=== PATIENT | male | born 1940 | race Caucasian/White ===

== ENCOUNTER 2023-08-02 14:45 | Outpatient (REF) | payer MEDICARE, OTHER, SELFPAY ==
[2023-08-02 15:39] LABS: INR 1.48; Prothrombin Time 15.1 sec (9.0-11.6)
== END 2023-08-02 14:46 | disposition home or self-care (01) ==
LOC: LAB 14:45
PROVIDERS: PCP Family Medicine; Visit Provider Family Medicine
DX: Z79.01 Long term (current) use of anticoagulants (principal)
CPT/HCPCS: 36415; 85610

== ENCOUNTER 2023-08-10 21:12 | Outpatient (REF) | payer MEDICARE, OTHER, SELFPAY ==
--- OUTSIDE RECORDS SUMMARY | 2023-08-10 21:20 | XMS_ITS | CCD ---
Author Organization [facility] Care Team Providers Care Rn Transport Name Role Phone DANNIELLE GAN Attending Unavailable RANDY SANTANA Primary Care Unavailable Randy Santana Unavailable Unavailable Unavailable Tatianna Yee Unavailable [phone] Franny Currie Unavailable Unavailable Unavailable Tatianna Yee Unavailable Ori Young Unavailable Unavailable Unavailable DO Karin Yeelin E Primary Care Provider DO Tatianna Yee Other Provider MD Ori Young Attending Provider [phone] MD Dannielle Gan Attending Provider DO Tatianna Yee Primary Care Provider DO Tatianna Yee Other Provider MD Ori Young Attending Provider [phone] MD Dannielle Gan Attending Provider DO Tatianna Yee Primary Care Provider MD Dannielle Gan Attending Provider Saran Slaughter Unavailable Elvia ECHEVARRIA, Dr. Dannielle Bland Referring Unavailable Elvia ECHEVARRIA, Dr. Dannielle Bland Attending Unavailable Estrellita AGN Admitting Unavailable Schwerer, Tatianna E Primary Care Unavailable MCGUINN, W CARIE Attending Unavailable Provider, None Primary Care Unavailable MCGUINN, W CARIE Admitting Unavailable MCGUINN, W CARIE Attending Unavailable MCGUINN, W CARIE Admitting Unavailable Provider, None Primary Care Unavailable MCGUINN, W CARIE Attending Unavailable Schwerer, Tatianna E Primary Care Unavailable MCGUINN, W CARIE Attending Unavailable MCGUINN, W CARIE Admitting Unavailable Schwerer, Tatianna E Admitting Unavailable Schwerer, Tatianna E Attending Unavailable Schwerer, Tatianna E Primary Care Unavailable Schwerer, Tatianna E Primary Care Unavailable MCGUINN, W CARIE Attending Unavailable MCGUINN, W CARIE Admitting Unavailable Schwerer, Tatianna E Primary Care Unavailable MCGUINN, W CARIE Attending Unavailable MCGUINN, W CARIE Admitting Unavailable Schwerer, Tatianna E Admitting Unavailable Schwerer, Tatianna E Attending Unavailable Schwerer, Tatianna E Primary Care Unavailable MCGUINN, W CARIE Attending Unavailable Schwerer, Tatianna E Primary Care Unavailable MCGUINN, W CARIE Admitting Unavailable MCGUINN, W CARIE Attending Unavailable Schwerer, Tatianna E Primary Care Unavailable MCGUINN, W CARIE Admitting Unavailable Schwerer, Tatianna E Attending Unavailable Schwerer, Tatianna E Primary Care Unavailable Schwerer, Tatianna E Admitting Unavailable MCGUINN, W CARIE Admitting Unavailable Schwerer, Tatianna E Primary Care Unavailable ELVIA W CARIE Attending Unavailable Schwerer DO Tatianna E Primary Care Provider DO Santy Mayfield Emergency Provider [phone] Santy Mayfield Attending Unavailable Santy Mayfield Admitting Unavailable Schwerer, Tatianna E Primary Care Unavailable Allergies Allergy Classification Reported Allergen(s) Allergy Type Date of Onset Reaction(s) Facility (19 sources) Sulfonamides (Antibiotic); Translations: [Sulfa Drugs] Allergy to drug (finding) [place] [address] DO Work Phone: (19 sources) Bee Sting Drug allergy swelling [facility] [place] Other (1 source) Bee pollen Allergy to substance 4 Unknown Reaction [facility] (2 sources) bee venom protein (honey bee); Translations: [bee venom protein (honey bee)] Allergy to substance 4 Swelling [facility] Medications Current Medications Medication Drug Class(es) Dates Sig (Normalized) Sig (Original) Albuterol Sulfate 108 (90 Base) MCG/ACT (19 sources) take 1 puff(s) by inhalation every four hours as needed Albuterol Sulfate 108 (90 Base) MCG/ACT 1 puff as needed Inhalation every 4 hrs prn Active take 1 puff(s) by in halation every four hours as needed Albuterol Sulfate 108 (90 Base) MCG/ACT 1 puff as needed Inhalation every 4 hrs Active atorvastatin 20 mg oral tablet (20 sources) HMG-CoA Reductase Inhibitor Start: 01-05-2019 take 20 mg by mouth once daily Atorvastatin Active 20 MG PO Daily January 05, 2019 12:00am clonazePAM 0.5 mg oral tablet (20 sources) Benzodiazepine Start: 01-23-2022 take 1-2 tablets by mouth once daily at bedtime clonazePAM 0.5 MG 1-2 tablet at bedtime Orally Once a day for 30 days Jan, Active Start: 10-17-2021 take 1-2 tablets by mouth once daily at bedtime clonazePAM 0.5 MG 1-2 tablet at bedtime Orally Once a day for 30 days Sep, Active Start: 01-05-2019 End: 07-29-2023 take 0.5 mg by mouth twice daily Clonazepam Discontinued 0.5 MG PO Twice daily 0 January 10, 2019 9:56am July 29, 2023 1:28pm CPAP Machine (19 sources) CPAP Machine Active digoxin 0.25 mg oral tablet (20 sources) Cardiac Glycoside Start: 11-13-2021 take 250 ug by mouth once daily Digoxin Active 250 MCG PO Daily November 13, 2021 12:00am Start: 11-13-2021 take 250 ug by mouth once payal y Digoxin Active 250 MCG PO Daily November 13, 2021 12:00am Start: 06-26-2021 take 1 tablet by mouth once da juana Digoxin 250 MCG Oral Tablet take 1 tablet by mouth once daily Quantity: 90 Refills: 3 Ordered: 17-May-2022 Marialuisa Deshpande MD Start : 26-Jun-2021 Active take 1 tablet by jim th every twenty-four hours Digoxin 250 MCG 1 tablet Orally Once a day Active furosemide 40 mg oral tablet (20 sources) Loop Diuretic Start: 06-26-2021 take 2 tablets by mouth in the morning Furosemide 40 MG Oral Tablet take 2 tablets in the am and take 2 tablets in the pm as needed Quantity: 360 Refills: 0 Ordered: 06-Aug-2022 Dannielle Gan MD Start : 26-Jun-2021 Active Start: 01-05-2019 End: 07-29-2023 take 40 mg by mouth twice daily Furosemide Active 40 M G PO Twice daily July 29, 2023 10:32am melatonin 10 mg oral tablet (9 sources) Start: 11-13-2021 take 10 mg by mouth at bedtime Melatonin Active 10 MG PO Bedtime November 13, 2021 12:00am Start: 11-13-2021 take 10 mg by mouth at bedtime Melatonin Active 10 MG PO Bedtime November 13, 2021 12:00am take 1 tablet by jim th once daily as needed Melatonin 10 MG Oral Tablet TAKE 1 TABLET Daily prn Quantity: 0 Refills: 0 Ordered: 06-Aug-2022 DO Active 24 hr metoprolol succinate 50 mg extended release oral tablet (20 sources) beta-Adrenergic Patti Start: 01-05-2019 take 50 mg by mouth once daily Metoprolol Succinate Active 50 MG PO Daily January 05, 2019 12:00am omeprazole 40 mg delayed release oral capsule (14 sources) Proton Pump Inhibitor Start: 05-29-2023 take 40 mg by mouth once daily Omeprazole Active 40 MG PO Daily May 29, 2023 1:00am Start: 01-29-2022 take 1 capsule by mo [facility] once daily Omeprazole 40 MG 1 capsule 30 minutes before morning meal Orally Once a day for 30 day(s) Jan, Active take 1 capsule by mo [facility] at breakfast Omeprazole 40 MG take 1 capsule by mouth 30 MINUTES PRIOR TO MORNING MEAL DAILY for 30 Active Oxygen 3 liters (19 sources) Oxygen 3 liters continuous Active warfarin sodium 5 mg oral tablet (20 sources) Vitamin K Antagonist Start: 01-05-2019 End: 06-07-2023 take 1 tablet by mouth once daily, then take 0.5 tablet by mouth once daily Warfarin Active 0 PO Daily June 07, 2023 8:06am 1 tab T, TH, Sat, Sun and 0.5 tab M, F, W orally daily; Coumadin 2.5 MG TABS TAKE 1 - 2 TABLETS DAILY OR DIRECTED BY [facility] Quantity: 0 Refills: 0 Ordered: 17-Jan-2021 DO Active Completed/Discontinued Medications Medication Drug Class(es) Dates Sig (Normalized) Sig (Original) albuterol 0.83 mg/ml inhalation solution (12 sources) beta2-Adrenergic Agonist Start: 01-10-2019 End: 11-13-2021 take 2.5 mg by inhalation four times daily Albuterol Sulfate Discontinued 2.5 MG INHALATION Four times daily - Respiratory 180 January 10, 2019 12:00am November 13, 2021 9:31am Use with ipratropium. Albuterol Sulfat e (2.5 MG/3ML) 0.083% 3 mL as needed Inhalation every 6 hrs Active Albuterol Sulfat e (2.5 MG/3ML) 0.083% 3 mL as needed Inhalation every 6 hrs Active allopurinol 300 mg oral tablet (20 sources) Xanthine Oxidase Inhibitor take 1 tablet by mouth once daily Allopurinol 300 MG Oral Tablet TAKE 1 TABLET DAILY DIRECTED. Quantity: 0 Refills: 0 Ordered: 11-Jul-2021 DO Active ipratropium bromide 0.2 mg/ml inhalation solution (5 sources) Anticholinergic Start: End: take 0.5 mg by inhalation four times daily Ipratropium [place] Discontinued 0.5 MG INHALATION Four times daily - Respiratory 150 January 10, 2019 12:00am November 13, 2021 9:31am Use with albuterol. Multivitamin preparation (5 sources) Start: End: take 1 tablet by mouth once daily Multivitamin Discontinued 1 TAB PO Daily January 04, 2019 11:00pm November 13, 2021 8:32am Start: 01-05-2019 End: 11-13-2021 take 1 tablet by mouth once daily Multivitamin Discontinued 1 TAB PO Daily January 05, 2019 12:00am November 13, 2021 9:32am Oxygen (4 sources) Oxygen Quantity: 0 Refills: 0 Ordered: 06-Aug-2022 DO Active predniSONE 10 mg oral tablet (5 sources) Start: 01-10-2019 End: 11-13-2021 Prednisone Discontinued 10 M G PO As Directed 41 January 10, 2019 12:00am November 13, 2021 9:32am Take 4 tonight then 4 twice daily for 2 days, then 4 daily for 2 days, then 3 daily for 2 days, then 2 daily for 2 days, then 1 daily for 2 days,then one half daily for 2 days then stop. Vit C-S.Dwjmiq-Eqnwgc-Ffxeo Sd (Tart Wang) 56-408-15-75-20 mg Capsule (5 sources) Start: 01-06-2019 End: 11-13-2021 Vit C-S.Qverdr-Iggrwt-Jnesc Sd (Tart Wang) 03-023-18-75-20 mg Capsule Discontinued 3 TAB PO Daily January 05, 2019 11:00pm November 13, 2021 8:32am Start: 01-06-2019 End: 11-13-2021 Vit C-S.Spajuv-Zwgxat-Nfjtc Sd (Tart Wang) 37-046-69-75-20 mg Capsule Discontinued 3 TAB PO Daily January 06, 2019 12:00am November 13, 2021 9:32am Problems Active Problems Problem Classification Problem Date Documented Da te Episodic/Chronic Cardiac dysrhythmias (20 sources) Permanent atrial fibrillation; Translations: [Atrial fibrillation] Onset: 10-17-2021 Resolved: 10-17-2021 Chronic Chronic kidney disease (12 sources) Chronic kidney disease stage 3; Translations: [Chronic kidney disease, stage 3 (moderate)] Chronic Chronic obstructive pulmonary disease and bronchiectasis (20 sources) Chronic obstructive lung disease; Translations: [Chronic airway obstruction, not elsewhere classified] Onset: 01-24-2021 Resolved: 07-25-2021 Chronic Diabetes mellitus without complication (14 sources) Type 2 diabetes mellitus without complication; Translations: [Type 2 diabetes mellitus without complications] Onset: 10-17-2021 Resolved: 10-17-2021 Chronic Diabetes mellitus without complication (12 sources) Impaired fasting glycemia; Translations: [Impaired fasting glucose] Episodic Disorders of lipid metabolism (20 sources) Hyperlipidemia; Translations: [Other and unspecified hyperlipidemia] Onset: 10-17-2021 Resolved: 10-17-2021 Chronic Essential hypertension (13 sources) Essential hypertension; Translations: [Essential (primary) hypertension] Onset: 10-17-2021 Resolved: 10-17-2021 Chronic Fluid and electrolyte disorders (12 sources) Hyperkalemia; Translations: [Hyperkalemia] 01-08-2019 Episodic Hypertension with complications and secondary hypertension (12 sources) Chronic kidney disease due to hypertension; Translations: [Hypertensive chronic kidney disease with stage 1 through stage 4 chronic kidney disease, or unspecified chronic kidney disease] Chronic Other aftercare (19 sources) Drug therapy finding; Translations: [Long-term (current) use of other medications] Episodic Other connective tissue disease (12 sources) Pain in left foot; Translations: [Pain in left foot] Episodic Other gastrointestinal disorders (10 sources) Dysphagia; Translations: [Dysphagia, unspecified] Episodic Other gastrointestinal disorders (5 sources) Dysphagia, unspecified Onset: 10-17-2021 Resolved: 10-23-2021 Episodic Other hereditary and degenerative nervous system conditions (10 sources) Essential tremor; Translations: [Essential tremor] Chronic Other hereditary and degenerative nervous system conditions (2 sources) Essential tremor Onset: 10-17-2021 Resolved: 10-17-2021 Chronic Other lower respiratory disease (19 sources) Dyspnea; Translations: [Other respiratory abnormalities] Episodic Other nervous system disorders (1 source) Unable to walk; Translations: [Difficulty in walking, not elsewhere classified] 07-29-2023 Chronic Other non-traumatic joint disorders (1 source) Hip pain; Translations: [Pain in unspecified hip] 07-29-2023 Episodic Other non-traumatic joint disorders (1 source) Pain in left hip; Translations: [Pain in left hip] Onset: 07-29-2023 Episodic Other nutritional; endocrine; and metabolic disorders (2 sources) Body mass index 30+ - obesity; Translations: [Body Mass Index 35.0-35.9, adult] Chronic Other nutritional; endocrine; and metabolic disorders (18 sources) Obesity; Translations: [Obesity, unspecified] Chronic Other screening for suspected conditions (not mental disorders or infectious disease) (8 sources) Encounter for screening for malignant neoplasm of colon; Translations: [INR raised] Onset: 10-17-2021 Resolved: 10-23-2021 Episodic Residual codes; unclassified (19 sources) Obstructive sleep apnea syndrome; Translations: [Obstructive sleep apnea (adult) (pediatric)] Chronic Residual codes; unclassified (4 sources) Obstructive sleep apnea (adult) (pediatric) Onset: 01-24-2021 Resolved: 07-25-2021 Chronic Residual codes; unclassified (5 sources) Tobacco user; Translations: [Tobacco use] 01-06-2019 Episodic Respiratory failure; insufficiency; arrest (adult) (20 sources) Chronic hypercapnic respiratory failure; Translations: [Chronic respiratory failure with hypercapnia] Onset: 01-24-2021 Resolved: 07-25-2021 Chronic Respiratory failure; insufficiency; arrest (adult) (3 sources) Acute respiratory acidosis; Translations: [Acute respiratory failure with hypercapnia] 01-05-2019 Episodic Screening and history of mental health and substance abuse codes (18 sources) Ex-smoker; Translations: [Personal history of tobacco use] Episodic Comment on above: Quit: 02/2019; Past or Other Problems Problem Classification Problem Date Documented Da te Episodic/Chronic Other connective tissue disease (1 source) Pain in left foot Onset: 11-27-2021 Resolved: 11-27-2021 Episodic Results Test Name Value Interpretation Reference Range Facility Basic Metabolic Panelon 05 Anion gap [Moles/Vol] Not performed Normal 6.0-15.0 [facility] Comment on above: Performed By: #### C BC, BMP #### [address] Calcium [Mass/Vol] 9.0 mg/dL Normal 8.6-10.3 [facility] Comment on above: Performed By: #### C BC, BMP #### [facility] [address] [place] [id number] [place] Chloride [Moles/Vol] 92 mmol/L Low 98-107 [facility] Comment on above: Performed By: #### C BC, BMP #### [facility] [address] [place] [id number] [place] CO2 [Moles/Vol] 44.6 mmol/L High 21.0-31.0 [facility] Comment on above: Performed By: #### C BC, BMP #### [facility] [address] [place] [id number] [place] Creatinine [Mass/Vol] 1.29 mg/dL Normal 0.70-1.30 [facility] Comment on above: Performed By: #### C BC, BMP #### [facility] [address] [place] [address] [place] Creatinine Clr Calc Pharmacy 57.81 Normal [facility] Comment on above: Result Comment: PERF ORMED BY: [place] [address] PATHOLOGIST AUDIOPROSTHOLOGIST CATE DOBBS M.D. Performed By: #### C BC, BMP #### [facility] [address] [place] [address] [place] GFR/1.73 sq M.predicted MDRD (S/P/Bld) [Vol rate/Area] 55.704 mL/min/{1.73_m2} Normal [facility] Comment on above: Performed By: #### C BC, BMP #### [address] Glucose [Mass/Vol] 121 mg/dL High 70-100 [facility] Comment on above: Result Comment: [facility] Glucose Reference Range is dependent on time and content of last meal. Glucose of more than 200 mg/dL in a nonstressed, ambulatory subject supports the diagnosis of Diabetes Mellitus. ADA recommended reference range Performed By: #### C BC, BMP #### [address] Potassium Normal 3.5-5.1 [facility] Comment on above: Result Comment: Spec imen hemolyzed, redraw requested Performed By: #### C BC, BMP #### [place] [address] [place] Sodium [Moles/Vol] 138 mmol/L Normal 136-145 [facility] Comment on above: Performed By: #### C BC, BMP #### [facility] [address] Urea nitrogen [Mass/Vol] 25 mg/dL Normal 7-25 [facility] Comment on above: Performed By: #### C BC, BMP #### [facility] [address] [place] [id number] [facility] Basophils Auto (Bld) [#/Vol] Ordered By: Santy Mayfield on 07-29-2023 Basophils (Bld) [#/Vol] 0.1 10*3/uL 0.0-0.2 [facility] Basophils/100 WBC Auto (Bld) Ordered By: Santy Mayfield on 07-29-2023 Basophils/100 WBC (Bld) 0.8 % . [facility] CT hip LT wo conon CT hip LT wo con [facility] [place] [address] [place] [id number] Scan Report Signed Patient: Elinor Flanagan MR#: [id number] 149 : 1940 Acct:[id number] Age/Sex: 83 / M ADM Date: 07/29/23 Loc: ER Room: Type: [facility] ER Attending Dr: Copies to: Santy Mayfield DO Ordering Provider: Santy Mayfield DO Date of Service: 07/29/23 CT/CT hip LT wo con: hip pain CT left hip without contrast TECHNIQUE: The CT exam was performed using one or more the following dose reduction techniques: Automated exposure control, adjustment of the MA and/or Kv according to patient size, or use of the iterative reconstruction technique. COMPARISON: 07/29/2023 plain film imaging HISTORY: Left hip pain for one week. No injury Adequate alignment. No acute bony findings. Minor left hip degeneration. No AVN. Unremarkable soft tissues. Visualized intrapelvic structures unremarkable. Mild SI joint degeneration. Lumbosacral degeneration. Benign sclerotic foci. CT/CT hip LT wo con IMPRESSION: Mild left hip degeneration. No acute findings. Impression dictated by: Brandon Quezada M.D.07/29/2023 11:46 AM Dictation Location: [place] [address] Transcribed By: [facility] 07/29/23 1146 Dictated By: Brandon Quezada DO 07/29/23 1142 Signed By: 07/29/23 1146 Normal [facility] Calcium [Mass/volume] in Ser um or PlasmaOrdered By: Santy Mayfield on 07-29-2023 Calcium [Mass/Vol] 9.0 mg/dL 8.6-10.3 [facility] Carbon dioxide, total [Moles /volume] in Serum or PlasmaOrdered By: Santy Mayfield on 07-29-2023 CO2 [Moles/Vol] 44.6 mmol/L 21.0-31.0 [facility] Chloride [Moles/volume] in S anju or PlasmaOrdered By: Santy Mayfield on 07-29-2023 Chloride [Moles/Vol] 92 mmol/L 98-107 [facility] Complete Blood Count Auto Di ffon 07-29-2023 Basophils (Bld) [#/Vol] 0.1 10*3/uL Normal 0.0-0.2 [facility] Comment on above: Result Comment: PERF ORMED BY: [place] [address] PATHOLOGIST AUDIOPROSTHOLOGIST CATE DOBBS M.D. Performed By: #### C BC, BMP #### [address] Basophils/100 WBC (Bld) 0.8 % Normal . [facility] Comment on above: Performed By: #### C BC, BMP #### [address] Eosinophils (Bld) [#/Vol] 0.5 10*3/uL High 0.0-0.45 [facility] Comment on above: Performed By: #### C BC, BMP #### [address] Eosinophils/100 WBC (Bld) 6.7 % Normal . [facility] Comment on above: Performed By: #### C BC, BMP #### [address] Erythrocyte distribution width (RBC) [Ratio] 14.8 % Normal 12.0-14.8 [facility] Comment on above: Performed By: #### C BC, BMP #### [address] Hematocrit (Bld) [Volume fraction] 44.4 % Normal 38.8-50.0 [facility] Comment on above: Performed By: #### C BC, BMP #### [address] Hemoglobin (Bld) [Mass/Vol] 14.2 g/dL Normal 13.0-17.0 [facility] Comment on above: Performed By: #### C BC, BMP #### [address] Lymphocytes (Bld) [#/Vol] 1.2 10*3/uL Normal 1.00-4.8 [facility] Comment on above: Performed By: #### C BC, BMP #### [address] Lymphocytes/100 WBC (Bld) 15.2 % Normal . [facility] Comment on above: Performed By: #### C BC, BMP #### [address] MCH (RBC) [Entitic mass] 28.1 pg Normal 27.5-35.2 [facility] Comment on above: Performed By: #### C BC, BMP #### [address] MCV (RBC) [Entitic vol] 87.6 fL Normal 83.5-101 [facility] Comment on above: Performed By: #### C BC, BMP #### [address] Mean Corpuscular HGB Conc 32.1 g/dL Low 32.5-35.6 [facility] Comment on above: Performed By: #### C BC, BMP #### [address] Monocytes (Bld) [#/Vol] 0.8 10*3/uL Normal 0.0-0.8 [facility] Comment on above: Performed By: #### C BC, BMP #### [address] Monocytes/100 WBC (Bld) 19.66 % Normal 0.00-20.00 [facility] Comment on above: Performed By: #### C BC, BMP #### [facility] [address] [place] [address] [place] Monocytes/100 WBC (Bld) 10.8 % Normal . [facility] Comment on above: Performed By: #### C BC, BMP #### [facility] [address] [place] [address] [place] Neutrophils (Bld) [#/Vol] 5.1 10*3/uL Normal 1.8-7.7 [facility] Comment on above: Performed By: #### C BC, BMP #### [facility] [address] [place] [address] [place] Neutrophils/100 WBC (Bld) 66.5 % Normal . [facility] Comment on above: Performed By: #### C BC, BMP #### [facility] [address] [place] [address] [place] NRBC% 0.1 /100{WBC} Normal 0-0.5 [facility] Comment on above: Performed By: #### C BC, BMP #### [facility] [address] [place] [address] [place] Platelet mean volume (Bld) [Entitic vol] 8.7 fL Normal 6.6-10.1 [facility] Comment on above: Performed By: #### C BC, BMP #### [facility] [address] [place] [address] [place] Platelets (Bld) [#/Vol] 182 10*3/uL Normal 150-450 [facility] Comment on above: Performed By: #### C BC, BMP #### [facility] [address] [place] [id number] [place] RBC (Bld) [#/Vol] 5.07 10*6/uL Normal 3.90-5.60 [facility] Comment on above: Performed By: #### C BC, BMP #### [facility] [address] [place] [address] [place] WBC (Bld) [#/Vol] 7.6 10*3/uL Normal 4.1-10.5 [facility] Comment on above: Performed By: #### C BC, BMP #### [facility] [address] Creatinine [Mass/volume] in Serum or PlasmaOrdered By: Santy Mayfield on 07-29-2023 Creatinine [Mass/Vol] 1.29 mg/dL 0.70-1.30 [facility] Eosinophils Auto (Bld) [#/Vo l]Ordered By: Santy Mayfield on 07-29-2023 Eosinophils (Bld) [#/Vol] 0.5 10*3/uL 0.0-0.45 [facility] Eosinophils/100 WBC Auto (Bl d)Ordered By: Santy Mayfield on 07-29-2023 Eosinophils/100 WBC (Bld) 6.7 % . [facility] Erythrocyte distribution wid th Auto (RBC) [Ratio]Ordered By: Santy Mayfield on 07-29-2023 Erythrocyte distribution width (RBC) [Ratio] 14.8 % 12.0-14.8 [facility] Glucose [Mass/volume] in Ser um or PlasmaOrdered By: Santy Mayfield on 07-29-2023 Glucose [Mass/Vol] 121 mg/dL 70-100 [facility] Comment on above: ADA recommended refe rence rangeRandom Glucose Reference Range is dependent on time and content of last meal. Glucose of more than 200 mg/dL in a nonstressed, ambulatory subject supports the diagnosis of Diabetes Mellitus. Hematocrit Auto (Bld) [Volum e fraction]Ordered By: Santy Mayfield on 07-29-2023 Hematocrit (Bld) [Volume fraction] 44.4 % 38.8-50.0 [facility] Hemoglobin [Mass/volume] in BloodOrdered By: Santy Mayfield on 07-29-2023 Hemoglobin (Bld) [Mass/Vol] 14.2 g/dL 13.0-17.0 [facility] Leukocytes [#/volume] correc tab for nucleated erythrocytes in Blood by Automated counOrdered By: Santy Mayfield on 07-29-2023 WBC corrected for nucl RBC Auto (Bld) [#/Vol] 7.6 10*3/uL 4.1-10.5 [facility] Lymphocytes Auto (Bld) [#/Vo l]Ordered By: Santy Myafield on 07-29-2023 Lymphocytes (Bld) [#/Vol] 1.2 10*3/uL 1.00-4.8 [facility] Lymphocytes/100 WBC Auto (Bl d)Ordered By: Santy Mayfield on 07-29-2023 Lymphocytes/100 WBC (Bld) 15.2 % . [facility] MCH Auto (RBC) [Entitic mass ]Ordered By: Santy Mayfield on 07-29-2023 MCH (RBC) [Entitic mass] 28.1 pg 27.5-35.2 [facility] MCHC Auto (RBC) [Mass/Vol]Or dered By: Santy Mayfield on 07-29-2023 MCHC (RBC) [Mass/Vol] 32.1 g/dL 32.5-35.6 [facility] MCV Auto (RBC) [Entitic vol] Ordered By: Santy Mayfield on 07-29-2023 MCV (RBC) [Entitic vol] 87.6 fL 83.5-101 [facility] Monocyte distribution width [Entitic volume] in Blood by AutomatedOrdered By: Santy Mayfield on 07-29-2023 Monocyte distribution width Auto (Bld) [Entitic vol] 19.66 % 0.00-20.00 [facility] Monocytes Auto (Bld) [#/Vol] Ordered By: Santy Mayfield on 07-29-2023 Monocytes (Bld) [#/Vol] 0.8 10*3/uL 0.0-0.8 [facility] Monocytes/100 WBC Auto (Bld) Ordered By: Santy Mayfield on 07-29-2023 Monocytes/100 WBC (Bld) 10.8 % . [facility] Neutrophils Auto (Bld) [#/Vo l]Ordered By: Santy Mayfield on 07-29-2023 Neutrophils (Bld) [#/Vol] 5.1 10*3/uL 1.8-7.7 [facility] Neutrophils/100 WBC Auto (Bl d)Ordered By: Santy Mayfield on 07-29-2023 Neutrophils/100 WBC (Bld) 66.5 % . [facility] No Panel InformationOrdered By: Santy Mayfield on 07-29-2023 Estimated GFR (CKD-EPI) 55.704 mL/Min [facility] Creatinine Clearance (Chem 57.81 [facility] Nucleated erythrocytes [Pres ence] in Blood by Automated countOrdered By: Santy Mayfield on 07-29-2023 Nucleated RBC Auto Ql (Bld) 0.1 /100{WBC} 0-0.5 [facility] Platelet mean volume Auto (B ld) [Entitic vol]Ordered By: Santy Mayfield on 07-29-2023 Platelet mean volume (Bld) [Entitic vol] 8.7 fL 6.6-10.1 [facility] Platelets Auto (Bld) [#/Vol] Ordered By: Santy Mayfield on 07-29-2023 Platelets (Bld) [#/Vol] 182 10*3/uL 150-450 [facility] Potassium [Moles/volume] in Serum or PlasmaOrdered By: Santy Mayfield on 07-29-2023 Potassium [Moles/Vol] 4.3 mmol/L 3.5-5.1 [facility] RBC Auto (Bld) [#/Vol]Ordere d By: Santy Mayfield on 07-29-2023 RBC (Bld) [#/Vol] 5.07 10*6/uL 3.90-5.60 [facility] Potassiumon Potassium [Moles/Vol] 4.3 mmol/L Normal 3.5-5.1 [facility] Comment on above: Order Comment: BOTH TUBES HEMOLYZED. NOTIFIED RUSLAN. REQUESTED PHLEB Result Comment: PERF ORMED BY: [place] [address] PATHOLOGIST AUDIOPROSTHOLOGIST CATE DOBBS M.D. Performed By: #### R ROLLY Sherman #### [address] Serum or plasma anion gap de terminationOrdered By: Santy Mayfield on 07-29-2023 Anion gap [Moles/Vol] TNP [facility] Comment on above: Test not performed Sodium [Moles/volume] in Ser um or PlasmaOrdered By: Santy Mayfield on 07-29-2023 Sodium [Moles/Vol] 138 mmol/L 136-145 [facility] US venous duplex LE LTon US venous duplex LE LT [facility] [place] [address] Ultrasound Report Signed Patient: Elinor Flanagan MR#: [id number] 149 : 1940 Acct:[id number] Age/Sex: 83 / M ADM Date: 07/29/23 Loc: ER Room: Type: [facility] ER Attending Dr: Ordering Provider: Santy Mayfield DO Date of Service: 07/29/23 US/US venous duplex LE LT: leg swelling Copies to: Santy Mayfield DO LEFT LOWER EXTREMITY VENOUS DUPLEX INDICATION: Left leg edema and swelling. Unilateral left lower extremity venous duplex Doppler study was obtained utilizing B-mode, color- flow and spectral Doppler. FINDINGS: The left common femoral, femoral, and popliteal veins showed adequate compressibility, color-flow and augmentation. The left posterior tibial and peroneal veins were compressible, as well as proximal greater saphenous vein. The contralateral right common femoral vein was compressible with color-flow and augmentation. US/US venous duplex LE LT IMPRESSION: NO EVIDENCE OF DEEP VENOUS THROMBOSIS IN THE LEFT LOWER EXTREMITY. NO SUPERFICIAL THROMBOPHLEBITIS WAS NOTED. Impression dictated by: Miguel Angel Bee MD07/29/2023 3:38 PM [facility] Tech: Stephanie Noel Transcribed By: KARAN 07/29/23 1538 Dictated By: Miguel Angel Bee MD 07/29/23 1538 Signed By: 07/29/23 1538 Normal [facility] Urea nitrogen [Mass/volume] in Serum or PlasmaOrdered By: Santy Mayfield on 07-29-2023 Urea nitrogen [Mass/Vol] 25 mg/dL 7-25 [facility] WBC Auto (Bld) [#/Vol]Ordere d By: aSnty Mayfield on 07-29-2023 WBC (Bld) [#/Vol] 7.6 10*3/uL 4.1-10.5 [facility] XR hip LT min 2V(w/wo pelvis )*on 07-29-2023 XR hip LT min 2V(w/wo pelvis)* [facility] [place] [address] [place] [address] XRay Report Signed Patient: Elinor Flanagan MR#: [id number] 149 : 1940 Acct:[id number] Age/Sex: 83 / M ADM Date: 07/29/23 Loc: ER Room: Type: [facility] ER Attending Dr: Copies to: Santy Mayfield DO Ordering Provider: Santy Mayfield DO Date of Service: 07/29/23 XR/XR hip LT min 2V(w/wo pelvis)*: Extremity Injury, Lower CLINICAL DATA: Left hip pain with swelling and pain at the back of the left thigh. No known injury. LEFT HIP WITH AP PELVIS - 3 views COMPARISON: 05/07/2009 AP view of the pelvis as well as AP and frog-lateral views of the left hip were obtained. No fracture or dislocation is identified. There is narrowing of the right hip joint space where there is also marginal spurring at the periphery of the femoral head and acetabulum. There is no prominent degenerative change at the left hip. Minor sclerosis is seen at the inferior SI joints. There is also degenerative change at the lower imaged lumbar spine. No soft tissue abnormalities are present. XR/XR hip LT min 2V(w/wo pelvis)* IMPRESSION: NO ACUTE BONY FINDINGS. Impression dictated by: Virgie Turcios M.D.07/29/2023 10:57 AM Dictation Location: [place] [address] Transcribed By: [facility] 07/29/23 1057 Dictated By: Virgie Turcios MD 07/29/23 1054 Signed By: 07/29/23 1057 Normal [facility] Anti-coagulation Progress No delphine 07-18-2023 Anti-coagulation Progress Note Pt is an 83 yom with a history of A Fib presenting today for anticoagulation monitoring and adjustment. This is the patient?s second appointment with our clinic, he lives on [address] [place] Pt?s preferred pharmacy is [email or web address] in [place]. INR of 2.1 is therapeutic for this patient (goal range: 2.0-3.0) and is reflective of taking 2.5 mg once and then continuing 27.5 mg TWD. Pt verifies current dosing regimen and pt able to verbally recall dose. Pt reports 0 missed doses since last INR. Pt denies any current N/V or diarrhea. Pt denies s/sx of clotting and/or stroke. Pt denies hematuria, epistaxis, and rectal bleeding. Pt denies changes in diet, alcohol or tobacco use. Reviewed medication list and drug allergies with pt, updated any medication additions or modifications accordingly. Pt denies any pending medical or dental procedures scheduled at this time. Pt was instructed to continue 27.5 mg TWD (2.5 mg M/W/ and 5 mg AOD). With patient living on [facility], he is agreeable to RTC in 3-4 weeks. [Electronically Signed on: 07/18/2023 16:50 EDT] Saul Rahman PharmD [Verified on: 07/18/2023 16:50 EDT] Saul Rahman PharmD [facility] Coding Summaryon 07-01-2023 Coding Summary HTMLBase 64 ZhnnedcxFVa8iZu+PGhlYWQ+P X3NTRIaG02dtQPbrN0hR7YWFU lOSywgQVBQTElOSyIgbmFtZT1 kaXNjZXJu IC8+VK7dTSCzVgdsvUTgk9J7o TN9B62htf3uSEofoLO8UAAuEs Ylodhin3nagVh2RMiwJzegAqB t UVZaqM44BWG6iN42Pr36vTNmn IAvf1cjzZq6UhKdWWWyVGD5nS rtPXklb6YyQIHyP42ruQJmo4F 6 YRDzzOiihBOnOwVwkEH5lG3wF Bwvyzzel3otkfagNtn2de03xE Aog3L5vGJ9L4DyrnW8HOKnySW g FhfiwBCVuF8tvknya7koozdlM lMcHWDfZRj4ICw8USDjlAgdEf NaMM47RLD0IUIucnVzT3KiLDX s wYnvIxW2f8T2Ph7LI6YQIgmfB 1VNTUFSWTwvdGQ+JV80uq94A9 QnKavbYfh2WSKfLOO4eFR2eW7 n MUCxJFtwt0C5vRA2K7LsesCky x6du4joYJMqSTxkL44eoRQvm0 O3FGHahEV0YOFqxVacVyJhuE7 3 Oyc+KARabSjxl4GjTwxqj7giz 4giwPz4MsccHKZytoXnxXwjLZ Q3b8BbHm6zCSEzvOO1nZB8jH5 i RcDeFhP6OYwbR477LmVdaKWjK dbcB81gH4CohLE+SMToZur6HT VtaSnbZR2eU7OqDNJqtbsumVE m rXgnWP3aUYWzcapiBEYvzE5mP TGuQ2e1ZhZrXfK9GZdsM7BvYR AtaelyWj89cY3eHhEtEhG4LYl u Z6WgpcX0XFCwzJOqVAxkEVU9L 04gv4W3THJfIORjVPX3kXO8kK 1hbGlnbjogbGVmdDsgdmVydGl j SZwgDEihQ357DXAuePmeAdNmF GluZyBEYXRlOiAgMDQvMDgvMj AyNDwvdGQ+HDTwKUZ9bTcmWML n tFXqMZdgZw2ipTaqpVfbKI9eV MBkakcgGTOyxE1sMKFtgMNeuR wsBN4jARMtlbjdf486HtSiBDU 0 RMGhxIQdQ8KkhU3uNyZoSUGqY XIiL7NfjUFjLZelK827UInnNy M2RJCoszMdR2HoPUOuyYjqGcD 0 v7F1Sk5He9IxvanbR6AjvVGjP kOgMuesEEg4T9DxMtplnRA+PC 05VCVkTO00RHf6ZAM1hIjcTAy i OSWcX1RkuO7bFnDvXXQhIQWkG yc+PHRhYmxlIHdpZHRoPScxMD RrWfFyiDdwMV5xPr2iWUXmKIE v hQawpZHpYbDbr5ouEGVjJKhbY P1yoNarP5NnrOC0CULzt5q1Ct 97C33oE4DwePF+KBBxsKQ8iTW 0 uB1cOjTvAwC4UNwcU891KeQxm WYgNyynj8lrc7jeaId0DuD4NF WborTcpThsEIK5s7BfYn57I30 s IHdpZHRoPSIxNSUiIHZhbGlnb h1weI8hHb2+XJMxrLR1wIW8xE 0jGkHuGyM5KDlmC479EjFkdJE v Lhjad0exg1vclNb5HbByODRhq rPgfKirCQQ6y7HnAh66A7DycT rbz8CdGmn9rd40oBBqu1T8lZK 9 V2BuYHYgnthnqLFdfWkmHC5rR DSyzgodYUDhsX8hKIErP8s4Vk JwJdT0SVyzO4TcljO2CZWhcAH g CDZnwJCGwI2mznklv1umcbibO mPgJPBuZNs7ENx0JRFqaVvoPp NfIMM1NiP4YAX5aZUcuX3sgJz n muffsO7lLvu+MVM9xWMhcTWBJ D2wXlqhaQV+FNYyMLD3fOftND lhMHTjeA3mAEHvL0f2KaUcOsT 1 MSnwQ1HpjaN4COXcvVLqOBSod XPIpO9kgcwjw3mpejsjEiZbPD SfJUc7KFm2ZVPybKevVxEsRUU 0 AnG5TCT1iMHpfA6krFgdfqzow G9wOyc+UxakwCksJWB6ZJp2J2 OfTuc1TJWjqWzlBI4abAAoKSm u Is0crTegpNiyCV0eORVjncxkf 397ZkGxw2vdQVWefEWlTNcbVY F7W40yk6J5OGNxYIUuFZJ2sFY 4 mH8xaWulggiriMYftLrzupHrc FbiCUxmYWuiS478HXWxkKhdZd XxJMm2B4ZiNuu8GJKubHmzNG3 n nGFzKRcdAm5yrZdxjWzfVR0wD EBavtnrd802CvLsr7hqANJieR UrHOlgUMM5Q71rv8J2XQFzYAB w PTZ6rQG7bK5zxTpjzlrnhBPuk NxfdiEubFmsWJljERjuJ542QV ZhqVcrBgFwbCj2H1ZgXzq1NZI z pBxuZC8rbLJdNBemLi4poAwpz UrdPR1rYHKloldpg564GcXaq9 gpOJDylZVuCIpyNQD4Q54qg6I 6 CYVyGXDpHZK3wQU2zO3pfEoax jogbGVmdDsgdmVydGljYWwtYW qtA463WKPlsHgwNxNwuEbjsgN g JRdqWKe2U2QrQvftrZD+PC90Y BFeJN34uOStnPPlt2hvjAe4Sv BhMBAaMTV5kUamGXxid3EzATT t Y50zeLAzx8Z3AINfjCeafFAcF bLcnUH8gT8fCQyhzoxuw6woek gcWxrmi0oumq90kX32M82tANq p XXLiSFIwCIVnYVBciTyase5eb G9wIi8+NXUpgPS4xNG2rR4lZL UkUwH4YMhdX198PpNoiASgGyo j w1wzc5jxcTp8OmK4JNGeskWbi PedECZ8i6GrVa60P53bYPcaWA XnTLPlRAFwYONmwEfemt4ueO0 w Ii8+XMFgaNY3cCJ0hR5cEdAtZ eD7PUttQ793UiAlsJMlHondA5 2gU3RzfJK+APGdZuy4EOSraJn s IB8ntWFeAGtsUi1uCSH1RbHpS bAzCJdhB3LzROYjifxyvkwjyL C5NPSmVQWofA00Ie6lcBtmPFW w vVXWnJ0umacem2uzhenoZiQxV OBoIZm6ALx3IYPidFazYiKmGZ R3GkJ0XVJ7mQAiaM4bqVvzqsr g lF8gB8EmSOUqbauiTx14lC9mJ gYeSnX2YAenTkp+J2rCOEDIQU LZL79PQEVeBPMHAC3XFA21TT8 8 cPMuu6T0aCO3C3RxOODsibbzf wbrwGH7GFEiXBRqfC17bKPfNL dhBa3of5F9p234PNGhYLBycM5 7 Qd0heEtuRAXmoTRKkZ7wfvzlf 7mqnanaNqWeVBYiVFb4TVd9HV BlgXqeCuIpKYX5PtJ0OIX3nTM h uZ4ugIdveozvbM0uLis+MTIvM CVeNRy8CzxqaFV+XAPiYXG4uY ztGCztMIHqiB7dFRDbB8b0MyO w GvR4HOeqN8YfSLVhcbuoMw57u G9xPkLjFtE2PEvsY7VqsaW1YF MtzKWzWYafQJQ9R37yb0O1UFB w HVLvBPH2zND6wR1iyIxzehdcr GVmdDsgdmVydGljYWwtYWxpZ2 12RSJndHsnMimhNEbsHFAkOA6 0 KX76oGXig7O5jLX3R9RpYSAkn dlbtqbcjJY9ABXzBZFiiZ21vB SeGLilFv4jv4M1z154IQSlLMW w bR74Ne9tsJwcHWSccANIhS6lu cxtq2ljgnveVoLcGNOeUUi2QN g0KDVxvVhtCfPdFSR4ZuP2DTV 0 hKFxvT9qeGeldyoxxZ0eFqb+T UFMRTwvdGQ+IBEjFGJ5lNdiJE ufGXDbxM5jNRWsX4v2MmVfKwD 1 RIbiC3DjZFSewlqcFs79kB7qZ sAtXzE2VZurB9KzgmQ2GOJywU ReRYzlQTK4X38bd1P8IZPxEKX w MNS7pGB8hP7gyEvcpisnpZWoj DjxbkPovWcnBOapUYjwM714VF CqqSbvYuAaX7XuiprmEuHQmUC w CMPsOL87MG84UL95B1XoLgayu GFibGU+PHRhYmxlIHdpZHRoPS nrYOMqLmAnxHmhFS0zYt3uHDN y SQKubOdlzEKfNjOjk0ggIWFuK JjaZZ5wrRklV9BepCM3SUDcp1 m2Oa55N59zD7OhhEJ+PGNvbCB 3 hIG4lL8xAoYkHiT9SRynI432H tUmfCGeKfnzw9gkv7tfeGn8Oa CaVQAbszOftMigJVL4x9YmLp0 8 S19eEMahXBKgRAYbJILtKQLjx Ichvd4ruW8bVl0+BYMeoZH8rK Y5nB1rGjHoFsB0XAhyG461EvP v mUJcPiflW68gY5SmhDN+PHRyP zl7YNOnzAwcLZ9cbHAyPDskOz 3sDDK8TeLkRyNkQWfrD4HvRZN p tivayjqxsCQ4UNIyDTSfyR23Y t3bpYutTk1kOLMzAFT8SWZsvT NiZ8OlmV8mBtClLFXmETZzJ1V l wMPfPCmhO779SLklJjJ0JRMst aCxQ1HfQMDbgLpxAfB3y1I2Fo 8UjNueeLVjPV8oJmHoDGt9L1Y k Ogj8ZJSgdDezHL2huIYfAUmaY q7nbDhhkTemUC2oOHHbmndov6 12NhHqm8fqVBKpkUOoCLzzEOJ 7 C26oi2H8ADXbORMkDOC7jWH3m F9iuZtesryvyPUoyWrkzsFwrE ukQBwcSEtiW984AMZflWmgRzL J Vnz3B7WfWuf5CVNrhGkvWA7ux ENcGWjqIl8dqJjrwKmwLC8qPC Cfcjkxc459LdWlu1juKEBwoOP g APyyQIR2G16ha9Y8LZEuKTTjM YU8qBV2uZ4hwVanjihmrGYpwF piuiYicYyjUTrxOMayW105YGK v dJbpBx5RMbi0A2WsMle5CLJdg YqyNN1snZIsFSfmLv1psUmsdN nySR3sCMMgactsy727WcRqw4i k LXPmoDPvUNiuDTV9X42qq2M1C FOoIQOrBAC2qGX3qC3ruHpihz ogbGVmdDsgdmVydGljYWwtYWx p K042ZWFepHxkAxMieCRkBvpvi GQ+VQ14bi30M6EgRfddZck3JL JbYDU3zZK7aQ5cOBIkNCqel5U 5 bGU (more content not included)... [facility] Anti-coagulation Progress No delphine 06-26-2023 Anti-coagulation Progress Note Update Note: 06/25/2023(Jose Antonio Law): Per Fco, here are patient's last 3 INR readings: 05/02: 3.37 05/09: 4.35 : 2.97 06/25/2023(Joslyn Bernard): LM on Kayla's phone for her to call back to set up appointment for Reji and her. 06/19/2023(Deedee Connolly): Left vm to get pt scheduled for the beginning of next wk. Shows next INR due 06/20 however needing to schedule both him and Kayla Dress and we do not have a referral for Kayla yet. MD will be back and able to sign hers on Tuesday 06/20 Progress Note: Pt is an 83 yom with a history of A Fib presenting today for anticoagulation monitoring and adjustment. This patient?s first appointment with our clinic, [place]. Patient is on the 5 mg strength of warfarin, he takes 2.5 mg M/W/F and 5 mg AOD (27.5 mg TWD). Pt?s preferred pharmacy is [email or web address] in [place]. INR of 3.1 is slightly supratherapeutic for this patient (goal range: 2.0-3.0) and is reflective of continuing 27.5 mg TWD. Pt verifies current dosing regimen and pt able to verbally recall dose. Pt reports 0 missed doses since last INR. Pt denies any current N/V or diarrhea. Pt denies s/sx of clotting and/or stroke. Pt denies hematuria, epistaxis, and rectal bleeding. Pt denies changes in diet, alcohol or tobacco use. Reviewed medication list and drug allergies with pt, updated any medication additions or modifications accordingly. Pt denies any pending medical or dental procedures scheduled at this time. Pt was instructed to take a one-time dose of 2.5 mg tonight, in place of 5 mg, and then continue 27.5 mg TWD (2.5 mg M/W/F and 5 mg AOD). With patient living on [facility], he is agreeable to RTC in 3-4 weeks. Update: Today is patient's usual 2.5 mg dose (Saturday). He was told to take 2.[address] of 5 mg (). [Electronically Signed on: 06/26/2023 13:22 EDT] Christine Law S PharmD [Verified on: 06/26/2023 13:22 EDT] Virgen Lawp S PharmD [facility] Provider Orderson 06-18-2023 Provider Orders [id number]#1.00OTGTI [facility] PTon 05-23-2023 INR Coag (PPP) [Relative time] 2.97 {INR} High 0.91-1.11 [facility] Comment on above: Performed By: #### [id number] #### [facility] (DEFAULT) [address] [place] [address] PT 28.0 second(s) High 9.7-11.8 [facility] Comment on above: Performed By: #### [id number] #### [facility] (DEFAULT) [address] [place] [address] Provider Ord[place] 05-23-2023 Provider Orders [id number]#1.00OTGTI [facility] Coding Summaryon 05-13-2023 Coding Summary HTMLBase 64 TnzqgbccOGn3jZf+PGhlYWQ+P O7QTWHhY42hxHFdmQ3yC7LFZE lOSywgQVBQTElOSyIgbmFtZT1 kaXNjZXJu IC8+UM1mFYVaPwodxACve7O7c WS0W86nkt0aVJwpkHO7QEKoUn Whlrtys4bylMs9ZUhiAarwPcQ t VBRriP49WUM4fP43Md24cFTbb KFwt6tafNy1TwNoEXQcGGN6sK xcOYida7GlDCPmG64bjJLtl0D 6 AIGfkAdndXOhXhRdkXM4cB7wW Hxvomicl2baakvjUsm5ya71aO Qwp7G7wWX3B2ZvywJ7MPEpdLF g QynfzAFDgH4wrruvu7vubzahD cFpNGSjRTm5OAz7UKNyvXfyDr UpXE22JXD1QYXowvZmH4IcHRB s gKqeDdS8t6V8Gn9VG5QXIdgqO 1VNTUFSWTwvdGQ+DD06lm65C1 VcIcohFkc9YZWdGPF0pDO9nE7 n UWPjXJart0T9gPS1H7MttsXhz p6zk6ikYXTvMMqiV38bwDNzo2 O6OTYoePH6CXVzzGogQoJpbR2 3 Oyc+PSMgaWiza1MhIoekl7qne 1zndMj0DoijDWZlqoRtcWxcZB D9n4JgNb4bQGGdjBR0cUY9jS6 i MfBmOgE0HVtbY780PmImhUQwI vquC50tA5OthTD+UMWsGrj0FV UudGufCK2eL3AnLPVrldhsfSI m uRskAX2oXGJbkergHMPirD5dF JMnE5m6WbBkZyY1XSgzU5KfHP LcuapxAk29yK7xAzYxRdF8MCq u D0TroqQ9YDBxpPEqADrhUWA2T 76cy8N7WLEeTTWsGHA5cZF2wK 1hbGlnbjogbGVmdDsgdmVydGl j TTndIWtxV205RPZehPcgTvRaK GluZyBEYXRlOiAgMDIvMTkvMj AyNDwvdGQ+ADBrCII9eXlaVAA n xPUtAYbhSx9dtOqelArjFW4kU NSlrsgmKMRzsJ3yHAPdqUNqcU mcMD5bMSDsfhrbh981FvGfQPC 0 LWHpvFQzE2BghZ6kUaFtUNGkI KAzP1VzrCGkIZimE515CXhcJi N9GCEnliTbO6IyAYWawIkyKwF 0 u7U9Xt2Mk7CpdldvT4AyuSTcE jDkPaglABo3G0JyUoggxUX+PC 85HODlFV89TDd9TZX3yKftIEq i THHrO0XrdP1vIxCkCIGlCPZdJ yc+PHRhYmxlIHdpZHRoPScxMD AvKzJiyKgxAG0fRc2rTZTxBGD v cTmcePFfQjShq0txELVeKSmqP Z7uqLmuU7BxzMP1YRDdx3j6Nd 13K90gM3DvoVX+SRYieSR6uQU 0 dK2jFfNmHiL4NTwxE703EjOhh QXjBliar6fzl0ikxMr2JwF1KC NxdaCvwKcwOCG9x3XyMp44K13 s IHdpZHRoPSIxNSUiIHZhbGlnb i2qyA6lRp1+MFUibIE4pOP3nJ 8fBpKjStC3ULhmX936EcEehIV v Craxg5cjc0jyfIs4WvGlIQUfv sYibXcaOXR3x1LdIs57D6PfnY cfr4UuWtm0ao22nCSgh6E8aIH 9 X0AzTKPtodnbiNLefGagOB5aP ZFtrjinOJZxvG0hYKPsL2t3Vl PySrY0ANlxL6UduxQ9DRAniUZ g VATyuJJCcC5cgylnm6jjstxmD xVaXXZgEHe3CRu9OWXeyQzfDa YsZNZ0NzT9AVI1kOXteI4fhGb n zddrfK1xFsn+BJB3pXDkiRMVE P0xBcbuvVR+DDDmJEB5tSinDK ntSNPmkC9lVAArH9j7BiOxTeP 1 AQdhO8BrtdF4MTEpmLViPVGww TAZiR3yywwac4ijihtrWvHfQW VjCTt1QLo5ZUDejUfiPfDbBKS 0 VlB7SBL4gPTbhF8djNuuvtzbz G9wOyc+UnfxqYjnDHU3SSs8H2 BbNgy5UFIeoWryZT7bbDBfIUe u Rm7lwJrxxFdrLN5sCTQwemxqd 264FcTim2qkIHEwbWOwFOxmPS V5W05ly3N5RKNfWWWjZJZ9kGK 4 yP1gmWefpbwyiRLreUaaunXvu ExuNLcuCKmsF124ZJZkwDrsFr YwFOh2T4QaMjx0KWIscBioTI8 n qWBgVEkeIz8bsJjinIpsJW9nL TNeqxmny195WuQmh6iyHOYydU FrWXihSZZ5C74cv5E7SELwXCC w MNJ2wYF8rL1jyHhnerbflXJbf KveteTurOlgVRbjORttN731YS XmhEiwQaOfzSp8B1EgZih9AFT z fOuqDG8bjWEuQFqkDf4vsYcae TvtBS0bRDKfgnbxy329EoDoa3 gcWUNkpASrLYwzDIM3I58ez8B 6 PFFsZLWsBGU6hIA3oW7pkBlfo jogbGVmdDsgdmVydGljYWwtYW opW510TWZsxJhfNqQbbNzweyO g NZkbKWe4I6DtPkrphKZ+PC90Y PKzTU53tEOegROum7izzWy6Uh QeJPOnFWU6jTflEMjnq9PdYUJ t W94fwBNsa1J3BOXxlQainZUoB aEgwBR9iT1jDUupbsehf0ywhf loPpugy6ngbd21tB56B01oFOw p RZJsJDJcMWTnCCLvfHksrl6ea G9wIi8+FZGovRM1uKE9bZ6fSV KnPxH4HJzfJ619QuZfoIEeZwl j f0goz3qbyYr1VbS7WIAmyqKif YcjROP4g3JlMs30H54oPUwjVR YtJIMyZMGvGXHroFhlpj9rpP2 w Ii8+WXLnsEA5oEC0fU2tZkJpY iM5TVmhS623SfEroSCsOzsaJ0 1sS2DehJY+ISBdQhm1FGObkZj s BS8ryILvXYbcPs4tJKL2DrBjM eDyAMnuS0JhGUExbdvqvwrtfV M5WCEbWWNfuP69Be0bwUqnXWA w vEKChQ5icqvgl7simunfEaQnG HNpSFe5CEe2GOBhxKbaUeStVW M0JbS9UNV7uHRfdC4utZipbjd g xT4wO4MtLKZpnpxjWd66zY4hX tJwOsR3YDxfYtl+D5hEOCARGX CJB32QZIKjMVSWPO1DGJ20BL3 8 hCIwq3J0fVM5L5FsHDFzxfdcv oxloSN9MGRnQMMncR33vQMlMH whEb5bj6Y8y686TNRmMSEgmN4 7 Hx1aoTqcHPZhrEJSiL3howuid 9kljznzNyJkHOLsZAf4KUx2PE LbmZwoSiWdWRB9XyX6EME7mJR h mH3zoLqevjorqB8jWxf+MTIvM GCnICz3AsvzbPV+MGCxZPA4lD fdHBbwFSYcsU6nFFDmT7d8XzP w AaN0ZNqsH9FfPXRpbtshAe15d Z1fDxXcCyJ1QOeiF1LacuR3BT VeaHXbDZycMOX2K11ff6Z9WVN w AQVwYHK4wCX2sC0cnTavhddaz GVmdDsgdmVydGljYWwtYWxpZ2 21LAWjrTtgTvfyJSvsKAQjUC7 0 KG30nJOel4R7vMN7L0TkPSUfg ualuhxjxRQ5BNJjAECegC75eK IdJIazZs6iw8D1t777HZDhHDV w hQ97Gb6ghZbsQWQopOLVkR8is rynk0hjolfxVrKcJQXoNWl8AL h9MCKcqFikClBwTDF7MmQ6UQU 0 gZTahO8jfSyzvhsbdB0cMcn+T UFMRTwvdGQ+DIXaQTU2gIpoQB nfWHFqqI9mSKIzT5f7PuBvEyJ 1 HFruL9SgQINiysozTx17oH7bJ cQzPlX1IDlvN0ReocV8ZAQqvE InHXxmHDR1L66il2K5WKQuWCU w FBG5vLV8hN1dwBwvesojhWPwh MxmaqLwuMifUJvsJUjmQ009KT XzcJlwCx2DDI69OW58L8XlUyd v dGFibGU+PHRhYmxlIHdpZHRoP ZouLBAkNeFjiXgvXH6qTs6sOZ FtOTKjtXfebNRiHaDce5zdZHZ z PRarAU0rzBceW3MjxLI4MYCtv 2n0At40H37mY7SdlEH+PGNvbC Z2rZA4tM7sBcRkYiD2QLvpB04 9 BuSkxXKtVtfxs7tfr7aykPf9L jVzWASnqlVflQbkXHA5r0DdIg 07W43hKWazVZBhSZLnAFNkCSE h uEbfsn0hiB8wBo1+AYQrpZN2n PV8sT6hRnXzEdP3ONwoC161Ok JciHFfTkqcK45cX1TooTN+PHR y Oum3DXTuaMsuFZ5qwNDhXFdnP q8rNOI4EhRvWlGgKAmdX6WjQO KmuwzwuarrwFV9EFWfRIOxbZ7 7 Ir1cmDkmEo7kBNEwAPH1ZSUvq CCcS8YxyL7dIjBkTYFnCPPkD1 TjoOXiFEgxJ967PLlqNhF2BEM l xbQiW6TgHIZboQxkTbJ7u7U7A w4QlLitrBTuTL6eTcIyCPn8U3 UxXrg1HEPgkNsrJW0xcIJcJCe u Qg7jgNuhqEiyNP1pRZEnpvvqi 256GsVyp5auIBYubVHpTFkaHU V3Z07ok7W4TTAuHHUhGXB1jCE 4 qY1jnIfmjevzeZAgeRpdyrHot MwuTXowRQbzY563ZCWmhAzsOu YCZpj1H6YkEcn3YNGdkQgdRO8 n pUAtNRwaHx5kvLrqsSnmBM6wK FNkxmhvd544GbIkw9ivXPCdlV FiSGaeKFI6L38hj7T5IQGfCJG w REM1eLS5oX0mpIfilxrbsAPsd MqxutAswRrzZUujOShpM850BY FojUocAc2MQav3G9PiBtp7DGZ z dKrpHT9wpALlZIwuVg6qxXocm VyiVS3uPWSymifoh310MiQbj4 lzJPFkgJHfLOijGSW7X65tz6Y 6 DHHaXBEoNPK9uJP8oZ2bxUuvn jogbGVmdDsgdmVydGljYWwtYW ggI192UTXnqRuqLdBqjZIlGwa v dGQ+OT27ua58S1ZdZrjeVou6X GKnEEJ9jKZ5xQ2gYCYcRByfd4 R0yLR2T7SinkZtne4ha5otSCN z ZTo (more content not included)... Normal [facility] PTon 05-09-2023 INR Coag (PPP) [Relative time] 4.35 {INR} High 0.91-1.11 [facility] Comment on above: Performed By: #### [id number] #### [facility] (DEFAULT) [address] [place] [address] PT 39.6 second(s) High 9.7-11.8 [facility] Comment on above: Performed By: #### [id number] #### [facility] (DEFAULT) [address] [place] [address] Provider Orderson 05-09-2023 Provider Orders [id number] F Normal [facility] Coding Summaryon 05-06-2023 Coding Summary HTMLBase 64 CpduuhddFSa4oKt+PGhlYWQ+P T3KYRIfX82uvNZloZ5iO7WCJE lOSywgQVBQTElOSyIgbmFtZT1 kaXNjZXJu IC8+DU9xUYKbBmeuhIOiy8K6l KR2A33efy7zNAbbxJT5IPDgBz Imfukoq1ydlMh1MOgmUkshDyD t KRTniJ02VBH5cX10Nd22eXTth OOkh3fdqSe5GfIbMMWzLKY2uN vuPCuek0FkHXWrI69riMUmq9G 6 SJUxhQxtgXAeKwJvhPM2iI8uP Iomzlmhi3pnpvccLml8pp05rL Lhz5Q1zNI1P3JstrR6QUCoeUJ g WhlvaMZRcN5imzhxz7huvtbdU hNrDFYeIFc8MOh0YXEblFdpZr NzRW76TWS8UJNbhtOxH5HjZNI s mEgyEnJ2c8H9Rb9YU1JMOgsdT 1VNTUFSWTwvdGQ+QB60sz26D4 AaOmslDuz2IEJoVRZ7oBM7tZ6 n RCEyRAujy1G8uJP6R0GrebRgw o7yj6wkLFTuHLkiG71zoRLiq2 H9MVFybDT9GZMivHiuJxNtbE8 3 Oyc+BONdsBxqh5RoOchmb6ptx 5qyiYq5QounMABzhyZqyMcmRH N1h5MdSw8hRONzqGJ7cAV5rO0 i VsXgUzG6LAdeF335NmZgpDRuG rpaW93kJ9LhzEA+DTYuXsp8FO LycHwtVT0uM7MbCHVwoiaqbYO m gVeoNP2nRKDgamfiXORfwZ8pM ZXuK7j7KeSwGqC6AGviI7QbDH HvphixNw27lM5qRsHlLkI0TYf u W2SyeqW4OAYkgUWpJPzoTXH9L 85vw3S9CTIdMLZhAPN4pOW3yA 1hbGlnbjogbGVmdDsgdmVydGl j LMfcRLzsG239HEYikOqrApUnV GluZyBEYXRlOiAgMDIvMTIvMj AyNDwvdGQ+GTLqIBA5bQarTNW n kWCsEJdzFc3wgCbabUqaUK8lH WWerwjfLMZkyK2rPINygDCihV chFA4mISBxruadp568MuFbCNI 0 GCEkvFMfX8GkzS6zEpYwSEUsI SXsN6FqmTAmNEweA831ASjcQc S5USMhfaCnL4CoQEXzfYrgBjE 0 p4M5Mz4Ny5GwmatpG1CgfNIsD fCuFdlmGCe3J9QaRfbliLR+PC 99WDEjAO72GHk1RGX9mAqmMHp i LJHjN5UdoQ9nEqPvQSRtWOCdU yc+PHRhYmxlIHdpZHRoPScxMD SyBvTehPbuBU2wOh9qDWJrMML v mFuqdIAgUjZok6lqKDXiOTbjW Q1eeLyqC6MobDV1WFZcp1d3Tv 98K58tE1VysZQ+ZZWmnXX7gTW 0 sC7lJlWmEeP7QIkzJ186KbEnq WViIqkvl2prr2gyrAd0MrC4XC CkkyPhcIxpXIQ2b6OoAy44O60 s IHdpZHRoPSIxNSUiIHZhbGlnb b4gbC9yWd0+JLHrpBR5wCH9kF 1kJjJjMlR5EYopS466BhGazIH v Xmnsf4tla1iebCs9BcGjAICnw bBrlMjdHDC9a2DgWn18M7UdvE wqs7RcSkg4qt27kGFpj4F5lDG 9 Q9PgECXtxlvviWOtrAugJH4oP TSvkmudEWAquQ7eOONqF6z4Qv TcHlM6WPpgQ5SogrW1NTFiuHF g NNFusDYGbB4nngjar1ciakxqM qUkNQLeLSx7KJu9UJNksSvxLl IpQOI7WrC4SBK8tDVrxP1auNa n jdxolB1rPdq+HYC8yHXeoSVOQ D4zNdwsgUB+BWYdSGE2xLwvCT bjQQYsdL6hNBRmY7j3JrYiOkN 1 OCifQ2YiigJ0OPJtdAFxRWTcu HUHgT9grdisj4atwiitZwHaTR RyRSw9FSa7ZPFihYvqPeHgSTY 0 ZwM8WOJ0iSPyhP4byXzwjnsoh G9wOyc+XwxxeXtcHYU4VUf8R1 ZlNfi0BKKndZedGU7koKGvROn u Jr4crGmrqDpyYY5pVFQiulahr 855NnEnn6cwHQUytPUcSEcuOW O3O31cj0P7HWHdPALoSEJ9uDF 4 hU1jkWvatyqbhUPimDytbyLqj OjjVOvvKNgoI782RFWniKpjOi RtHDp0V8NzIdz3EWKfvYejLP6 n sBSpIAqfGo6nrDxqgYswEQ2iR WNfspazf912EeSaf7qaEQLckP RxOVbaYTG4B87yi8Q1ELBePZL w HHT4tTE3iL9spFdpvuysiYNmv WhgokXmvQolRMlbZDvmU426LS DiyKkjSfOnsLq9O5OvKxr1ZVZ z jHvnSJ6ucLOfTIiyJn1zyTrky NbwSH5jUCAmdlret717GxRpi9 swQYJuoHWaQGkgRNF5O74wg1W 6 PQBkYLWaQKY8pWL5xO2sgNjkg jogbGVmdDsgdmVydGljYWwtYW duG041ZIPtoDjcDwFleMkfqlO g WItmPXo9M8AeMsuldQJ+PC90Y CGwSH95xUPgnNPrg7fvdOm6Kn HhQSStZEG7kOiiGEufd7FeUIK t O92ioRHfm5A2AWFhhTukxGAyY qJcpDS3xM4sGNjnrgzes5tutb ntOsczv7bgly88nQ68Q69zSNz p UKXsXZBgLQDiSIAdjQevkf3gz G9wIi8+MDDkpSP6dLR4iC0yDZ MzTxG7EAciX381OeKioPSmTmz j w6ioa8maiQv7SpB5EDUkguBnt WogCGU8u3BxOq52K64oUZkePQ OgJKVnOCObPGFjpXnpua1sfT5 w Ii8+XMRxtQZ5oMX7gJ9eCcFoT qX4XQzsJ670IxJmgYBhOvklH0 6eO9GpxWY+FOWeOdx5WQVsdQb s RH2khCRjTVijIu3bLPU2RoTiR qCxSHuyC5AbKVDeqlwxceicoL Q3VAZuGFNkzD98Da4uzEfpLMA w eCPDvR6xdpnra1qhlablAuAsK UYtSHg1SZe1FIWrxPvvHdPfFL S3FxN5KOI1aUUsvS0ywSxfpnc g iO0iB8KyYDVdjfsmNt36sO9lI qZpPtB9ICfjGdj+A8kZKPVBIJ JAH30BDMWqALLWNZ7ZDE75KD1 8 fYBna6L2xHM6X7CwBSZwjehek fvifLA9FWIgGHZpxY13gPWpCP lbWt8bt9A5h537PAFrQEMorA9 7 Ii1bzSxwPDNbyHZNwW5foxwxf 7vntzqqNeMqTIClKTs8IHe7JU TawIgnWsQlPZW1IzY2GDJ4cQU h jG8kpImbgkfpcO8sRwf+MTIvM PQfBAp5VkuwfOV+DIOsBYY2aH gcGPsqHDGtbC7fZJPlT1a7PtJ w KnR8EIyzN7LeEALzlczxVm24a I3oFfAiNgL9EGkuK7IikxX9SL GraZGdNPwwEGK1E33bc2O7QDT w PJMnEIQ9cVV6oH1vlDiyjpdfe GVmdDsgdmVydGljYWwtYWxpZ2 61AAJwfKggOboiALxqMJFkTC1 0 FJ55uABvg9M5dES1P1FhVSBaz ffggjdogDK4LKJgNATytZ17yI WjUYnzZu5zy1Z1c635JDPxOCS w aY95So1tdXafECLiaYAHrK3dw ootc0nxffueWdCnIMZhDNo8LO y6ZXEzyEjxMyOaBMH6OcN7JYJ 0 gEMqdZ7zhSikidmrsI1bLdt+T UFMRTwvdGQ+PNLgAGB8nWotOA xvELRqmP7dSMZxV4o6SnFwRuU 1 WVidS9VvHRJzcevoCj12yQ2sB qXqUmR3KLfnM3StmwF0ARSyqX KyIWsjUJL5Y26tc7A5FBIcHNE w BLA6fSX1jU3ngOqtjrysoTUny FsemcWztHdkMSyuCAfpO249VQ ZoyZouMx7QVD63LG98D3OyQvo v dGFibGU+PHRhYmxlIHdpZHRoP ElfSOYsJoIqkWuoXC0rIj0mSV YyNILmfBabkPJpFfGin3xkOMI z PVjkPS7tnQaoS2JfiMT7GLIja 7h9Jc62N74gK7NwuJZ+PGNvbC D8nOR7jN9wEgAgZjW1SGikN14 9 DmOhjMZxWdaeo9gof2ahuGl1Z kTgXERhwwLstPkbAVJ4l9HcLi 90D37eMRjxLARfBVGqYOFqJDW h pRrrnq4ccP0xWw6+CHStdSL4u QC2tC9dVbEtFmZ1SQfvW149Rt BerSZjQufoR10tZ8YvgWP+PHR y Qis0TAHurCoaXQ8aoLXnSBjeF k6wPAQ2RtXwXyHoUXitO3MtHM UpkreekbotzJD5NTDaTCSqxP9 7 Dg2viYdxBe6jNKQrJKX5EADyz ZWjO2KozU7jIzPrMNTqFAQyY8 IcpHUpECabD177ABlsKzP6LSI l beAaW2LkXPUvdDkmQyI9d9Q5O h9VxXvjdXJoVA2nUyWbFTa3M5 PyCae3IBKpkEykHP4hgGShUGa u Ez2mpOcnmNqvRD1dPFSefbvmm 610OqWls9yrGTBnaWQpSOgaTM L7J82jf6J2HAYwAWJnRSR7vYC 4 jU6deKqfwnfaiLLroCoanmMra KchCMnqABxhY149HPGldAwxEa UFBbd3Z4PfXzr5NWYfzBuaZQ7 n lWUvFMnwOa4mrKrauVcjXB0oT RTgxnznz357YlDaz2frBEYxjC PdYChcZFF1M32yn7B6IATiDEN w YXB3uAS7wB5ljOrpxccdnSYqg RizgcSpvBbrBYexQHxnM536XF OyrHtcAc6XThp7S9BiBhe4GAS z zCzlFB1lqRUjQOeyYt3avTqdp DccGO1zFMPkcdonk975ZaKqb5 hwFZYelXDbIJbuXNZ0B99my0U 6 YHXwRZGrUYJ8hVQ5fZ5qgQkeb jogbGVmdDsgdmVydGljYWwtYW zzJ998YVVzyVpjMzRuvAIjIog v dGQ+KD01wc86G3MqHarvZcw3K MNfVOG6jJT0mD3hINWvBPdov5 C2zLU1I3BbamGdiy4tu8nyINJ z ZTo (more content not included)... [facility] PTon 05-02-2023 INR Coag (PPP) [Relative time] 3.37 {INR} High 0.91-1.11 [facility] Comment on above: Order Comment: fax t o Dr. Gan [phone] also Performed By: #### 2 [id number] #### [facility] (DEFAULT) [address] [place] [address] PT 31.4 second(s) High 9.7-11.8 [facility] Comment on above: Order Comment: fax t o Dr. Gan [phone] also Performed By: #### 2 [id number] #### [facility] (DEFAULT) [address] [place] [address] Provider Orderson 05-02-2023 Provider Orders [id number] FF [facility] Coding Summaryon 04-03-2023 Coding Summary HTMLBase 64 UvpnzvpjYEg4hYl+PGhlYWQ+P B7NEILkH01ixIQqeD6xO3URXN lOSywgQVBQTElOSyIgbmFtZT1 kaXNjZXJu IC8+DG7oWTZiDlbeiMKwy5P7v SZ6N71mwo2sCYkinNQ0MSAqZr Rbfowap3ormFj7MMjbXodvKuU t THUjnU02AOL1bR49Sb66kIXju PSqc8pjsQn0CmPiOLIgQVO7zE fiAVorz6CtDNBuC16dnVRbs3Z 6 YGXdxZsdhPMsXtYuuTY0zV2wQ Jkislvpf5agrpexIrs0ju87tV Agh6X4kJD0C3WooyE4ULZgsRC g EpuisBSGkE9kxspoo6qjroqkR nEhHXOjTEz0LLc1JBUprIjzIu ZeSU34AFE4RWBwyhZhS7GnMPR s iDoxOsL3e6N4Wz5WF7MLGuzmF 1VNTUFSWTwvdGQ+SG87qd51P1 JfOeprEdz4DWWpTIO7vIT7rH7 n OXZtTRfyl3A7hRY8B6HclkQht d3lq6pjJLDpELpeT58fqCDja7 I3SCUrgWD4DJZcnOfdJfUtdU0 3 Oyc+GOBfpYvad3EjTycjr5wsy 0urlGd8BjxfVADmojCmmOpsUP H3q9WlGw8nIIHqnFU3eJO9lO2 i ZlWxDuI6DFunE283UqTsdHFjL rudY36vM1WtbKI+EKQqZnd7EH QylCblOM6rV7PyILDgdwcfrYL m dNlgVR0jHOEfiklcWXKkxP3pL IQsK5b1ZkCqYaE7AAbdS9OxCL ZbjpyuOz65aG1yWmWeBqS2TSb u D2VnxaA1ERQdkHKyBOetAAM7W 35ie0C0WKQkQVTgWPC6hLB7nD 1hbGlnbjogbGVmdDsgdmVydGl j XUusMSsiU982UTPcjBzbQnZcW GluZyBEYXRlOiAgMDEvMTAvMj AyNDwvdGQ+UPUuELP8iMtcXDX n lNJbSWhiPg1wbBviiSldOB3jJ EThioqxXKFplG1aDCAwkYFxtH qmPS2aGOUtvsnry524FoIrBTI 0 GDFpgQHtR9JgoC2eHjIiWFKaB JTeH1OlbKSyLNmyS834ZWcnZm X6YSDryoXvA4PhAXPnhFbeWpP 0 v3J0Em3Rr2MaomthX6BqiIFhH iDkQnfmOCn6Y2YvOhyonKA+PC 08BMPyZX00BPm4JYL9yVuoBXh i QFKsC4SpjV3eLkEgCETaHJSxI yc+PHRhYmxlIHdpZHRoPScxMD FiLpTumJbgPM2xBw0bOPQsKIP v cSmfjUJfDfFbj3wtPHXeJVygB Y3lfGabW1XmbRE7CLObu9o1Ti 33I00vN3IxkGD+WPKyoCW7hBK 0 pT0rWjYnJwC0YXgnU375UaNoj KZvMhyee7lmx9bddUg5GhQ2VI IxwvQieCjbAJT9n5FyZu96V53 s IHdpZHRoPSIxNSUiIHZhbGlnb s8whU7iJh5+LCZcpIA7cPZ1yV 6kLgNsEdO9ZUxqA060DsTtiIF v Xqwaq0kps6ntoNf7KjCvBOAgq uLqjXuaRTE6w8RvEi44W0FcaY kld7EcFke0ku83vMAqt4I0yYC 9 Q4XyFRMmmyqheNYewBlaCW1iZ QHlavslTFRwxO0hUUPrT0s4Xj WdKcD8GUsgM8SoiuO8ZMVqcSX g QXHmqEMKfB0xjhlcf4ezewmxG jGhKPIeMCj5IRw3PKBosZhuFw KkSMU7CaQ0MIM0jOLzyR7btYd n tzzrkZ4eZoc+QET7rYIqpTKTL T1yHjxipYA+QXUbUIG7qEzkOD jqIRWnkV5xKIBoL2a0EqNgVdM 1 GBiaM1NgozH4VWQpsIZaFBGes RTPuO8kwghvh9qoehgrMtFcES ToJWn5QLq3POLayNgsRoWmLOQ 0 CjV5PUS9mMOdyY9vrBbxmyvot G9wOyc+OaqlkIiyVAO1QRx3E2 XiGmm2QLFvwGitUY1pqTXrVMw u Ro3geOqazAqfNO4hTJObhenfh 061KbEsk5adCCRrzIXcZBgjNW D2X89ju4Z8HWZiVIKnJEB8cER 4 oU8rjEtystfbtQMtuNwlacYxu RfbDVydGJauD244ULEmfWqhAq LsJJu4A9GlWfr6KUSrwLyqMI3 n hOWlQYceLy3pfCwtpKjgVE0jF LHqxtpaf310RiQdw1peEEIztZ GgIKomPTR1C00eu9O4XHPjCBH w JGN0uFN1eW3uvBgdrfmqdRPki GrrdvBmwNtcOCcxSMggB382CO ZadQfgLtVcrHn2J0CnCdd2PRL z mPqbQR0vbYXsCCrzWu6xnOkaz CmbBK4lNUHfpwkzg067TnUye2 pmDMXwmDBrKRxqLII3D46un3S 6 EQJvTTFsUKE0lPU8eM3lbXpww jogbGVmdDsgdmVydGljYWwtYW vlD150DNSrqZxaOjPlvWgogbK g DEyqUVv3P0LqHwonqMZ+PC90Y WRmGD63lOEjiUFvv7meeRi8Mi FmMEQhUDK0cZslIOtet6AsPOQ t Q54suBYbn2W9TGHmmDqkoFVlD tCohHQ8iV9kAOyjgstbg1dsou ykVyymx5yqlh56lG66B83wROd p XFNwWLCsCGCkHQCovXdwgj4ow G9wIi8+ZBLxxGU4aIR8rX4gVA PgQgS2STtrE361ViSsvUGtKwo j f9sfh2ygqVt8RtP2JQGqccHww TbnOVL9i1AtUg44G65kOSibXW IzRNPfLFDaVZFyfCmioe7ngF9 w Ii8+TIRjvVN2wPY3fX6gHtKlF iV6VJjoW766CkJhfDPaZcvlV4 5cT7UrbNK+QXQsJzi9ADUmqWt s FA2hxZVyAXuxWu7vJWT4YfWvK fPeXNheP2ZjWVEfmwqxvoxqdP M5PSHvBKFpmI21Pv7ahVepGZE w sTSSaO3qxtvic3yekkjvGvWhZ EWmOPi0ZZk1CMZdoKhfLeRuVT H2AnO4EQU9zJJhrD0jkYxefzr g fU3tH8DhZJXllitvVl55wL5hZ qDdSuT2ZOycQkc+C3pABSJJNB LFP21MPEFbMTNLRT1DMQ18EX0 8 pNSev3B9hWD4F4ZnTPXzxpiif erhvEW5QAQpOHOhdZ29sEHiYI fmWd7fw4L4w778YHVtHBBsaZ9 7 Uy3qzVmkWHKilOMWfP9mwnswc 1uexdtnEhVzOBVsLCd6UAn7MY JbkGokGhHyKTN6OrA4GOJ2fGT h xE0coXfayznbyB1cFwr+MTIvM XUyBFs0VcbmoCP+ZMDoEJC2zY nrJZztKBNvjS7tRMOiO8h1XhP w PnM2SAfvS6QzCMApzmrzVw56d V9fPiGuXxU2YHdnB2FwarU1QT QlcYXaUGajSFP6D88hg1P2FYY w SJBlAIV6ePW2yS4gnSnezynzh GVmdDsgdmVydGljYWwtYWxpZ2 63EZSxoZatCxsbAUcfQFKeNU0 0 ZG64rSVff1I3aPK5U1BzJWOtt wlvmbwwbEA3VWHfTKWzcP81dR BqAWycHt0pg8O0e460BKQlPQY w bM50Ee8maYqwJMAeoLAGgM7dr jzoz3gxzoidOoMpPNDkBHf8ZV v4ZDWmnDxwScXiFLX2GyQ9KCV 0 vAWjgT5eyNiydxpjxK2uHpu+T UFMRTwvdGQ+MJWhKJD6cIecKA ksYGWrcV6mQAAtB3y3GtZhLbX 1 PJwmL8LlEQWytepwSw61rO6rQ zTqKjL9NVlqM3TwufQ3OYLulX BuZKwtWIN1O79js1C2YNOjCXE w JHW4bLA6wJ3oyNsspukjwKBpy LlqjdQbxCwiUVmeANyvO967NL DdkDxaZf1RYO30QX39U4FgHor v dGFibGU+PHRhYmxlIHdpZHRoP XfiZJQdXwHotEhdGN6aRt1eHN TfGRTxvRdzzEQzSyVif8cbBQF z CTduLY2grRemN5BhuDI0HSKce 7v9Dd93N69tM3CchIO+PGNvbC E2zON9dB7oNaCrBwE5FLobE15 9 KvRnmBAxTcwbq2jak6rbtSp2E lVwTTAxruHmmGceEQU5y6RaKo 49G33gPGajYYLlRPMjORRtCCX h mFmxwq0sdK4yYi7+TGWaaFV7j RJ5yR3vWbQkVqJ6ZPwnT714Xt EvvXOkTmijQ39qM2RzvUK+PHR y Uix5OEFyeUlvEC2glZQkRRjqM z4xOST5BxEbXhGqPAdeA3RrCP YyufeakfynzGX6PMRaIGQnlF5 7 Jh6gsYkpOh0hPFPcSLF5ZRYpa HZrD2BuqU4sFgRgMXLyNOXkP2 QbpPFyMVnlJ347KDeyErB3BKT l yiNfU3RsRPHswKbaZuV9k2J2I j4PbNnusBOpMW1zKeIhDCt6C0 DwDiu5UISjzCovOP0vfAXeBRh u Tz4ryFvzuEpfBG4uBWXxaqutr 499WoJvw9zpVWAbnRQxMXhzOZ N3C55zx6Q7JHZoWYKuWTV5mOG 4 wB5sqNjrckjoeTBpbUmgtqTqr ElfBFhaGRfsQ379LFBdiOvaLl RVZnk3Z7TdLko7HQKrhYsiEP2 n mMBhIKfuQo3rnBraoGkvHR5xL JFwymlci042TnGxx2raHXMfpV MrIFkaTZT0O82vd9H1YVRzZPI w ZVP3kZB8zO1fjCpdcjcwwIGmz KfsphYxvKpmYKvhFJxrF377MU GpmXklTz6GKom6E2GmBem4MLZ z yBhxNO7mxOOgVWkgWx2qqCsyg UkaKD3qKRLplxelm488OtEgv5 wcWLKkfXAcHPcnVSA2C31fu2Z 6 MOVzRJMmSCV7rYJ1sF9lrKfpx jogbGVmdDsgdmVydGljYWwtYW zoH501WKLuzOscEkPiyXWdOqg v dGQ+SX82xj25K1MlQihcBlr0D AYvIUU1kWH1oA6nKJJrDAfdo3 Y1eTX8Y3MenaEsto7cp9ddVUZ z ZTo (more content not included)... [facility] PTon 03-28-2023 INR Coag (PPP) [Relative time] 1.93 {INR} High 0.91-1.11 [facility] Comment on above: Performed By: #### 2 [id number] #### [facility] (DEFAULT) [address] [place] [address] PT 18.9 second(s) High 9.7-11.8 [facility] Comment on above: Performed By: #### 2 [id number] #### [facility] (DEFAULT) [address] [place] [address] Provider Orderson 03-28-2023 Provider Orders [id number] F [facility] Coding Summaryon 03-21-2023 Coding Summary HTMLBase 64 IpoocwtdECd6qIy+PGhlYWQ+P I2POFJeG09qyONptQ6pK2BHDT lOSywgQVBQTElOSyIgbmFtZT1 kaXNjZXJu IC8+PY7gTVXlTbmbcORwx1H0j BZ2C72typ5rXUkivAO3HMBaMl Fgbgkyi4uzoNm3RInzAbcrExA t QIMfzU69OSV9yH24Xf70cIDlm PVgs3wctTd2JcWwBPSeUMT0rH nrBNudv8PmEBKtC32ilGIvc0R 6 KLPwjEmukXAlIsIamFC7rC6sA Ecebdkfm1ezpzbdFgn0ga40hU Det1L5hIP5D7EhnnV2NVFogLK g GowvrWJSyN3yomzka1aatrlzD oCpECUqDDh5ZMl9QKOlhTjzAm BoUD48WFK6AZXhirIpG3TnVYU s yBblUnV5z1T8Su3KC1QJTchwN 1VNTUFSWTwvdGQ+YU96tc21T5 QrJtiwIpi1FKEnDGM3sIK1bH4 n NHAgRZebu8A9tNQ1N0UeieVbk w3zj3swAXLnFMxtM44kmKZot3 W0HZHkkJY7MGLypIfzQcYgwI0 3 Oyc+WCLdkLjtj8XxQwscp0mxe 5svjEh6CpkaURMaerNbdEohWS R1m3PkQt7mJGGbsQC0nFJ1iE1 i ZqMdRtV3ILtwA187HcXvpDRpT zdrV25qT2UjiDT+JJQvAjp0ZW QvaHsaWT4oA3OpFFGzexotlHS m iTvoFW1iTYXpgromNVHucX2uS CPuC3i6IcOkHsM4TWoyW3LgLE JqpuffYd08eW6uRgTrDcW0JKa u Y9DdbiL6XZNwrBBfCTrgHTN5G 88jt3K2YEVeSLBlAKA9zUK4nI 1hbGlnbjogbGVmdDsgdmVydGl j DWwyBMxdN990EUFhuEwvNbJdR GluZyBEYXRlOiAgMTIvMjgvMj AyMzwvdGQ+TAFnTVL3gSenHPV n wZVyLGqqEj0reEtznApgCE9qB GGyetzwXDVneX2jFANbkJItzS mcGN4aCVAetirsj631FuXrGIZ 0 BWMyvKHoQ0PmsU9gHyFwYLEgX GEoS2MhyGMsGLzuL209FVakKw N2ODXjodKtF0ObFPMvlYmeSjP 0 s0V8Xi3Qx9IvedhzG4JpsYUbK xYqHqkaGVr6K4CeIlzstPY+PC 99NZSjHG80CQv6LFA6oBmhSUc i LYCrK7WgjM9xIgXzKPFfMCDaW yc+PHRhYmxlIHdpZHRoPScxMD XiIlKisAumAX4jRu0vFFPfRHK v bWhdsWGcIrNzo1uxXHJuLZomV I0xnYzwM6YjhRW4UUYyd7t2Ph 10H06rR5OmeKR+SZXtsOX5zOG 0 kL4dXbXrOaG4OEgfW860KaAww DNzNxxql6lja6pflPi7OmL4PC EfscRlaCrmBWK1h2ReXw39R47 s IHdpZHRoPSIxNSUiIHZhbGlnb x4iwN8qFi1+UMDqwCW7tDW6mR 0fFyTzYsL1BCgjU129WlItmZO v Kvaes1kvn6oanMs1IwRiDHQol uBrvXowKMM7k9UaHj63V7KjtI esn8VyYub2ua87lXQsf5M7bLU 9 V6OfCNWcnnorpQMtwArxLN2qF GYmpeebWTJrqH9wHCVeR5u4Vq GfBwI9HHywN4VtoxA9ALHezDF g EGAteYQFkK0tpvhwq8razclyN sZwXEOhWJq7VDk6LBSuxPqqJy BuDSH8FiB1HUP0tLFwwO7sjWx n zxxcfL5zMxw+HFO2tWJdxETDZ W1iKybphEZ+TVLiNMJ6vUmgWA ssGCVjlI3uOSNzB5n3QjHnWfG 1 PEswU2DyviO1KFFtjTNnOVOhz ZUGmY0vdvtaq8vnqgpjVjMlMA ZeAZu8TXr8MPDzxOqcZxAiCXL 0 FyO1YKM4wOHzdR7naAqpxjmqu G9wOyc+BixifEilUJE5EOm6K1 SjSyh3ZPFwbGnuYK8aoPExPHa u Hn0kvFqkuFuyVS1nMHVpcccgs 512SoCke6oiSJCucGTsCKeuWD A5R50oc7H5RURaLJXeDIM7gEH 4 zO7wwFndyyfjwGOfoOjtsfUmc AmfTVmqTSomH186QCSabXwuOl PvYOj1B5PfKgz4YNLkpBrySC5 n aWLyPLdhGb7hxMxzxFvdCO3vC BMjnncxw161SxBpa4siVPPjoS NjBMqyQGT8V50qe4A3VVRwONI w BZV5pZT2kB9kaXshvxdxyMXsd AyinfWirYjgZNzvFMvrY321PU RxeEpuLiDpgUh6L9VyLeu7QBV z aApkPL1zwTIlBSifXp2vzPhxl DqjTD9dFHOfjmslm588WfKqr6 hgAAGvdDOqPMhvKKC3J85bz5A 6 EIHbDNAyIZW4yTF0yA4lzOqab jogbGVmdDsgdmVydGljYWwtYW jnL528OLCswRoiEyFhgMxpveY g ETzbSJi5H2JlKawttWM+PC90Y HXfCQ73hVQhgHEzk4ytnOf6Ew MzOFGlYBK2oOczAVbzw0MmXTD t P23hjLImf8Q3SLWraFrzmBTkF dVrbLQ3tG7gHFyrbntmx9ywuk ryFswrp7jvuu19cS15Y45sAGo p XCPjNJOeFSGtCFYwsVbbmz4mu G9wIi8+IOSsvCF0sSG9kV0yUB PmCqY4GCwpY963NvAfvGLmVlc j q8kau1jwyRy9GsM2MTVecnZji EdzKGH2a2AyZy53Z27cPJhvRJ ZzOROxBJAnIYOnhQnrxu6slI3 w Ii8+HFLqnOD7sLF3bN7nUoAvF hW8MEqrM248BrWtuLPdBuybL4 5iJ9HuqBJ+ODZiYmg6DERdvWf s JU6nmVRcPAijDh5oWAK7AcRiR tIyUTjrB2DjNIZmbdndqmtpnJ O3BSSsACOvnS16Uk7asJyxSUF w fTOBcQ8eegzuu7zvfnmoPvUfG HGqMBl2WQw9FUSnpSasBfAjQI M8QuH0DPN7iVLujD6zyMmgsdy g xV4yP9QyCGXxqaeeOw02jU3qF pJoFtT4UXrtFji+H0rUKZNASJ TIJ39JRTFtLNOCSJ9OYD32MA5 8 fMPpp2J3kIQ0G6DtYLZbgillb mepnBK8BXGmECUyjE21uEOuES dwXm5qy6C1v374UDSmTDEpnX0 7 Xg5pyCynHPCxtYGKmA6ryvtis 6ioslkvQyWmUROmUIf9POu7RS NqzLdmOmBlDGB4UjG7IQJ7iZN h aK3djUiyaarswW4tYdn+MTIvM SVcUPj5JmkdnLY+FUUhXSQ8iF ohMQnzMJMheE9rDTOaM5b2BpZ w XlX4MKbvI9LcEWCnbvobCi81j R1rYbSaByO4GPcrR3KzivQ8OP TgsMGrJMkiTFS7T48pi0N5MJE w FJKsRPN1qKX0jE2eqRjlqdoqz GVmdDsgdmVydGljYWwtYWxpZ2 83VOKfdFdbEhekVMtzXIOlRA1 0 VD17gXAuo5C9pXG8G2XmLGXqu ybicemlmGS1KMXmBTUqqC62tP GvUXnwVs0no5R6y625DANmYMP w nJ85Mr3ycWwwKQEbmBIZcD8tu zdxe0ccabeeIvPvNNSdRLr9CI x5YUIlpPbeVbRcRWX3YgF1PYA 0 fPZvjW6uaFhwdrdoeI8lXbj+T UFMRTwvdGQ+UOMpMSO8hQeaQI xcARKvkC2nZEAtR2z5XoIwJbE 1 LEgcU4ZcYGPrphysRr15yZ6aQ yLfDnN7EPqiH8SghwG8HGDmqB WvEDfpWVU3N26ze4R8KBJbRIW w OCD9fHH4nZ4ufPpxlxxajWLal QuydkGktRkvTRjzHScmN162XE FnzIwoCo2PHW29LE10P9SeJnk v dGFibGU+PHRhYmxlIHdpZHRoP KywFYRfLjEpyMlaYC4uNx1nYG MeITGtaRswuNUyIvJha5nuBBM z WGoeVQ8lrPukI0RwyNE6DCYde 6b7Hs20F31lF0XytCT+PGNvbC F3vGA2aN0kAsSjPiX7NFrhX00 9 MvXpbKVjOfbtw5vbk7yucKi5J fOrBATralSaeVdpCJB2o2UqIn 47K61dGEqbOORnZYOsOFGpRJX h hYulxx6hkI8lUb6+YTQxwOU0g ZM3uA0nNhQlRcN8MUnkY291Ad SqfDOaPwquB33gC9RlfAO+PHR y Bjp1IMKhjChyMC0niJRrGDoqV g6yNDU9NoNvZsUrIBxoO3ZxTD XnfbckrlufaMK1TUJpXFSywR9 7 Qz3bbHsrHr7bGGBvSWH3DHXza UNqE6YubT6wDdQeXLZmUNZoW6 VmsDDwGXmrY723XXgyAwA3IYE l unOpZ7DuLPUpeAkkRxD1w2B8B v7CfIdiaXKbMH1qDsMcWHa5I2 WiXvw1XKVkvWkmRN3wkXWdXZl u Vh8bdHnqlUgdZL5sOJRozfzwu 564NfVbc9ufIPPhuRCiIGtpLY K0C82to4C9BKApFQUaJZJ9nIM 4 oS7ayNizbmqmjBZlxIkbjuPxp AtsODoxHFihT717IDVkrBheYz FIDte1Q4GzNyj7MCYqkQcdYO1 n pIWuHWzaIw9rfYgyrLcsPZ0vJ FSoslikk460HfYfj4bpMLIzjI SmRUydLLZ1R46mc5N7MBWzUGW w VKC4xER3eE4rdFjijvvluICkl OpqosEfrKifSUvtJLghL968KB EtkLuuBm4VKkq0G0WdCey7ECW z dEylOG1ycAHyIRlrSg5ctBtia OtfKJ1vARTahzvjn565KxKrt4 bwUKKhkOXaSHwaCRU0O60rk4T 6 QGBuHIZlDZW2rTO9sH4dvPcwp jogbGVmdDsgdmVydGljYWwtYW odK284WMUekNbdYwVatPIzFgf v dGQ+YG80qx75H5OqDwdqAsy7P CEqWKU9bMJ3fV8mPKJrWAwrl3 U5mIW7X9YxqdUnbx2nj5hxTXZ z ZTo (more content not included)... Normal [facility] PTon 03-07-2023 INR Coag (PPP) [Relative time] 1.96 {INR} High 0.91-1.11 [facility] Comment on above: Performed By: #### 2 [id number] #### [facility] (DEFAULT) [address] [place] [id number] PT 19.2 second(s) High 9.7-11.8 [facility] Comment on above: Performed By: #### 2 [id number] #### [facility] (DEFAULT) [address] [place] [id number] Provider Orderson 03-07-2023 Provider Orders [id number] IFF [facility] Coding Summaryon 02-25-2023 Coding Summary HTMLBase 64 CdlhpnvbRLr6lQe+PGhlYWQ+P M6UKQEwK17cgISstX9hU7NIZL lOSywgQVBQTElOSyIgbmFtZT1 kaXNjZXJu IC8+GD3eOXOjTgnceQTfo5I2m QZ8C44omj0zQGytoUO0JJUlLa Kcxnwde4ljbRr1FMwlIyccJzP t FEBhtF09BCO2fN16Wp14eRGbm OFbr6uwxLk6WmXaXTKvOAM1gT qmNZtsy6ZaPQQtX15zuBRla0Y 6 DLGgjXjjwAScCwTtcXX7wE8nJ Upwiuaoi1tjmbhcUou1lw22iF Zbh5P2iNZ7W0DyinB0JVFwiWO g FraxuQABrC8eacbue8tphnbnY pAmWYXxAYl8DJv6QWSvtJfiTf RxCA07CBL5VIRrksIiY8MlORJ s bLpdJtT9f8G2Pt9OI2UHYtteT 1VNTUFSWTwvdGQ+UA92uy41V1 YnKpcgFvs4JIDyNQJ3aDL1zQ7 n SUWnIVshr2L5sXT0S4ZpicYqw j5yy3vcEHGuRYgaE49mdWDdo5 K2TQKnoAY0DCYycZqbJjJglR4 3 Oyc+ZMOllIgvz8NfQhayo3mdt 3jpbOc1VcetSSQttnBlqYnzUI R5y2CmLd3ySBTjfGY0bRX1iN8 i TzTbVnQ3QGkhM796HqZifJVyD hqgE13nH5XmqCF+UBQoFzh3DZ LwqQnlOE0hI6DpKHKnwxjnlBJ m kAujPK3zVBDqvhztDSRmyF9zJ RXmZ7a6AxCvLuT7XPhjK3SeCX LayuspOs14tY4rUfIbPuD9EPr u H6JaabJ4AIFqhAUwRWccPES6T 75zu0H7KBVoUMQdAVS7yLI9aT 1hbGlnbjogbGVmdDsgdmVydGl j DExhEVrdC566EKXbjSbrXcGnX GluZyBEYXRlOiAgMTIvMDQvMj AyMzwvdGQ+YYSwRGZ2nMwuYTE n uHBrJIaiVv4neIlicZtdRF6pS CWecdbzMUEpaD5hJAYzhCKtpF drXZ6zICYzwrbcw069CsHjMZK 0 LOVtdTBzU5BkeV5rJvPlRHGsM OQgL2ZpvIWdLRsgI783HIvrCd I8AWXjidMbH9SpRYItkJyxHrR 0 q5U6Ev2Hg1OfsrjnB9WbcGKvQ kRdBafiKWx6M9NnRvivuTZ+PC 98XGJcGO69FKk1JVQ3lTwmUTp i TUCmL3ExeQ7zGsAcQUJpHYFrV yc+PHRhYmxlIHdpZHRoPScxMD BfBqImcHdyYE8gUt5mLOHgXNA v qKytjESkGrMnr2uhJSTrSQmwO X9yyCabZ6RxqWY9XSXsf2v9Vz 93R88bW8GydYL+TOVkhML2qBF 0 vB0mWbRlApN2VQwmF783HcLss QAjFwrdi4pyy1lpmYk9UlT2EJ PzfxOboJozMMR6l0GyJp55A34 s IHdpZHRoPSIxNSUiIHZhbGlnb s3wlH8fSr1+GHXuuAD7sPA1uV 4pLxOwDzX2RFwxB931FkRxmLD v Yrhtr1xfo8uyfOb3FvDtSEGoy sFjdGvsKCW1l7ObOz96F6IduA vyb1DfVhs4kr16dAAsf2K7hUS 9 R6XrEZAqkirlxGUkwIkrBA8kA TBkgbzqBDWjpO7gTMMoT9q9Mq DdEnF7ADvfW7CssyE1KGFtbBK g IVAvcXQNtT5yiabus6eobtxuZ qTrQZJhXEe5KZl4QJZgiXmuGj XdQFW3WyG6OYH6eFOtaE9sqTb n xdkfhY8bFmv+ZXT6pDLsjLPBF F0eFnhhnOP+NFQaIMZ6qIlbAB szFMWulQ9nJZZuQ1d9OaLvCfQ 1 YXplA2KxorY4MOEauBCtZZHly OVBhA1emfzzd9dqzdaiCaJsCQ OwBZa2RFx4WFBihMgkRnIfZRA 0 ItJ1FDV3rKFzuE0hcJmrayyyd G9wOyc+OvsnzJufWYN7IOy0C3 EoZxs2KYYkvEmfIO7tnONmVEb u Xe4yeSuqtZbdUZ5bSWMxzzoir 864FgYcj2qcAPJccFVtLAjwVM R9A88at0U9VFGkJNIeNLE6fWO 4 qN6haNhqdhszpUQdsAwaqfXpn LhyDIlqVBsqN488UWAxpIokOs GdVZi5A3HtTzo8REHkvLciGC4 n kTSeEYjfQr7ecZnuaBnzWP5hT CRyhzmdn489WbBtw6ouIYYcyX BwAVawIQZ6R45az5H1VUJgTRC w DNE1oAD3yH0mpMufiesfpBIol UxxgxWziNkjXAahSCulT633VC KwkZpxChKemTm1Q1GwEqf4FIO z cFrvGT1bpOYcYNwpLo6fuKaek LqzKM8zBMCqmjgbs277UxPml8 jpLAYhpQCgZMssFKO1O86nm6I 6 VXBiXAXjXRC1jML8oI8lhWtzo jogbGVmdDsgdmVydGljYWwtYW tbC060CBMutJiqPlPuyKpehsK g MFudWVy9C2AnGxbujGL+PC90Y OJhLD39pUKruWHac8twoDx7Pr MbHNDyLEM7tSqpVZdfm6BwMFN t I52vvUInn4X1WJUwaVopuBCyH eSzoTH0mV8nEGtcmwgzr0lkpa vfJibcy6zvfz94yX29T95tFQl p UFXoXYQuDOOsWTUqfMqbox9vx G9wIi8+BSQgkJD2bDX4pY4xBT DjEnP3IJnwA104YlSnoIHwZxf j c2rdt6fxyVe4IzM8MIKoqaQag JapNXG9i7SmAp70O08yOQhfQS GvKDXjXCPuOBOdiYmhva2zxR6 w Ii8+TLHeoCH1hZR2tK6bVxQyN rO6ROebU238WzRbhDFnVkhqI5 3mZ9WaaVR+RCYaCvu2OZJmiMe s HD8dsLKcZIhpOz5mHVY7JePvQ gKdKKtdI3JnFLEshxomvhopwD C4JGUnGWUkyS64Vg3mqVahGHT w uJSTeP2fpgbus5buzymdUjVuZ QVyFIv7KZz7NVOtnDhkVsXrJY F2FhL4IAB1fWRwbW0daImnqbg g kM2hX0MhGYQtnnmvYh55bQ0vT eRcQaY9QBjsDjt+J0eVHQXRZK JFX13TRHUfIYKDLY5YCW95MV3 8 yCNtq3G8eKF8L1ArQQMttcklo oqhsVK6TEGsIPSvgQ61vMQnPW mkZn9tb6Q1k241QDMkHDVqjD8 7 Fb2naGztJQXmjHMWdL3pturay 8wsovcxVsElYCLzHTh8YQf4AK YnbEeeZpOiDSO2VoA8AZP2tYI h bB5jzMgqflxklO3jBgr+MTIvM VJbEIt2GmifnBM+OUUuPIW2jS sxZPivMWCvoM9wRKVaM5x1QzM w OsD2SRymO2EqTGByavosHh61f J7bKjOcKoL8TDknJ1UilmG4LV FdxZZoURkhGDR3R23pz6D5MRO w SLGwWLY0yVV0fT5ltFipadlzg GVmdDsgdmVydGljYWwtYWxpZ2 50YMObkHkjTtfcPOwrDFDpXC1 0 VE52fGSkm8U0qXA6V1WaAOPbq vlqyduizOV3JWAdKYGwpA02zD CeSYicQj3fy5X8i296HSKkJGF w oB17Tg3ogZxxYAWzzCYTzG8sk edic3pcdyhgOgAoOPMxNAu5OA u1RBWduPxiTxZqQVY2LiR4IPY 0 rLVhvJ7mkHoskqzspP0lJvy+T UFMRTwvdGQ+ZVPuDUV1eMlnFB gpJUXgdL2sZYUoV3k1TkFoAiY 1 OPkwF9AkUMBiecygDi47uA8kO qEaOqP8HQhbF2RuulF3CRFkwX UbINtbPHJ8U92jx7A0GFVuJKY w HDF5bEX7cG3kpZuuanlqbPStn VrncrQfeDujLWqlAExvC886QM IzkNcsCq6DZP63SV86A2YkTyu v dGFibGU+PHRhYmxlIHdpZHRoP ThqXSZmAsXvgTcwPQ7yHk5aDD GvTEMdfEjawPVeYxQmh5sgTBZ z QDmlVM3zkRkbA6RnoBQ6AUXsj 2a2Qd81R86tW7OnfFO+PGNvbC C6rNT6gM2tCtDhLxV9WQxmU28 9 RkJanDOrBccsc1xta9wcwPg7Z zWwYYTpllKxuGiiIFQ3a7HjTy 58O13pSDukKIJcWQOxORGnGIY h nJcwvw9waD5uAp8+AFLklDY9n XX7iI2oGiCwSyU6JWuzB390Rx MsuVJpQdtaO89zX5UubFG+PHR y Mpl9KPGlaLhgSQ2tmVQtYJlyV g9kNZJ0GlGeIrQmHKdpD5OoOA TjjxgrsmhkcGU5UQTqLPWyxQ8 7 Qr6qcBvkJj4hMOPsCVC0QYVgp YOcV6PxyG1eCwDvUBBbLLQsK3 MgkXKeSOrhJ940VQnuKlG2MIA l gsLkI7ZfDOJhmCrsQcF0b0T0F x6XlLxhfQUwJE5vJkZhRXv5K7 VyQld5ZVCeaKzfZJ1crDRlUGi u Dc0vsAyxfFlsTD4pSOFpbszfm 026XlOez5qlQLNsjZYzQPcrDI O4M21kb1U3OMPaMOGlIAB8eME 4 wM8veChmkrkoePRwzIecfaGcb UtjYDpfKJksP498IFXaiTizRi RLWno2V8AiZjx4VGFyyGepFN0 n oZRqBDqaNs0diLhrkNjxBW7yZ MNioumxu891XwQul8kvFCUpjW LrEBscDHO8R74mw8Y5WQPxEGI w JSO0gMY4dK5hjBdkqdxcrUJbu AfxgjPbqHovOKogIVnvZ286NJ JxsZzdVr5MWxl1B3SvUrv1HRO z tCegRS8xtUAmPXceTq5adUxlz VcvFJ7eUVWejllpe342AsBqi4 aqDZHreLSxXGtxWUE0E53ma2T 6 YKBkLSGgJGG9eFS8iM1jiSedy jogbGVmdDsgdmVydGljYWwtYW taX689KGEgzJbbUlEvpLBrPsl v dGQ+NF45xc23J2RjEmifHfs7W INpUMX1iPF6kU9uEGLpKAggv9 W7yXY6Q3AeufYoui9wl5vfRWE z ZTo (more content not included)... [facility] PTon 02-21-2023 INR Coag (PPP) [Relative time] 3.31 {INR} High 0.91-1.11 [facility] Comment on above: Performed By: #### 2 [id number] #### [facility] (DEFAULT) [address] [place] [address] PT 30.9 second(s) High 9.7-11.8 [facility] Comment on above: Performed By: #### 2 [id number] #### [facility] (DEFAULT) [address] [place] [address] Provider Orderson 02-21-2023 Provider Orders [id number] FF [facility] PTon 12-20-2022 INR Coag (PPP) [Relative time] 3.99 {INR} High 0.91-1.11 [facility] Comment on above: Performed By: #### 2 [id number] #### [facility] (DEFAULT) [address] [place] [address] PT 40.5 second(s) High 9.7-11.8 [facility] Comment on above: Performed By: #### 2 [id number] #### [facility] (DEFAULT) [address] [place] [address] Coding Summaryon 12-10-2022 Coding Summary HTMLBase 64 FwiclultILt9eKp+PGhlYWQ+P J6FMLEoF62roHWxeG3yW8JAQF lOSywgQVBQTElOSyIgbmFtZT1 kaXNjZXJu IC8+BA5iZUEkRtofzQAwi9X4l LV7G46azc9eZBqnkTB4VVBaLp Iigkyuc8msxXk6KZknRwbsXnH t QYCbiQ56MXP3sT94So49uHVxf LKpx0lraEe1IzGdXMAkJTI0uL spPMpbw7RiMLStL47wuWExm1L 6 IGYrxIjgbDDxUjXshMH3hJ9xQ Hypxgzjb8ouzdalPga6bh07vG Rkd5M5kYX5Q8OmhoG4JSCszOG g GebdgYHVmO0wgxija1fnstfgV vKzMKLnUIh7AXf6EXMgfFtzTd GkWD94UYX9BVCanqXbB9KuVQE s jHmnCmT2l1E5Bu6KA2JAGjeyT 1VNTUFSWTwvdGQ+ZM73tf56N2 NaOyadHaw2NJQcVNI4aTU8qY2 n LZNrNDwyf3O4bXW3F3RrugWpk y7ft6wgSJQrPYvlT36uhXMvl3 D5WBIohKI6EAFltMfjObJaxU6 3 Oyc+DXGnnJqdp7IjUbmjj7uuv 0zuvUb0PwpaEAEszoXukOqzML U8a1ZgNm3fHBJfrEG8vIL4uP3 i JxNfQmB6YZtmT866AmZjnZJaP chiS43gC0WdyXC+KVOkEfz5QP CqpJnfMG8zG4QbDZJqhvbmjHZ m nLpvHI3gAPZpwwkjDOIbgZ1dJ RSpQ5h3JmKhDxG6YGmmU8XbAQ RggrxtZn19eJ2cGnNeIdK4LAt u O9NdizC0LGZsyYEzLQfgHAP3H 86dg5N7JPGzFUCwQGT5yGV0tZ 1hbGlnbjogbGVmdDsgdmVydGl j FCbsGOqmB868PYOdcEjnHfCcK GluZyBEYXRlOiAgMDkvMTgvMj AyMzwvdGQ+NITqGDJ4kQunWUS n sKHbJGgkIw7iyEktzIybZT3rD KTrveuuNMPzyF4jSONugUAzcZ glOC3gVCOwyszda142UaTyGSR 0 KFOexAZyS2HymG5xKuWvFWYcT YWfS1OrcFMcISjuS056XJbnLj H9JHQzknZbY3PaDGMqnQfgHfO 0 v2Q0Vf1Py1RazdswF7SvpRJjQ qMnGqlqNTf5F4ApWcnqnLG+PC 05AKIwAI42LAl4NDM3hJokRTg i XJQkJ6AfdD3pFaSgOGCjZGDlV yc+PHRhYmxlIHdpZHRoPScxMD CtLoCzyGdmHF1wZr8uJJLfHOD v iZavmSGiFkYvj2hnQQIoRZxwI F0qsDtiX7TabWD2HLSwp6v3Xh 36P17jE8GljJA+PWDgfCJ3eIK 0 sP0gCpYnHfV1BBbgQ573PeSig YDbFlijy5kcq1goeUn9DkD6QL IkvgSadVkaQJM5m8ThRn80A54 s IHdpZHRoPSIxNSUiIHZhbGlnb s5bhG3gSh2+XOLhjSY4xCR8wL 9gZfPfYuB8GZqjG346FuDhwVY v Isniz7xtj0cegFg8RwWhDITcc uWnoRgxOWF7y5KcKd73R6IxtI fva7LwRpu0vu92fHHkg5K1lWH 9 N7QfZHGgkipbeLFmyPycHU5hB ALoadgjGLLjiR2zSRTuP0g7Kq BfAgD7BPdoG0YzbeF9GEXrtEO g BUWayITYyB3pkthlp4vvkkygI iLiRLVzAAg5VEv2UJKzbMgcBa PdOWI1PsL1HWC7wAXzmL0akLe n bxiegX6sQlt+JKI3yPVxrJJUP H1cHrnrwRJ+OZIoEJC3jMrlCD owNNLziN1vDMAlX7n9TgHzPzP 1 SLyiZ0CqwfM7WFCrpKPzLYJzx TFPlR2ersfpt4rjuobxEqFiNN UnQKy6EKx5MEOfmQxrIbFdUEN 0 XzE1GJT3qWTzfF1zfJeiwbcvg G9wOyc+NurzmPumKVK4VOx7U2 FfKbk2AMYyoWnaAV4fwBAnNCt u Tu3yoYvkjWsmPW6jYXSuulbvu 464KnZos2adWOJzcNIyJAnhHG K3W95ef8D3WZAmREFgMWD5eJA 4 pK2gqItxcmvqcXQbwKsyptKos HatJNoxGVuwG129PRZaqPogCs TpZZs4Z7TxQwn6CCOnlIhaDJ9 n dNQsFZuhGg9chFppePqnQJ6eU VBgcyrqq139LhYzr9ocTITpxN PaASsmTBM5Y68cf3F4WGUvMYX w FLN3sOM5qN8kjLzkbcqzzDTgl MfbguDygLlsUZqgRRnqV276FE TphQxjToLpfXn8D1GzJrd8SWZ z bJfvWI8htXXcINesIm6tzRrvp TfzHL9kRYJwpyacg451JdKaz2 whPQZwoMNoJXbiVIV7R88wy7P 6 ZOLxBJZqGEW1tVN3kI3zgKcwf jogbGVmdDsgdmVydGljYWwtYW ffH059SAAhuEqeWdGmcJfuasC g AFoqLSa9D9MlWbbqwSO+PC90Y PMoQP30aNBamDXpm7iopFc8Be MbDMNlGGW4wEwiEGqnx8KiIIS t S80ehNFmg0Z6QZVufOrlcFLsM cDwpSH8oA8pMIseropcq4azce goOksyp0hods66lJ20U85oMXe p EGPgBVIfMDSyNDAweOuoxr4gh G9wIi8+PCSoiVP8uGT6cE2jBJ TeFaV8FYnlJ787HxSbeFMeSnz j d7heq3tynWi0EvG4DLAexzQtp PrwPRS9h8OcOf54B11oQNfcQX FkZBQhWDRbJMLkoKpydy0xwP6 w Ii8+GDMbkSF0eOR4kT5gQqNiX eT2NTzeA162ZzIaxPQeZsfrS0 4wM4UxxBO+QZJyFvb1JZMwdCd s RP0ddJDoTLebIf1vQZP1QqMzA eXwVUtxJ3WqTHVyublbeohqmO X3QIEoXJTtqK92Vk8paYyqDHB w yAWTrY2clswcd5blvpfnFgTbO RLpLUw7GRr0GJJvrLplUiFqBE T1SpA3HRZ7vBDphV7fmXeagwm g pO8wS2TyQAUsmdaiXe08nW0tP oWzFtC2UPkwIvg+D9eWOONBTC XBQ62QDAXcHWQQUJ7XLU45OA8 8 qWSgo5C6sLF8L3BhQKNvgzujv azudVD0KEKcGURbdG67zOIuHB lvXn5sd3Y5d747EROvSIVaiB7 7 Cx8vgXabWGSmjQHHlM0htphrp 5cjtkdfLhSwHWPsTPs1SCc3DV AmhJzeWsNkBOT6CrN7SUR1gDY h zY0dvDletxlxcU0cFrb+MTIvM HCbOEv3PoogqLE+VWKqGFI3uA gkMLccDQYhlC2eVPBfG5g5RiY w RgE1SXlpZ8QnTFAcwjywUz46g Z8vEiShFmE5KKarU6InmwG5YH XfkUTqKWcyYTX7E33wq3F9NGD w DXCrJPP9sIB3rQ9ceSvlamvvk GVmdDsgdmVydGljYWwtYWxpZ2 48RFRqkQxtRdxyXVqiMDGiNL0 0 NH24wMJkz1I2bGQ0P7HtXFQhm iammibatVS5JQOdTUHtfT85vG JoNLmiLu5xt1B1v637PLYaSZP w lQ18Kl0hwRxoCTGhdEBJlL8ge adcb5escinzWkUxNQZhVOg3KP o8VDNknUkkRiQnGDD7DaG9IVH 0 lPYffP8ziJcwmdkobP8pZsg+T UFMRTwvdGQ+SLTtAYK5rWziSE hqTDVlfG6qYLHlF8y4NdAzPrP 1 YAdqC7DvTYCqmdrqWy49uY6yQ mEgZhD5HOibO1EyozG2GFIdrP HyQYsvLYZ3G47ol7N9IOZbYHA w ENZ2dUY0eD7xfTdtcunaxDXon XgelrHwvZcdTLxeZTykU795IG JoxBwlQa0MFI57YY39K6GyChr v dGFibGU+PHRhYmxlIHdpZHRoP RxrGPEoVzOmxCqxRL8fVt2nIG AvCBFrsPnheQSeAcHdm2vcLYT z MDzsGY2fwFzbT4UdnSX3FDDns 8x9Mm63P71fQ0IrtVU+PGNvbC Y0pED7pP7wStRnTaO3XEsoG89 9 GtGshTOhGijnx4dkd6vyjNp5H dUpBVXeruVpwCpuBYX9n1DjSw 35W81sCEyfXJAoPUIjAVQnRRB h aXdogh6ohL6pSh6+MQNtwRH7h RC0nR8iYmPwKuH1UBubC335Fj WvhLReHmhzG58rD8BcePQ+PHR y Nig7BBNdyIbmZP1sgHAxAIyjD t5aCNN0HjAbGnQyPPcjC1YvJV MmkxfxbqpgoEL3TKQlZUEtkC5 7 Uq3ulZvkYi4wPFXhQQJ1RGXuq EUuC7TdjY1nWpMtPYIrMKSfE3 XuuUHlKAlzI013BDsnDzM6SIC l itViZ0RpATNweIcbLeZ5m7H7H r1YjFylsKPsPT8yViQvYYg1K1 JvAzg5HEFvdQhaJL5jmMFxCSv u Kc8ggDcbsXovVO5kBWPywmtqm 976GvKkr2lvMMSesITgNMryEI O3Z11kx1M5HXGeMOAkUHJ2fKF 4 jI6pjYnzocukxYOioRopuxSpk UhwAJokRXbkJ184OFJyaKzcTm HDMfv7V7AyAou6TXVhlKopPF3 n tQMjXTwtIj8gkGemmJbsPF5uS LDwkcrki312ThTvi4tlOQDsnU IoYOibGSW1Q40eo5Q9KNOxCKM w PSZ0pKZ1oB2wsWrwlpflaKMft EviqzQbaRoyLTgqTQpcR531EK DujYarZz1ORkk6A7TrWky8XDF z sPdkTO7uuLJpSPfzPq7nuSumt HtiEQ2aNSIwmuhnj695OuVnz5 hbBJJpkJZtNVwiDEM1B74jj2A 6 DFEhOGGzOXQ5sFF4hU7bpIjri jogbGVmdDsgdmVydGljYWwtYW fwN555RIKbuExgNeCrdYByMre v dGQ+NZ79jn54P6QpAjfuHma5I HPjPCK6lLM3cN5nWOTvVWrxq5 U0yTQ6H7QunvMwli4zc3xySSI z ZTo (more content not included)... Normal [facility] PTon 12-06-2022 INR Coag (PPP) [Relative time] 3.64 {INR} High 0.91-1.11 [facility] Comment on above: Performed By: #### 2 [id number] #### [facility] (DEFAULT) [address] [place] [address] PT 37.1 second(s) High 9.7-11.8 [facility] Comment on above: Performed By: #### 2 [id number] #### [facility] (DEFAULT) [address] [place], [place] [id number] Provider Orderson 12-06-2022 Provider Orders [id number] [facility] Provider Orders [id number]#[email or web address] IFF [facility] Coding Summaryon 11-06-2022 Coding Summary HTMLBase 64 YetsxkegLMz0gDo+PGhlYWQ+P B2VWNOhF23xlXMefJ9xA0YESN lOSywgQVBQTElOSyIgbmFtZT1 kaXNjZXJu IC8+KA9hDAExLjrqtSGgq8D9h XV0P84xtf9hWWrxmJL5RXXkRo Hmreali1jyiZz7DTkkRkbhGlB t NQPluP11IKG0yS84Gs62pDVju GXzs4qkoLm4YsDkWHQzGKR2kI ikMDdow9EaCLSkZ54flAXri3H 6 YFGipNeuuLZeJhAcuMH3kA2nL Gofwgtuk9msryrnVru0ov38eS Abm1N4sYG7O7DuaxN5NOAgyDH g UsfeoGKHwX5uqlcok0zrzncfS bGgQTNdLPm3SKj1NQChnPmdTk LdIL86BKX2SLWwnnTnV2LaUOS s rZbvIeP6b2E6Sf6EH2HGUeclH 1VNTUFSWTwvdGQ+XP11nf57L7 AqDebvRyt1RZFsUFM4lCI7aX4 n LPVqUDswu9J2pAK3O5VqfsRlm v4hr5vcWGLvHVkhP57spEPbz7 B5ODVnkYX9PNUwvBipIvZslV1 3 Oyc+CSApaLwfo1NsIvklm1jgc 7beaAo7MgehRMRnklWqdZcvTK Y0k8UsOj5yBWDdoSP9uZS5tD4 i UfAiFjC4IGsaY580UsRgnRXyY cgyE16iU9UlfLC+KNWvXal3RD KgfUyuKE0bT1OuDAFgrxomoVM m nPpfAX7bFAGolxvmNGRiyX7uD KWdZ3g3NuUvLmT4MQphJ1MmTS HmfmieKi11hD3hVjEePwN6PUb u K6SctiC5OPUcvDEvTUdqWHH7I 19km3C4XUZtHFMvYNM2fMZ0eI 1hbGlnbjogbGVmdDsgdmVydGl j IFxyMVwzC095XHAhvJpsEnAsR GluZyBEYXRlOiAgMDgvMTUvMj AyMzwvdGQ+BOYwETR6eEpoKQF n aZUeOXafIj3zdLhexVsoNO7gS SLqewrqJIJchV5mVJYelRTynK iqWF3rWQBpwnben555UfJjWPI 0 ZZMuwMQvN9AhdE4dXjHeLYKtS URpI8EfjLAjGKbfR711CYtwZb D9LUObvvSzP9LwSOPnnMcyBwL 0 b2H4Gj6Em1PnehohW1IioZSaQ tHuLfkxGLj7X3LaDsliiSD+PC 75ZJIkKT39NOg5TIB8wLyhQBh i ZDZgU7OibR5gYoZgCGGaXEDeR yc+PHRhYmxlIHdpZHRoPScxMD KbCjWuvTefHY4pBr8oHYJfWKJ v sAzjqQHyWnSar2fyNICiBYdxQ I3rzCsbG6YphDZ3PBLnp7k7Zx 93G40jI3EuoSP+GUHsfMI2eJG 0 dD6dRwJfOoW7YDqvQ589HxMqa OIdSapcp8clp5ulaGw8CoQ8RE MzvqIozFzpENC4j2HcLe42G92 s IHdpZHRoPSIxNSUiIHZhbGlnb l0uuT5mZe1+FYTyeQE9yPR4mC 2yUhWxPmN9IIwvM672JfNnzPJ v Pwbpb2jjg3uapRq4DsHdOOSga jIfgQncOMJ5l2BaKm14E6NeyV zft3KwPbt5uo46bKMcj4B6bMI 9 H6PkETOpzrvcsOHtjDqvQB2oI OShzlirQVJbkD2lBUBgS5l2Hz VmKaT2GMpiX2UazuV3DALsvHK g RUBepVQPiD9jaheys8pwjlkoF nViYSRoEXr3DNz2DWGluAdtXt KfSLN8NoW9GOL3mEFwmM5nlPp n okuanL8bJhw+RNE6uGKxbASYC Q0rXekynPE+IARrWAF3kVixXJ gbZRVpeX5tCSXgU8u2JgCfZrH 1 HUdaH9IrbmQ0QFPqkTXsXCXcg EAHkJ5nrlfby0avxlpdMeDlWJ TaFVm6MFs4BHRecDbvKdQyTKT 0 BnH9HKC8uLUscI3atGldiztbp G9wOyc+NmevbBbfILH7OSw2M6 KbAmw8YGFilXdxVW5boWDhYZs u Ap0fyJuqqUlrXN5pHIKycvwpm 500AtUyt8odLDSbpWKgDRpePE V7H61tw9Q2IHMsZDJyUPE8rFD 4 rL3ydOgaavnaeSZkjWwxdcPdr UrgANjxMMfmM824IYDpgKntQw PoRLz3J5ZrGfy8GSRlcGaxZU0 n yLUfGUewTg5pcMzitPotMK5tX URayqkkx983HwKdn9ofQGMqfQ GiDOraEXM1S82uv8Z6GLVhKJB w ZBS5uLA9tI9xwKydwyfaxMMfy YszbqFnjCreKOuuKYmdS532DF YhtKcpIfIwzFr4H3JeGgy3JIN z vBisYZ7djZMwOPhhLh8axWryc OeeRK5lLSHlqndec650GwKou8 adBZMmoGPtWZlsHAZ5P08ft8Z 6 PJHfWHAiQSH9tUE4kR0tvJcvf jogbGVmdDsgdmVydGljYWwtYW voS565BXZgoYypFgQksMguixM g UHvrWGa0S5SiEltadYZ+PC90Y NTeGC57sQTcvGSdk4rtwXh6Ae ByVAUhBVX9dDabOQjyw6SvXGD t R34vrLPqy1B5HVHrvTjxzEUhJ rGxqUG4aS8vMNkngwohe4nmch peZtidw9kccs81wH32Q98eFBc p MTLzBNSbBUBhSMWiqAuywo8vj G9wIi8+YTRpzHT9oUJ6pJ8hYM KkAyQ3YIdpG209LwHkcLLkXva j k8kco6oydVn5KgW4CGGupgPct MzkLLU9v2JvKl92B91fQLpxKY KqYYDsMSRhRZZuxDbcci7kwA1 w Ii8+CGMdnQX6iWX4rU4iJwYsU lY1WSclS703PeVhpMFkIkxmI1 5tH1WfmZR+FWEkAcg9NIUjlMq s FJ5apESjFFkaEx6xNPY3NiQiQ uZmSIjrB3AhWVQjitjfdibboA S4FCUyJJVsvY81Kx4gkVylCPN w vPZWbA3btgyxn3xbktcqNdSdT DQwSVx4MKg7WLFnfVcjPuCfFY A5WeM8FFB9rTXenK4dqDmhtyu g oZ8uR9EqTENfvbdhRr69mQ6xB gQjMnI3IOkjBun+A0iRTAWFFF PCL19DLAEiVBZMOU0YUI12VQ7 8 kRNob6G3wLE9B4LhGEQqtpkau qpnpAK4TXCqCYIodI88oNHpHZ sqTw3si2Q2p335EKMiICMprH4 7 Ye7ytMmtFLZxwHMZyH8pllncn 3mejgopYlQqEIIuVQh1WSa6XX YlxWcsZtUrRBT9WsC9YJE5aDB h nO0ylIhvlcsmyN4rHjg+MTIvM WKzFGg3BwledLX+YXUvYLS0xV gtBRigSPDglY8yEMDnV3s9MjO w XwN8LDcvL6YjKQInqxoqPq91r Q5cBnPiVqM6RWkzZ5BhjxW7XX FlyYAoREtsTBQ3M30fq9Q7VEX w SXOkVSU0hYR3sF7yvCmlsmdad GVmdDsgdmVydGljYWwtYWxpZ2 19MUKklPkbEvuoPPwnBBIpQB4 0 PW29cNLkf0T3pXM1L6ZsHAYii jwktesdwVH7IDYfPNAysB06wF GnXRelBo1ee1M1p417HTXnWKT w vU20Ym9cfSwlHLCjqCHZnF1bn dfuj6mvxifzPbUfSTRoOTf2PD m0KULseIeuJjXzGOM0EuE4XKM 0 sFIuqN8gpVqvzekzcT5wYhn+T UFMRTwvdGQ+SXYyVNL6sDyuJD iuDIDahY4sWSIlH6p7EoZkGqS 1 EUtvI1MvMVLuzapzWw26zW9tB vZtIoB8QCuoX2IcvpN1YZNvmU MaRUbnVZD8P35qy9F6EDWlLUC w SYG7gAX4hS0taMpfzrdtaSJme SlwdvTjbWhjRLjbYFbvO897GX SzvBeeCbXoO7ZcfeevGpQJkMQ w IQIwPS87SS02ND57A6OuEjhnu GFibGU+PHRhYmxlIHdpZHRoPS htQJSqDyFssIgaVI2jLp1zTWQ y WIHaoLgvmTTkOuVfu8zwGHDvL NpzQC8lqYnaX5ZcxGK2CHMxp5 z9Oh02J94xQ2QkmUP+PGNvbCB 3 wYS2xB9uWdOnXpQ9GXksR497D tPheCXfKkeyo5lnr3ybyYp8Hq ZiYTXrplFezLljMSG5g3DeRi7 8 D68oZSjhJQImOSIuWEFbWXLqt Wjeng1zaO7jKp6+GUZmjWO0hR M9xD6uPtEiJmJ4BNusV990JvV v zSLvMlymE08eC6PpxOG+PHRyP mx9EEJjfEqoJC5ytYWvQWkhNs 9dPJR9OoJqIjTxHXjkM0JyQBK p agoyvkafaDT5WVOkKYHduY10B s4vlIklEv4gWQDaTRW3YZDncF HkT6NvvI2iUkRpIIAvSZZyR1B l uXGrGZsfZ742KZdyDqF6BARxb bJfG7EhXJQsnPqeMdQ7x8I5Gp 1InYgzmZJiFM1uSkVnKFy2E9R k Krm9WLYifQdvDR4mrZVbNWfyE w8oyWhklPgwZF6iBBVtspbuv2 54HiSad4skBIKuaHFvPRgrIIZ 7 G70rc0K4HOXkDXFwTRB2iTH8b O8srDmutcpacAHmqJerodNoqS ugDUudMVhaL013UHSasGhyHxM J Tak9B9CaYsn1KNFyzSylZM7kg YHwKOlbIc7ayAjukUfaPR1zIN Bghzyfy346PpEey3rmNEZnmVT g XXiwIVL0R71ik9Z1FGFjXTSqL CJ9fXV4oP6mbOufkodvfHXtyX lwizDroLleIBatDYpoW155CSA v gSmzAn8SXmy1E7KbXae2QWLvt HcjTD0mvTRfZTfpDq6tyYxhqD izSA7qJRGktwuoh509KgIxh8n k INVocYSyBDiuONV6T26ft0Y2L NTmCHYcJHE2wFS5vC5rnElqjy ogbGVmdDsgdmVydGljYWwtYWx p T115IOMfaJifOjYdlCZtQmztw GQ+AE71sh57W2ZmAqrdNxl1MF HyJHK1aYV1bX4fKCWwDBphu8Q 5 bGU (more content not included)... Normal [facility] PTon 11-01-2022 INR Coag (PPP) [Relative time] 2.74 {INR} High 0.91-1.11 [facility] Comment on above: Performed By: #### 2 [id number] #### [facility] (DEFAULT) [address] [place] [id number] PT 28.2 second(s) High 9.7-11.8 [facility] Comment on above: Performed By: #### 2 [id number] #### [facility] (DEFAULT) [address] [place] [id number] Provider Orderson 11-01-2022 Provider Orders [id number] IFF [facility] Coding Summaryon 10-29-2022 Coding Summary HTMLBase 64 KvrnigtmFTo3nDt+PGhlYWQ+P S5AQYWeF30plYDmuN3xE3PCOM lOSywgQVBQTElOSyIgbmFtZT1 kaXNjZXJu IC8+AJ4vYGEwOseyfOCok0J4g RM8C71icg5iBImbtGB9RDTeWq Jowjvpf0sduWs3EYiuQofzGbX t CMHicM68IJC6wR66Qe21gJBcr KZtp7rkwMh1WfYsBNZrYOG7lC jmVMbir3InGZAjD43onKRbi6G 6 VYQlfAdrwFKlQkXafHT9jX6zQ Otgivmnk6sdahhjOky2ph63tS Ujo7I8mCT9X9EgfaR8UQOmaPE g VuuhdWODqX0qybvus9atigpaP xLpXYVlDXi8IFa7HWXzsPdtWd OlRZ21JMY4TYFhxwQyK1PfPCH s fZqdKlU3k0X5Sa1PD9PYYmyfR 1VNTUFSWTwvdGQ+TM24st05S7 YpDpbpKyy8DOUuCJR0yBJ0kE0 n MGMvGTfky8D4aPL4X8MqvzYmh l2xv6bcVHDrRDejD14uxEGmx6 O5QZBapRJ0MYZoyUpzHpEtdM1 3 Oyc+QDSexVeim0IqWsgqx5jcc 9tmfXs7UlwiXRAbxjTrxDlhLO G6g3QuSy6vNWOqqSW9cSF0iG9 i HlBpCfO3VMfnJ052OcGlfMYjK nrfS17qU6UnwSD+WGZxEhi0DG XxlTfxGG2mU1NuPWCzhdrbyHV m xEbyYG5bXCRdyohlATYnlH3tZ MDwS0f2ZyRpJvS6KBguC9JtYC TqjuvzYc55tW1hFyHwZuV8PWr u X9DvejZ9PVTnkQQhQVfeJIU9S 98nx1A5PKVwWZCtKEV7vUI4eM 1hbGlnbjogbGVmdDsgdmVydGl j CCqhMTidT085NPMzoYsbWzZaQ GluZyBEYXRlOiAgMDgvMDcvMj AyMzwvdGQ+ZYCuWAD1sVsyANN n mZOgVQxlSy0bfZntdIjtRB9rW CIywdpqAYJozT3xGNAjzAGfdL elJL3rMHBvamjqf594EdFsCBZ 0 UJAktBPkN0PbpN0hPvFzQZOrR BTdD1UzfIYcWPsoF733VYxoZh W5QCLldbGkH9TaZNWlbLroZtS 0 f5M3Ty3Rh9WtgejaR1CseZNnF iDnWhrmSJq0E9EwQohvoED+PC 60CTSdXV95UIi7MIP2jOycREe i JHMbR3AczE7nNmUeIVVtZLAtG yc+PHRhYmxlIHdpZHRoPScxMD JnViSrgDrvCT4sIp9dBNIgVQL v xMaegNGvEdUfj1seOYKvCSwrG S5mlGygA9OfxWW4BCGur9k2Rn 19E82gH4HypVR+HMOxvUG4oKK 0 cW5cZcAbRcY3ADwrH408WbIhn FJkJojqo9pqq8gvxKp1KgH3TK TvstXofEcjWVM5o7VcCe18M39 s IHdpZHRoPSIxNSUiIHZhbGlnb k2egI9bBm0+ZCTshWY2qJZ0uN 5uLpBjGkJ2GClvL642PoRpdWX v Qptad1luk5puhPz7OeBsDLOnq aXkgYurZPV6p8ZsTb99W0VyaB jce7InHol6td06xZCfz1Y4gYE 9 X9GdBOLfhzarlJEwoMpfQP1jV UFexltvJVQwnX0wSBLgM0m7Is NbFiP6CXgqJ9QoqvK0SCSizIV g DROwkCXKdO5msmoft7ygriafU jTiUASxWAp4GLa2KYMfuKkfTh XsAKX0XtF5UWL2zDGiwQ2ncHk n nuxqxI2oBcu+AAQ3eOSguUSVN Y7iMafpkMF+CCZcWJB6aEykNP zaCEXbeM5mTMCjM6s3DoPwGzZ 1 UBhrV5AlfgC2SDRvjWAzZBAhb CIJiG8vizsrd5xqjokaAsHeSG XlVJh9DVo9MMVgzYszSpNoROT 0 UdG7MGJ5sPXslB2twUqjtzizc G9wOyc+VgiolJzyVKQ5HYn3U1 SoFpt6UXShvDxgOK6ozCBsAGi u Ii7eaEtgcViqLK5jWQIyjyzhi 862VjTzt8kxQQCfqXLaAOzrJW M9E42ym2T8PDKfXRQzMTR4xFQ 4 mI4roKsegadgvLFiqVztqtIsb GtxOXprFMcjX840STNdlMxlWy UiBMq5Q4EmKwe3OHPxyEbrZF6 n pQAfPUahWp9zcVtlxRgzFN7wI UGswtght052JpEwu2lzEILccU YoBFbfHGF6O90ww7O9BFXfLWE w ATS2iIK6yO2tbLnjtoxaoLRit ZqvpdVrcJxzJGimJNctV815ZK FkrGlcKhRezGd5N2IzBau5XDZ z pUcjKZ7nxVGsQCraNv5hpAxag XkoQQ7kGPXfthpqx339CjPmt4 vfSDObgWQdOCozDOH5E55yd6I 6 ORCiMTGhMWK6wPW6rR8vhOswu jogbGVmdDsgdmVydGljYWwtYW qwI321OJShlFhwAkYnnRlylmR g BKsxPLb2X4SzHtjiwCZ+PC90Y RDkAH16wOYrsHKog4ooaWe6Rd UjLIRgAFS2oMbaSJcjc2BkSES t Y99frQTup1H0GPJbsYqnqKLyC eJesEX5wJ1mBLezgsgyf6owes gqIzxkt0dxnb71eN80F86oNCa p MKXaBGQoANRgTTIycXvkkh8su G9wIi8+YPZmtYC8yDJ6bY9lII BpPaD7FAwtD910KqJcbXCaUoz j a4rwl7ttfCz1QjQ8FKYwdjXqk ColWCT6r8QpKs10S05tKNxyZC GtURDqMZEjUQWtwCxesj7iqH5 w Ii8+GDDldXB4dOJ4uV8pAiDtG pV7GDkoQ230VqJndEQjGxiwD8 1zQ6EmmPK+TBCjLtx2UJGuxXi s AK7txTEfVCfgXe3pPGU8VwVuA tElTFfsA1VlEKRqcwfnngpsbH A6ZUElWEImkK52Ks7cpPjwRMF w sZIZnC6ckmwdc1zepznlGfVnC EQqHAg7KOx5BODqbVbrNaRbCG O5ClI8ZPT1fHSfrT2icTixwxy g dK6cL1NiFCShyrfeKh39oQ6oT bMpVrI3NAunHtj+V3lTBCEYNQ FIW39ZATGgMYFKVV0QNQ65VQ8 8 mLGse7T1nMH4I0BgWSEesvdmf txwuCW6XDHhYKAknH41tUHrYK jeHl7tw7P6x322LFOkDUKnaP5 7 Ck8urAklPIVcwYFOhP8hrryry 5blrsziNhHbMVSiQDq0ADw1YW SbpFgiCuUoHAD9EcL1NXL1sVB h kN9ycEyyoghgbO1mOqk+MTIvM RRqXCj0VvwnkTY+ZIYyZTT6xH akVJpsGOKqjZ1zFSInU4x5WuL w ZlA4BLnqC9XjKUUsxadkWb56d F2jClNdEcS8PQkjT6BwsiZ9AI IpdPWbRChfZKG8Q89ve1Y3ZHO w YPEyEEW2oXM1lF9qqRkkrnmmw GVmdDsgdmVydGljYWwtYWxpZ2 22WJEbuOrvGxeeCYtyTAMsKZ4 0 GT79kECzt1V9sGT7P8FsFVZtc znixahciPP9XAUdKVZwnM48vR VuTNquIq0ts1F3w604RBClDXF w qZ93Za5buJzvMTIorEZAoO6or akvl1afmuckJaYeYHNdJPl8OM x7WDGakHcbBfItPXI1ZhN5EKB 0 pHKnfM9mcUmccxnmoA5yJyy+T UFMRTwvdGQ+SAOqARI8cZkcQY luXACmzZ5jKTLkA4n0MwCbQlJ 1 UYycD8UjDGDjocvbOf52lG2fN lSjUeY1PXowQ3EqcfW2DCQlbD LaWIymQQJ2F34ku6T4IAJyEJN w NSV1jYU8pX6xuHyzusiogHQhz IckbfQvwQocNPskLMexJ854TN XkkCcuDw2BNA57HE58K9ZiHlk v dGFibGU+PHRhYmxlIHdpZHRoP KsfKSQeGiCexEojSA2rXz5lCY ItLAUecCholIYwLdEsh8gvDZW z FOmvOT8lbSotB1FswTB3ONPri 6v2Ud52M37jY6VegQH+PGNvbC N1mUH2sZ3eTrMeCvP0PAvaH96 9 LmYiqVXbOnukf8dey1yngUl8F pDyPJRqcfOqtNaeLQV3l7HmIr 74Q71fJGfhDTAdXPTdMBEqKQQ h dDmaxd4beK5yLb0+WXCxrEG2u RO8oB5zOkDfDvU2ZOogD502Qw FlbVAnIhjwM58vR8BzjOK+PHR y Egk2ODHhbJcyTW4ciAYlXVubE y1qPSO7OiIzHwMfNTgbS7DdGM BqhasalcmwnRL2UVCvPYQaoJ5 7 Tx1ydUibHq3dJJAeNAD2DJIyf VVdM3LmuR4oIwUaLEEaQJRgZ0 EzsYGrMCioC805ANatFsZ2ANY l wiGnF5ZlQKPjjYroXkU0s7E2N n3VdVsbnUQgHG7zJaHzPWf5O5 UtXpo4YMNfyLaqHK1srBRlMTp u Av1pdOpguBxjLA4xJYXcikamh 274InJfu5frHSZerNScJVhoJA V0C23fx7J4JKJvIXZlIHS4lMD 4 nH3syZvlzfpnqPVvuHwqvnAty PgvEHheRZauI506WXFdoWtiUg SGAem2K1SjRbd7NMBgqDdnJF9 n sIHtKGxuYi6kkPfxnSvoCB5xO GGswinkj860HoQhj1coXPNahO BrPZtdKCC5P04vn7C0XHCcLAM w OWZ9xVN1zM7hrUyzcjcrtZEyj SscxnYmaBlvHTdrMQwrF398LA RazJmwRj0DGwk7E9GbPpb5GYQ z bOzgJV5yzRGgKJdxFf6ifIdsj DciSZ9kPPKyfduuu473XwEit7 ilHLUmlOUiGQifGNP3Q65rk6A 6 CKEgDKAjLXO1nDE0oQ7mcOanc jogbGVmdDsgdmVydGljYWwtYW vvF848JVSjqKhuWqSmeFOrFbh v dGQ+NI20kv37L3BtProxCib0I KMuHKK0oCM9eT0bCEFmMYqrm2 N4cMI1P1XlmlYder2xg6ksFFC z ZTo (more content not included)... [facility] PTon 10-23-2022 INR Coag (PPP) [Relative time] 1.85 {INR} High 0.91-1.11 [facility] Comment on above: Performed By: #### 2 [id number] #### [facility] (DEFAULT) [address] [place] [address] PT 19.3 second(s) High 9.7-11.8 [facility] Comment on above: Performed By: #### 2 [id number] #### [facility] (DEFAULT) [address] [place] [address] Provider Orderson 10-23-2022 Provider Orders [id number] IFF [facility] Coding Summaryon 10-04-2022 [facility] RtzazshvTIi3dGt+PGhlYWQ+P N6WFFZhY79waHEvoO5qE7ELCN lOSywgQVBQTElOSyIgbmFtZT1 kaXNjZXJu IC8+GG8zGYRkVdgsuTDme5K0d DA5G16ndt9mUEtcjUX6PCPaNi Glxqimh9wurJr9NDutPaclAlP t ORMynX84GDK5aW26Xo54jGOnc MVzp8pmkNa2RgNtPCAlVWL6dY ioSDsxv8TeSZGzR28qfKMyg2P 6 BDHumRdzjZVeJgGzqGZ1fV4iT Hoausjuu7klyafnSmz2ss86oA Vwa3K3nSY6A0VankT7GTYxuGB g KpdvrUXIxY7swpozf7lziflcX jYdOHIzTDn8JGe7JGWspPxkDc FrUM73CEZ9VGGnltOpV7DnULC s dRgsGiA3o7M1Uq5PF1PDXxlxP 1VNTUFSWTwvdGQ+YM16es02B3 JyKritZdq3NRVvHXV4yLT2hG2 n FEBsCOjys8Z1yQJ4R0ZpdbSrc x1pj1rkGCRmLRfdW28ctUHuc3 M0LCEdxEF8SLNfjNckMcZhgR6 3 Oyc+BLVwlEpwq3QrSwiwn1thh 7dbxKi1UhytBMDzkhWuoYcoJT F9r4YiNh9vDRGlaMF8eTJ9nV1 i CiLaRaU5IHndH912ZjVkeEQqB pjuX55wE6GohTM+FPDaQka7BB IscXyoPR2xW1MqIFAfnkfooJM m xZywED7wBDEchruvYDZppR3bJ NJvW4n4AzZxAfV6HSqnT2XzBM LhdwpeCz42jS0gHlKlPuK4MJn u U5AzgoB0CIJvrUGhVRoxAHL9G 14km3P7MGOlAYWgHVO8iDO7oS 1hbGlnbjogbGVmdDsgdmVydGl j VUfrNXmfQ146GHTsfCzqOkZsE GluZyBEYXRlOiAgMDcvMTMvMj AyMzwvdGQ+KERsKJZ7kMwbKYY n jVYvFXowZy8shBiaeKsyZQ4hB BLgxccoWDHspZ3xUAUzqXNnoL yrPK5jZUXhenbxp613SxKcBRG 0 QMYksAGlE0ZhyQ0lUvHiPQPjS FOoS3QdvMHnPAicP618DZveZv J2XPJbtuMlI4FcBXSmfIkmRkP 0 s7U9Bo0Ha9SavxncG2TvuZEbI pSsCuheBLp2N1GwIlmfbBW+PC 33IBQhLB25GVq3KRH0nPavBYb i SFXiI6ArsL3mVpPaLWXrAZDjK yc+PHRhYmxlIHdpZHRoPScxMD SlAiWpnQatFC9dIp8aRADuANC v yWxgnVTlJjEtf6qwDFTgLYwvR R9yhBmaV6BxqUH7JCDxj4y5Fa 29T88fD3HqsTH+TMJpwMF0xYD 0 sF2xWmMwEzY2QJnyZ091MrPct DMyXhcwk2lbc4wcpPx9CmN5II NzykFohElyVLP2d0MzZm07W10 s IHdpZHRoPSIxNSUiIHZhbGlnb z7vvA5wEm2+ERGawPI4jOQ4jS 8jFqWmYaV0RNorL495XbCetTQ v Jntzx9moh6bdkNt6MaTdWIRbq yWeuZunZAW4w7GwKd78A2IxxA hsh4NeMny6uh95gUOoi4K2rTQ 9 M8JyACAktbnwaJBrqPehOF7wK EZmsxbxSIVljU1aNPGcR6r4Jh EgXjG5NEnfQ4MyqqY9FFElcJR g EDSrrMBQoD9xmsfod2khpsodN pZrQHBsXJz3MVl9ONRbvTxhOq SvFKP2OpI2UYG1dOVbmN5pnBa n ehsksM1tDru+NJH4iIUbhATRQ E3cYdtupHF+PNKwSGZ4kFpvIT zdWLDmkA9rBQAtZ7j3AiMcGpC 1 PGpxK9BbxhB0SZEpaKNyNKAnk JBJxG0vhsusc9mxmbscYrIqEJ CzUZy5ZQd0DHTegRifUiYuKYW 0 CqP7RFR4hYIsuD4elXwwyodtp G9wOyc+QracxZchKJX4EBq1V5 YgUtn8YFCkpHapMI4waCQqECa u Tj0axZvmxFzqTD6dMJRnvzxsu 224VnTpz2tsCDGmlYXdXBgcTL B8I08wr6V0LQDmITGjMQX8mBH 4 jP6xqZyjohuznLYclLfelfUzj WdpOIbyQZaxH159KQAkzXidKo QkDBo1T5KkPat0GMCfjRpzCD3 n fPYqKHivIq0dnVpchHkrNC6yI WRngwuui473KvQsn7rxNJEwrM OtTAhwZBL0Q29cc0W3LVGoMMU w DNV8uGP6hL1goJqeutvdsSOok HjtykXycIxpBRefOUltI976XT RymFemMyPkgSl0Q6VxAow0OPC z jLmfIJ5pjDSdIEtuWu4geCowm KrhIY3uKQPqwsvnn365NjZip8 qoUBFscAPtJBezVJY3W98zi8N 6 XDEmVILpNPB0dHM5lM1bcCbea jogbGVmdDsgdmVydGljYWwtYW ryA593SEUjiOfmWdBetAeuvhW g IHhfPLk2M8RlNyaahFF+PC90Y CIoZW91tDCqdWFoi3abjOd0Jd ZvXLCjTZS4aGngQGmci2SxOQG t M14ubDCdi6J7WOYsmKgcvRKhF nZbyCI8uE5jKWhxxpkfi0izsn heUegue2rhmd46rH34J86kFNz p RWLoOJYhEAWzOHFwwHjwdq1rh G9wIi8+SDHgoVZ7iQV1iA1dHV BgYoL4LKrsO097GpEjxVSqYrr j b8xtx1anrBa1WxQ3MTYcjnOjh FzfZUA5k1NeIl63J15gWGsbEH FkULJnSFDuSJNhdNwmzp8zwX6 w Ii8+CYMmtZS7wPW8pQ6eTxSvK wJ8DXrnZ692MfSqnYJrWkylW9 6hB7RaiWN+CUTxCyj0MLRjoLt s PM4gbJLyGZrfSp4uAPM8HzEwH cLmBHpaE7DxSCDhifrrueauwX Y5KZNoRWZkvA35Pg3qjRhcFGR w vNVRmE6svlklp0zcayofOzGlX QZwZFb0WAy4NMEirDrmMaNaSY E6LpK3HSO1yKRqoE1trVznwlt g sD4nE1XeQODvgypkLn63qI6aX gKjRfZ7LYkfMdo+V0vWTMIDOX GHH12XSCBxCMAPAL9NCB75VZ9 8 aCAbg1L0jLA4V8BkKXFcpnnvq qcbuZI7IPSeHQFvuM83tUTaGT dgJe3gj0I3q556VZYjYWQxdJ9 7 Xn9lnSknQTPjxOXYtL5chufsy 6mrdyapVeMtKYCqOAt3KSl3GR ZsjHspEyRjVFB8DcA4VYM3wTZ h uT7jxCwgifhttF7gKcg+MTIvM IJcDRf1TkajiSX+ZPGgPOY7iF suXCglXRSbwU9nIEZiW0u2BuA w EiK6RJqpR4KqKCOrylkgRt96x J2hBtHcPgN4BUdyI1YqlcA0RK PbuFCbXOafUKN7Q77ui1V0VVX w BVEvJDI1zIZ4mP7pnEvjfgxhu GVmdDsgdmVydGljYWwtYWxpZ2 63XLKjbHhaZkxqVKuyNELqMB6 0 UP97nWNvd7S3yLI0C5MhAGGpt slrdvrevHS7QDIvNTXdhX44gG EyBSdmRe7ww0H5l036MIQnQOM w dC56Zd1feAjhPQSqnTAXhK5jv pign8klsqceMhSuNHJpOLl4OL g1WYLobSwlSkJvTMC1WhA4FTE 0 gLRjhH3jfHxkeffklN2mWdn+T UFMRTwvdGQ+NNEjJLU0fAmqOS hrYOJaxO5fKADjG8j2SxVzGtN 1 VOyjZ2DyFRDhxqcsQn39uB1uH zWwMtS4FNmjZ9NtdtC9AZHxsI YyRPigWKB0A76jg9L7OKTyEFK w KJI2rZK9sE7tmMgcttyxtKHqo JfafiNrxUbaIAliBKnqI919IK FskWcqHz0UOO06CE01M3CcThf v dGFibGU+PHRhYmxlIHdpZHRoP NamPNCjZkMdvElkHC8iMr6gWB YsTMMyvYmpiRMrIiPjh4oyFOT z UQgwXB2psFwxJ8BgaBE0POBzz 7f9Lc32A20aU0NtnQS+PGNvbC G2uRJ0tY3uScLuQaH3JYwbR42 9 WhLfvWIhVjmtd0rkt8mggFu1P eYhLZBsuyLbtNmfDVA7r5AySn 97Z13sAXlzOKQpWLJmYVDvSPV h bOleix1cqT8mXn6+BDZaoDS1s ED4xR6gEnKgWtY4DWpwF003Pd ZzfGNnPemuP71uW4LlyBR+PHR y Ugh8EZOqaFxfAJ0tqBHwIEleH s8hNVK8DpShPeEkPJgqQ1PqEH BvkldfmwfjjYY5AVWlPFCjyC3 7 Qz5vrNclVd3jEPWpVKD9EGUgq SJeV7TozK9nJhAlYVOyAEPmD9 LmyKOxZFiiS051YFkkKuY2TJI l vhHnJ4VcPQCsmScrIxD6p5R1X e1FlSovyPNaZW6jAxMdPQr0G7 GmItv1SLHjmWijWB3daYJqRBq u Fr3bpSgjsFhrOL1iFLCqkuxdk 722CyGno8xfUJTtzBKhAKmrPI D3Z77rm3F7JHMcEFRnPZS7eIH 4 xU7jbQsimersbYXqjFevauRvj ZsyPXngDMwoI481LZZobHmeUt CGBvg0J6LdDae6TAKakXjeHT2 n nUEtBRvgCs6ijSgyvSueET1vL EVtmqbfq046BnUua1ihVCXddQ QsOAuoOZQ5N01cx6P1NISnYKQ w KJA4oSX5aH8gqDtqdlargYGfp VyyucAabSedVNyeJIdvM749RO VizCloUd5DVda4L6VtZar0LOO z eFdbOH6gkYQlQPmtBp7vkYkbs StiVP9hLESvuhduw820YbOnf2 vfZYTzgCQiHTryJIZ4U42sx7V 6 HHMuPPQnNHX2aDE9xM3qhGmez jogbGVmdDsgdmVydGljYWwtYW pdQ815IVMueAvzOaLhfRVuNnx v dGQ+FC20ls74J7OlYbatSqk4M HEoEAS7uPQ6zQ6kPSAsJNxfz7 R6pIR7T4VdfoNkcw3pb2jeLSQ z ZTo (more content not included)... Normal [facility] PTon 09-27-2022 INR Coag (PPP) [Relative time] 3.06 {INR} High 0.91-1.11 [facility] Comment on above: Performed By: #### 2 [id number] #### [facility] (DEFAULT) [address] [place] [address] PT 31.4 second(s) High 9.7-11.8 [facility] Comment on above: Performed By: #### 2 [id number] #### [facility] (DEFAULT) [address] [place] [id number] Provider Orderson 09-27-2022 Provider Orders [id number] [facility] Provider Orderson 08-10-2022 Provider Orders [id number] [facility] Laboratory - Coagulationon 0 08-09-2022 INR Coag (Bld) [Relative time] 2.03 {INR} [facility] y [address] DO Work Phone: PTon 08-09-2022 INR Coag (PPP) [Relative time] 2.03 {INR} High 0.91-1.11 [facility] Comment on above: Performed By: #### 2 [id number] #### [facility] (DEFAULT) [address] [place] [id number] PT 21.1 second(s) High 9.7-11.8 [facility] Comment on above: Performed By: #### 2 [id number] #### [facility] (DEFAULT) [address] [place] [address] Office Visit (Cardiology)on 08-06-2022 Follow-up visit Diagnoses/Problems Assessed Hyperlipidemia (272.4) (E78.5) Permanent atrial fibrillation (427.31) (I48.21) Chronic obstructive pulmonary disease, unspecified COPD type (496) (J44.9) Class 1 obesity with body mass index (BMI) of 33.0 to 33.9 in adult (278.00,V85.33) (E66.9,Z68.33) Former smoker (V15.82) (Z87.891) Quit: 02/2019 High risk medication use (V58.69) (Z79.899) Orders Class 1 obesity with body mass index (BMI) of 33.0 to 33.9 in adult Healthy Weight Tips; Status:Complete; Done: [id number] Some eating tips that can help you lose weight.; Status:Complete; Done: [id number] Dyspnea, Permanent atrial fibrillation Renew: Furosemide 40 MG Oral Tablet; take 2 tablets in the am and take 2 tablets in the pm as needed Hyperlipidemia Renew: Atorvastatin Calcium 20 MG Oral Tablet; TAKE 1 TABLET DAILY SocHx: Former smoker Tobacco Use Screening; Status:Complete; Done: [id number] Patient Instructions Please bring all medicines, vitamins, and herbal supplements with you when you come to the office. Prescriptions will not be filled unless you are compliant with your follow up appointments or have a follow up appointment scheduled as per instruction of your physician. Refills should be requested at the time of your visit. Follow up in 1 year Chief Complaint ELINOR FLANAGAN is being seen for an annual follow-up of. History of Present Illness Patient returns in follow-up of problems as noted. In the interim he is done well from a cardiology standpoint. He is tolerating his permanent atrial fibrillation with no dyspnea. He does have some problems with leg edema but I believe it is multifactorial including atrial fibrillation, venous and/or lymphatic impairment, COPD with pulmonary hypertension. In light of this we suspect that improvement in the edema is difficult to achieve by fixing 1 of these problems and instead we recommend intensify diuretic therapy. His offers that he has not been using the diuretics and as a consequence we recommended that he use them at least part of the time. His biggest problem appears to be chronic dyspnea related to advanced COPD. He is oxygen dependent and arrives today on oxygen therapy. We did advocate the merits of weight loss as a means to improve some of his respiratory symptomatology. Surgical History Problems History of Appendectomy History of Colon surgery History of Complete colonoscopy [id number] History of Tonsillectomy Current Meds Medication NameInstruction Allopurinol 300 MG Oral TabletTAKE 1 TABLET DAILY DIRECTED. Atorvastatin Calcium 20 MG Oral TabletTAKE 1 TABLET DAILY. clonazePAM 0.5 MG Oral TabletTAKE 1 TABLET Twice daily PRN Coumadin 2.5 MG TABSTAKE 1 - 2 TABLETS DAILY OR DIRECTED BY [facility] Digoxin 250 MCG Oral Tablettake 1 tablet by mouth once daily Furosemide 40 MG Oral Tablettake 2 tablets in the am and take 2 tablets in the pm as needed Melatonin 10 MG Oral TabletTAKE 1 TABLET Daily prn Metoprolol Succinate ER 50 MG Oral Tablet Extended Release 24 HourTAKE 1 TABLET DAILY. Omeprazole 40 MG Oral Capsule Delayed ReleaseTAKE 1 CAPSULE Daily Oxygen Warfarin Sodium 5 MG Oral TabletTAKE 1 TABLET BY MOUTH EVERY DAY OR DIRECTED BY [facility]. Allergies Medication Sulfa Drugs Recorded By: Shivani Lozano; 05/25/2021 1:09:49 PM Social History Problems Caffeine use (V49.89) (Z78.9) 1-2 cups coffee Consumes alcohol (V49.89) (Z78.9) 1 drink daily Former smoker (V15.82) (Z87.891) Quit: 02/2019 No illicit drug use Review of Systems Constitutional: not feeling tired. Eyes: no eyesight problems. ENT: no hearing loss and no nosebleeds. Cardiovascular: no intermittent leg claudication and as noted in HPI. Respiratory: no chronic cough and no shortness of breath. Gastrointestinal: no change in bowel habits and no blood in stools. Genitourinary: no urinary frequency and no hematuria. Skin: no skin rashes. Neurological: no seizures and no frequent falls. Psychiatric: no depression and not suicidal. All other systems have been reviewed and are negative for complaint. Vitals Vital Signs Recorded: [id number] 09:58AM Heart Rate52, L Radial Rkcwueoz415, LUE, Sitting Jlwvrhvas76, LUE, Sitting Height6 ft Akwkao744 lb BMI Hzbqtcvoqk87.5 kg/m2 BSA Calculated2.33 Tobacco Useb) No PHQ-2 #1. Over the last 2 weeks have you felt down, depressed or hopeless? (If yes, answer PHQ-9 below)No PHQ-2 #2. Over the last 2 weeks have you felt little interest or pleasure in doing things? (If yes, answer PHQ-9 below)No Falls Screening (Age 18+)a) No falls within the last year Physical Exam Constitutional: alert and in no acute distress. Eyes: no erythema, swelling or discharge from the eye . Neck: neck is supple, symmetric, trachea midline, no masses and no thyromegaly . Pulmonary: no increased work of breathing or signs of respiratory distress and lungs clear to auscultation. Cardiovascular: carotid pulses 2+ bilaterally w (more content not included)... Normal [employer] Tobacco Screening.on 023 Adult depression screening assessment No [facility] [employer] [employer] [facility] 250 DO Work Phone: Fall risk assessment a) No falls within the last year [facility] 250 DO Work Phone: Tobacco use status CPH[facility] b) No [facility] 250 DO Work Phone: Laboratory - CoagulationOrde red By: Dannielle Gan on 05-24-2022 PT Coag (PPP) [Time] 33.4 s 9.0-12.9 [facility] Laboratory - Coagulationon 0 05-24-2022 INR Coag (Bld) [Relative time] 2.9 {INR} [facility] 600 DO Work Phone: No Panel Informationon 05-24 2.9\S\2.9 Normal [facility] 600 DO Work Phone: Comment on above: INR Therapeutic Rang e A) Pre- and Peroperative OAT started two weeks before surgery. NOT HIP SURGERY: 1.5 - 2.5 HIP SURGERY: 2 - 3 B) Primary and secondary prevention of venous THROMBOSIS: 2 - 3 C) Active venous thrombosis, pulmonary embolism and prevention of recurrent venous thrombosis: 2 - 3 D) Prevention of arterial thromboembolism including patients with mechanical heart valves: 3 - 4.5PERFORMED BY:[facility] [place], [place] [id number] MEDICAL DIRECTORCATE DOBBS M.D. 33.4\S\33.4 above high threshold 9.0-12.9 [facility] 600 DO Work Phone: Platelet poor plasma interna tional normalized ratio (INR) by coagulation assay (relatOrdered By: Dannielle Gan on 05-24-2022 INR Coag (PPP) [Relative time] 2.9 {INR} [facility] Comment on above: INR Therapeutic Rang e A) Pre- and Peroperative OAT started two weeks before surgery. NOT HIP SURGERY: 1.5 - 2.5 HIP SURGERY: 2 - 3B) Primary and secondary prevention of venous THROMBOSIS: 2 - 3C) Active venous thrombosis, pulmonary embolismand prevention of recurrent venous thrombosis: 2 - 3D) Prevention of arterial thromboembolismincluding patients with mechanical heart valves: 3 - 4.5 Laboratory - Coagulationon 0 2-02-2023 INR Coag (Bld) [Relative time] 2.77 {INR} [facility] Work [facility]: Laboratory - Coagulationon 1 05-02-2021 INR Coag (Bld) [Relative time] 2.43 {INR} [facility] 600 DO Work Phone: Laboratory - CoagulationOrde red By: Dannielle Gan on 01-29-2022 PT Coag (PPP) [Time] 37.0 s 9.0-12.9 [facility] No Panel Informationon 01-29 37.0\S\37.0 above high threshold 9.0-12.9 [facility] y 250 DO Work Phone: 3.2\S\3.2 Normal [facility] y 250 DO Work Phone: Comment on above: INR Therapeutic Rang e A) Pre- and Peroperative OAT started two weeks before surgery. NOT HIP SURGERY: 1.5 - 2.5 HIP SURGERY: 2 - 3 B) Primary and secondary prevention of venous THROMBOSIS: 2 - 3 C) Active venous thrombosis, pulmonary embolism and prevention of recurrent venous thrombosis: 2 - 3 D) Prevention of arterial thromboembolism including patients with mechanical heart valves: 3 - 4.5PERFORMED BY:[facility] [id number] [place], [place] [id number] MEDICAL DIRECTORCATE DOBBS M.D. Platelet poor plasma interna tional normalized ratio (INR) by coagulation assay (relatOrdered By: Dannielle Gan on 01-29-2022 INR Coag (PPP) [Relative time] 3.2 {INR} [facility] Comment on above: INR Therapeutic Rang e A) Pre- and Peroperative OAT started two weeks before surgery. NOT HIP SURGERY: 1.5 - 2.5 HIP SURGERY: 2 - 3B) Primary and secondary prevention of venous THROMBOSIS: 2 - 3C) Active venous thrombosis, pulmonary embolismand prevention of recurrent venous thrombosis: 2 - 3D) Prevention of arterial thromboembolismincluding patients with mechanical heart valves: 3 - 4.5 A1C HEMOGLOBINon 1101-2022 HbA1c (Bld) [Mass fraction] 6.6 % [facility] [employer] Other HbA1c (Bld) [Mass fraction]o n 01-23-2022 A1C HEMOGLOBIN [facility] [employer] Other Laboratory - CoagulationOrde red By: Dannielle Gan on 12-04-2021 PT Coag (PPP) [Time] 27.4 s 9.0-12.9 [facility] Laboratory - Coagulationon 0 12-04-2021 INR Coag (Bld) [Relative time] 2.4 {INR} [facility] 250 DO Work Phone: No Panel Informationon 12-04 2.4\S\2.4 Normal [facility] 250 DO Work Phone: Comment on above: INR Therapeutic Rang e A) Pre- and Peroperative OAT started two weeks before surgery. NOT HIP SURGERY: 1.5 - 2.5 HIP SURGERY: 2 - 3 B) Primary and secondary prevention of venous THROMBOSIS: 2 - 3 C) Active venous thrombosis, pulmonary embolism and prevention of recurrent venous thrombosis: 2 - 3 D) Prevention of arterial thromboembolism including patients with mechanical heart valves: 3 - 4.5PERFORMED BY:[facility] [place], [place] [id number] MEDICAL DIRECTORCATE DOBBS M.D. 27.4\S\27.4 above high threshold 9.0-12.9 [facility] 250 DO Work Phone: Platelet poor plasma interna tional normalized ratio (INR) by coagulation assay (relatOrdered By: Dannielle Gan on 12-04-2021 INR Coag (PPP) [Relative time] 2.4 {INR} [facility] Comment on above: INR Therapeutic Rang e A) Pre- and Peroperative OAT started two weeks before surgery. NOT HIP SURGERY: 1.5 - 2.5 HIP SURGERY: 2 - 3 B) Primary and secondary prevention of venous THROMBOSIS: 2 - 3 C) Active venous thrombosis, pulmonary embolism and prevention of recurrent venous thrombosis: 2 - 3 D) Prevention of arterial thromboembolism including patients with mechanical heart valves: 3 - 4.5 INR Therapeutic Rang e A) Pre- and Peroperative OAT started two weeks before surgery. NOT HIP SURGERY: 1.5 - 2.5 HIP SURGERY: 2 - 3B) Primary and secondary prevention of venous THROMBOSIS: 2 - 3C) Active venous thrombosis, pulmonary embolismand prevention of recurrent venous thrombosis: 2 - 3D) Prevention of arterial thromboembolismincluding patients with mechanical heart valves: 3 - 4.5 Laboratory - Coagulationon 0 11-20-2021 INR Coag (Bld) [Relative time] 1.5 {INR} [facility] 250 DO Work Phone: Activated partial thrombopla stin time (aPTT) in platelet poor plasma by coagulation aOrdered By: Ori Young on 11-13-2021 aPTT Coag (PPP) [Time] 32.6 s 25.1-36.5 [facility] Basophils Auto (Bld) [#/Vol] Ordered By: Ori Young on 11-13-2021 Basophils (Bld) [#/Vol] 0.0 10*3/uL 0.0-0.2 [facility] Basophils/100 WBC Auto (Bld) Ordered By: Ori Young on 11-13-2021 Basophils/100 WBC (Bld) 0.5 % . [facility] Blood hemoglobin measurement (mass/volume)Ordered By: Ori Young on 11-13-2021 Hemoglobin (Bld) [Mass/Vol] 16.0 g/dL 13.0-17.0 [facility] Blood leukocytes automated c ount (number/volume)Ordered By: Ori Young on 11-13-2021 WBC (Bld) [#/Vol] 8.1 10*3/uL 4.5-11.0 [facility] Eosinophils Auto (Bld) [#/Vo l]Ordered By: Ori Young on 11-13-2021 Eosinophils (Bld) [#/Vol] 0.4 10*3/uL 0.0-0.45 [facility] Eosinophils/100 WBC Auto (Bl d)Ordered By: Ori Young on 11-13-2021 Eosinophils/100 WBC (Bld) 4.7 % . [facility] Erythrocyte distribution wid th Auto (RBC) [Ratio]Ordered By: Ori Young on 11-13-2021 Erythrocyte distribution width (RBC) [Ratio] 15.3 % 12.0-14.8 [facility] Hematocrit Auto (Bld) [Volum e fraction]Ordered By: Ori Young on 11-13-2021 Hematocrit (Bld) [Volume fraction] 49.3 % 38.8-50.0 [facility] Laboratory - CoagulationOrde red By: Ori Young on 11-13-2021 PT Coag (PPP) [Time] 14.5 s 9.0-12.9 [facility] Laboratory - Hematology and Cell countsOrdered By: Ori Young on 11-13-2021 Nucleated RBC/100 WBC (Bld) [Ratio] 0.1 % 0-0.5 [facility] Lymphocytes Auto (Bld) [#/Vo l]Ordered By: Ori Young on 11-13-2021 Lymphocytes (Bld) [#/Vol] 1.2 10*3/uL 1.00-4.8 [facility] Lymphocytes/100 WBC Auto (Bl d)Ordered By: Ori Young on 11-13-2021 Lymphocytes/100 WBC (Bld) 14.2 % . [facility] MCH Auto (RBC) [Entitic mass ]Ordered By: Ori Young on 11-13-2021 MCH (RBC) [Entitic mass] 29.0 pg 27.5-35.2 [facility] MCHC Auto (RBC) [Mass/Vol]Or dered By: Ori Young on 11-13-2021 MCHC (RBC) [Mass/Vol] 32.4 g/dL 32.5-35.6 [facility] MCV Auto (RBC) [Entitic vol] Ordered By: Ori Young on 11-13-2021 MCV (RBC) [Entitic vol] 89.6 fL 83.5-101 [facility] Monocytes Auto (Bld) [#/Vol] Ordered By: Ori Young on 11-13-2021 Monocytes (Bld) [#/Vol] 0.6 10*3/uL 0.0-0.8 [facility] Monocytes/100 WBC Auto (Bld) Ordered By: Ori Young on 11-13-2021 Monocytes/100 WBC (Bld) 7.2 % . [facility] Neutrophils Auto (Bld) [#/Vo l]Ordered By: Ori Young on 11-13-2021 Neutrophils (Bld) [#/Vol] 5.9 10*3/uL 1.8-7.7 [facility] Neutrophils/100 WBC Auto (Bl d)Ordered By: Ori Young on 11-13-2021 Neutrophils/100 WBC (Bld) 73.4 % . [facility] Platelet mean volume Auto (B ld) [Entitic vol]Ordered By: Ori Young on 11-13-2021 Platelet mean volume (Bld) [Entitic vol] 8.3 fL 6.6-10.1 [facility] Platelet poor plasma interna tional normalized ratio (INR) by coagulation assay (relatOrdered By: Ori Young on 11-13-2021 INR Coag (PPP) [Relative time] 1.3 {INR} [facility] Comment on above: INR Therapeutic Rang e A) Pre- and Peroperative OAT started two weeks before surgery. NOT HIP SURGERY: 1.5 - 2.5 HIP SURGERY: 2 - 3 B) Primary and secondary prevention of venous THROMBOSIS: 2 - 3 C) Active venous thrombosis, pulmonary embolism and prevention of recurrent venous thrombosis: 2 - 3 D) Prevention of arterial thromboembolism including patients with mechanical heart valves: 3 - 4.5 INR Therapeutic Rang e A) Pre- and Peroperative OAT started two weeks before surgery. NOT HIP SURGERY: 1.5 - 2.5 HIP SURGERY: 2 - 3B) Primary and secondary prevention of venous THROMBOSIS: 2 - 3C) Active venous thrombosis, pulmonary embolismand prevention of recurrent venous thrombosis: 2 - 3D) Prevention of arterial thromboembolismincluding patients with mechanical heart valves: 3 - 4.5 Platelets Auto (Bld) [#/Vol] Ordered By: Ori Young on 11-13-2021 Platelets (Bld) [#/Vol] 206 10*3/uL 150-450 [facility] RBC Auto (Bld) [#/Vol]Ordere d By: Ori Young on 11-13-2021 RBC (Bld) [#/Vol] 5.51 10*6/uL 3.90-5.60 [facility] Basophils Auto (Bld) [#/Vol] Ordered By: Tatianna Yee on 11-09-2021 Basophils (Bld) [#/Vol] 0.0 10*3/uL 0.0-0.2 [facility] Basophils/100 WBC Auto (Bld) Ordered By: Tatianna Yee on 11-09-2021 Basophils/100 WBC (Bld) 0.5 % . [facility] Blood hemoglobin measurement (mass/volume)Ordered By: Tatianna Yee on 11-09-2021 Hemoglobin (Bld) [Mass/Vol] 15.9 g/dL 13.0-17.0 [facility] Blood leukocytes automated c ount (number/volume)Ordered By: Tatianna Yee on 11-09-2021 WBC (Bld) [#/Vol] 6.9 10*3/uL 4.5-11.0 [facility] Body fluid albumin measureme nt (mass/volume)Ordered By: Tatianna Yee on 11-09-2021 Albumin (Body fld) [Mass/Vol] 3.5 g/dL 3.2-5.5 [facility] COVID-19 Positive/NegativeOr dered By: Ori Young on 11-09-2021 SARS-CoV-2 (COVID-19) N gene HAJA+probe Ql (Resp) Negative Negative [facility] Comment on above: Testing for SARS-CoV -2 by RT-PCR This test was developed and its performance characteristics determined by [employer] ([employer] and validated at the [facility]. This test has not been FDA cleared or approved. This test has been authorized by FDA under an Emergency Use Authorization (EUA). This test has been validated in accordance with the FDA's Guidance Document (Policy for Diagnostics Testing in Laboratories Certified to Perform High Complexity Testing under CLIA prior to Emergency Use Authorization for Coronavirus Disease-2019 during the Public Health Emergency) issued on June 25, 2019. This test is only authorized for the duration of time the declaration that circumstances exist justifying the authorization of the emergency use of in vitro diagnostic tests for detection of SARS-CoV-2 virus and/or diagnosis of COVID-19 infection under section 564(b)(1) of the Act, 21 U.S.C. 360bbb-3(b)(1), unless the authorization is terminated or revoked sooner. Testing for SARS-CoV -2 by RT-PCRThis test was developed and its performance characteristics determined by [employer] ([employer]) and validated at the [facility]. This test has not been FDA cleared or approved. This test has been authorized by FDA under an Emergency Use Authorization (EUA). This test has been validated in accordance with the FDA's Guidance Document (Policy for Diagnostics Testing in Laboratories Certified to Perform High Complexity Testing under CLIA prior to Emergency Use Authorization for Coronavirus Disease-2019 during the Public Health Emergency) issued on June 25, 2019. This test is only authorized for the duration of time the declaration that circumstances exist justifying the authorization of the emergency use of in vitro diagnostic tests for detection of SARS-CoV-2 virus and/or diagnosis of COVID-19 infection under section 564(b)(1) of the Act, 21 U.S.C. 360bbb-3(b)(1), unless the authorization is terminated or revoked sooner. Cholesterol [Mass/volume] in Serum or PlasmaOrdered By: Tatianna Yee on 11-09-2021 Cholesterol [Mass/Vol] 146 mg/dL 140-200 [facility] Comment on above: Chol less than 200 m g/dl low risk Chol 201-239 mg/dl borderline risk Chol 240 mg/dl and greater high risk Chol less than 200 m g/dl low riskChol 201-239 mg/dl borderline riskChol 240 mg/dl and greater high risk Cholesterol in LDL Calc [Mas s/Vol]Ordered By: Tatianna Yee on 11-09-2021 Cholesterol in LDL [Mass/Vol] 79 mg/dL 0-100 [facility] Comment on above: LDL ATP III CLASSIFI CATION LDL less than 100 mg/dL Optimal LDL 100-129 mg/dL Near or above optimal LDL 130-159 mg/dL Borderline high LDL 160-189 mg/dL High LDL greater than 189 mg/dL Very high LDL ATP III CLASSIFI CATIONLDL less than 100 mg/dL OptimalLDL 100-129 mg/dL Near or above optimalLDL 130-159 mg/dL Borderline highLDL 160-189 mg/dL HighLDL greater than 189 mg/dL Very high Cholesterol in VLDL Calc [Ma ss/Vol]Ordered By: Tatianna Yee on 11-09-2021 Cholesterol in VLDL [Mass/Vol] 31 mg/dL [facility] Creatinine and Glomerular fi ltration rate.predicted panel (S/P/Bld)Ordered By: Tatianna Yee on 11-09-2021 Creatinine [Mass/Vol] 1.14 mg/dL 0.64-1.27 [facility] Eosinophils Auto (Bld) [#/Vo l]Ordered By: Tatianna Yee on 11-09-2021 Eosinophils (Bld) [#/Vol] 0.4 10*3/uL 0.0-0.45 [facility] Eosinophils/100 WBC Auto (Bl d)Ordered By: Tatianna Yee on 11-09-2021 Eosinophils/100 WBC (Bld) 5.9 % . [facility] Erythrocyte distribution wid th Auto (RBC) [Ratio]Ordered By: Tatianna Yee on 11-09-2021 Erythrocyte distribution width (RBC) [Ratio] 15.4 % 12.0-14.8 [facility] Estimated glomerular filtrat ion rate (GFR) non- AmericanOrdered By: Tatianna Yee on 11-09-2021 GFR/1.73 sq M.predicted among non-blacks MDRD (S/P/Bld) [Vol rate/Area] > 60 mL/Min [facility] Globulin Calc (S) [Mass/Vol] Ordered By: Tatianna Yee on 11-09-2021 Globulin (S) [Mass/Vol] 3.4 g/dL [facility] Hematocrit Auto (Bld) [Volum e fraction]Ordered By: Tatianna Yee on 11-09-2021 Hematocrit (Bld) [Volume fraction] 49.8 % 38.8-50.0 [facility] Laboratory - Hematology and Cell countsOrdered By: Tatianna Yee on 11-09-2021 Nucleated RBC/100 WBC (Bld) [Ratio] 0.1 % 0-0.5 [facility] Lymphocytes Auto (Bld) [#/Vo l]Ordered By: Tatianna Yee on 11-09-2021 Lymphocytes (Bld) [#/Vol] 1.2 10*3/uL 1.00-4.8 [facility] Lymphocytes/100 WBC Auto (Bl d)Ordered By: Tatianna Yee on 11-09-2021 Lymphocytes/100 WBC (Bld) 17.3 % . [facility] MCH Auto (RBC) [Entitic mass ]Ordered By: Tatianna Yee on 11-09-2021 MCH (RBC) [Entitic mass] 28.8 pg 27.5-35.2 [facility] MCHC Auto (RBC) [Mass/Vol]Or dered By: Tatianna Yee on 11-09-2021 MCHC (RBC) [Mass/Vol] 31.8 g/dL 32.5-35.6 [facility] MCV Auto (RBC) [Entitic vol] Ordered By: Tatianna Yee on 11-09-2021 MCV (RBC) [Entitic vol] 90.6 fL 83.5-101 [facility] Monocytes Auto (Bld) [#/Vol] Ordered By: Tatianna Yee on 11-09-2021 Monocytes (Bld) [#/Vol] 0.6 10*3/uL 0.0-0.8 [facility] Monocytes/100 WBC Auto (Bld) Ordered By: Tatianna Yee on 11-09-2021 Monocytes/100 WBC (Bld) 8.9 % . [facility] Neutrophils Auto (Bld) [#/Vo l]Ordered By: Tatianna Yee on 11-09-2021 Neutrophils (Bld) [#/Vol] 4.6 10*3/uL 1.8-7.7 [facility] Neutrophils/100 WBC Auto (Bl d)Ordered By: Tatianna Yee on 11-09-2021 Neutrophils/100 WBC (Bld) 67.4 % . [facility] No Panel InformationOrdered By: Tatianna Yee on 11-09-2021 Estimated GFR () > 60 mL/Min [facility] Comment on above: GFR estimated refere nce range: According to KDOQI guidelines, <60 ml/min/1.73m2 is sufficient to diagnose a patient with chronic kidney disease. Pharmacy Creatinine Clearance (Chem N/A [facility] Platelet mean volume Auto (B ld) [Entitic vol]Ordered By: Tatianna Yee on 11-09-2021 Platelet mean volume (Bld) [Entitic vol] 8.7 fL 6.6-10.1 [facility] Platelets Auto (Bld) [#/Vol] Ordered By: Tatianna Yee on 11-09-2021 Platelets (Bld) [#/Vol] 215 10*3/uL 150-450 [facility] Protein [Mass/volume] in Ser um or PlasmaOrdered By: Tatianna Yee on 11-09-2021 Protein [Mass/Vol] 6.9 g/dL 6.1-7.9 [facility] RBC Auto (Bld) [#/Vol]Ordere d By: Tatianna Yee on 11-09-2021 RBC (Bld) [#/Vol] 5.50 10*6/uL 3.90-5.60 [facility] Serum or plasma alanine lombardi otransferase measurement without P-5'-P (enzymatic activiOrdered By: Tatianna Yee on 11-09-2021 ALT No additional P-5'-P [Catalytic activity/Vol] 22 U/L 10-60 [facility] Serum or plasma albumin/glob ulin mass ratioOrdered By: Tatianna Yee on 11-09-2021 Albumin/Globulin [Mass ratio] 1.0 {ratio} [facility] Serum or plasma alkaline hamilton sphatase measurement (enzymatic activity/volume)Ordered By: Tatianna Yee on 11-09-2021 ALP [Catalytic activity/Vol] 84 U/L 32-92 [facility] Serum or plasma aspartate am inotransferase measurement (enzymatic activity/volume)Ordered By: Tatianna Yee on 11-09-2021 AST [Catalytic activity/Vol] 23 U/L 10-42 [facility] Serum or plasma calcium tamia urement (mass/volume)Ordered By: Tatianna Yee on 11-09-2021 Calcium [Mass/Vol] 8.9 mg/dL 8.2-10.2 [facility] Serum or plasma chloride leonor surement (moles/volume)Ordered By: Tatianna Yee on 11-09-2021 Chloride [Moles/Vol] 94 mmol/L 95-114 [facility] Serum or plasma glucose tamia urement (mass/volume)Ordered By: Tatianna Yee on 11-09-2021 Glucose [Mass/Vol] 122 mg/dL 70-100 [facility] Comment on above: ADA recommended refe rence range Random Glucose Reference Range is dependent on time and content of last meal. Glucose of more than 200 mg/dL in a nonstressed, ambulatory subject supports the diagnosis of Diabetes Mellitus. ADA recommended refe rence rangeRandom Glucose Reference Range is dependent on time and content of last meal. Glucose of more than 200 mg/dL in a nonstressed, ambulatory subject supports the diagnosis of Diabetes Mellitus. Serum or plasma high density lipoprotein (HDL) cholesterol measurementOrdered By: Tatianna Yee on 11-09-2021 Cholesterol in HDL [Mass/Vol] 36 mg/dL 29-71 [facility] Comment on above: HDL CHOL ATP-III CLA SSIFICATION Cardiovascular Risk HDL > or equal to 60 mg/dL LOW HDL < 40 mg/dL HIGH HDL CHOL ATP-III CLA SSIFICATION Cardiovascular RiskHDL > or equal to 60 mg/dL LOWHDL < 40 mg/dL HIGH Serum or plasma potassium me asurement (moles/volume)Ordered By: Tatianna Yee on 11-09-2021 Potassium [Moles/Vol] 4.2 mmol/L 3.5-5.1 [facility] Serum or plasma sodium measu rement (moles/volume)Ordered By: Tatianna Yee on 11-09-2021 Sodium [Moles/Vol] 139 mmol/L 136-146 [facility] Serum or plasma total biliru bin measurement (mass/volume)Ordered By: Tatianna Yee on 11-09-2021 Bilirubin [Mass/Vol] 1.3 mg/dL 0.3-1.2 [facility] Comment on above: Samples from patient s who have taken Naproxen have shown spurious elevation in Total Bilirubin levels. A metabolite of Naproxen, O-desmethylnaproxen, has been shown to interfere with the [place] method for measuring Total Bilirubin. Serum or plasma total carbon dioxide measurement (moles/volume)Ordered By: Tatianna Yee on 11-09-2021 CO2 [Moles/Vol] 35.5 mmol/L 22.0-30.0 [facility] Serum or plasma total choles terol/high density lipoprotein (HDL) cholesterol mass ratOrdered By: Tatianna Yee on 11-09-2021 Cholesterol.total/Chol esterol in HDL [Mass ratio] 4.1 {ratio} <5.0 [facility] Serum or plasma urea nitroge n measurement (mass/volume)Ordered By: Tatianna Yee on 11-09-2021 Urea nitrogen [Mass/Vol] 13 mg/dL 9-23 [facility] Triglyceride [Mass/volume] i n Serum or PlasmaOrdered By: Tatianna Yee on 11-09-2021 Triglyceride [Mass/Vol] 157 mg/dL 35-149 [facility] Comment on above: TRIG ATP III CLASSIF ICATION TRIG less than 150 mg/dL Normal TRIG 150-199 mg/dL Borderline high TRIG 200-500 mg/dL High TRIG greater than 500 mg/dL Very high Standard traceable to the Center for Disease Conrtrol and Prevention (CDC) test method. TRIG ATP III CLASSIF ICATIONTRIG less than 150 mg/dL NormalTRIG 150-199 mg/dL Borderline highTRIG 200-500 mg/dL High TRIG greater than 500 mg/dL Very highStandard traceable to the Center for Disease Conrtrol and Prevention (CDC) test method. Laboratory - Coagulationon 0 11-02-2021 INR Coag (Bld) [Relative time] 2.3 {INR} [facility] 250 DO Work Phone: A1C HEMOGLOBINon 10-17-2021 HbA1c (Bld) [Mass fraction] 6.3 % [facility] [employer] Other HbA1c (Bld) [Mass fraction]o n 10-17-2021 A1C HEMOGLOBIN [facility] [employer] Other Laboratory - Coagulationon 0 07-11-2021 INR Coag (Bld) [Relative time] 3.2 {INR} [facility] Tucker Johnson DO Work Phone: No Panel Informationon 07-11 3.2\S\3.2 Normal [facility] Tucker Johnson DO Work Phone: Comment on above: INR Therapeutic Rang e A) Pre- and Peroperative OAT started two weeks before surgery. NOT HIP SURGERY: 1.5 - 2.5 HIP SURGERY: 2 - 3 B) Primary and secondary prevention of venous THROMBOSIS: 2 - 3 C) Active venous thrombosis, pulmonary embolism and prevention of recurrent venous thrombosis: 2 - 3 D) Prevention of arterial thromboembolism including patients with mechanical heart valves: 3 - 4.5PERFORMED BY:[facility] [place], [place] [id number] MEDICAL DIRECTORCATE DOBBS M.D. 36.5\S\36.5 above high threshold 9.0-12.9 [facility] Tucker Johnson DO Work Phone: Tobacco Screening.on 022 Adult depression screening assessment No [facility] Tucker Johnson DO Work Phone: Fall risk assessment a) No falls within the last year [facility] Work Phone: Tobacco use status CPHS b) No [facility] Tucker Johnson DO Work Phone: Laboratory - Coagulationon 0 06-15-2021 INR Coag (Bld) [Relative time] 2.08 {INR} [facility] Work Phone: Laboratory - Coagulationon 0 06-01-2021 INR Coag (Bld) [Relative time] 1.26 {INR} -[facility] DO Work Phone: Laboratory - Coagulationon 1 05-03-2020 INR Coag (Bld) [Relative time] 3.05 {INR} [facility] DO Work Phone: PT/INRon 08-04-2019 INR Coag (PPP) [Relative time] 3.0 {INR} High 0.9 - 1.1 [facility] Comment on above: Performed By: #### P TINR #### [address] [address] PT Coag (PPP) [Time] 35.1 s High 9.7 - 12.7 [facility] Comment on above: Performed By: #### P TINR #### [address] [address] PT/INRon 02-10-2019 INR Coag (PPP) [Relative time] 3.9 {INR} High 0.9 - 1.1 [facility] Comment on above: Performed By: #### P TINR #### [address] [address] PT Coag (PPP) [Time] 45.4 s High 9.7 - 12.7 [facility] Comment on above: Performed By: #### P TINR #### [address] [address] BASIC METABOLIC PANELon 10-2 Anion gap [Moles/Vol] 17 mmol/L Normal 10 - 20 [facility] Comment on above: Performed By: #### B MP #### [address] [address] Calcium [Mass/Vol] 9.5 mg/dL Normal 8.6 - 10.3 [facility] Comment on above: Performed By: #### B MP #### [address] [address] Chloride [Moles/Vol] 91 mmol/L Low 98 - 107 [facility] Comment on above: Performed By: #### B MP #### [address] [address] Creatinine [Mass/Vol] 1.39 mg/dL High 0.50 - 1.30 [facility] Comment on above: Performed By: #### B MP #### [address] [address] GFR- AM. 61 mL/min/1.73m2 Normal >60 [facility] Comment on above: Result Comment: CALC ULATIONS OF ESTIMATED GFR ARE PERFORMED USING THE MDRD STUDY EQUATION FOR THE IDMS-TRACEABLE CREATININE METHODS. CLIN CHEM 2007;53:766-72 Performed By: #### B MP #### [address] [address] GFR-NON AM. 50 mL/min/1.73m2 Abnormal >60 [facility] Comment on above: Performed By: #### B MP #### [address] [address] Glucose [Mass/Vol] 104 mg/dL High 74 - 99 [facility] Comment on above: Performed By: #### B MP #### [address] [address] HCO3 (Bld) [Moles/Vol] 35 mmol/L High 21 - 32 [facility] Comment on above: Performed By: #### B MP #### [address] [address] Potassium [Moles/Vol] 4.1 mmol/L Normal 3.5 - 5.3 [facility] Comment on above: Performed By: #### B MP #### [address] [address] Sodium [Moles/Vol] 139 mmol/L Normal 136 - 145 [facility] Comment on above: Performed By: #### B MP #### [address] [address] Urea nitrogen [Mass/Vol] 24 mg/dL High 6 - 23 [facility] Comment on above: Performed By: #### B MP #### [address] [address] PT/INRon 01-20-2019 INR Coag (PPP) [Relative time] 2.1 {INR} High 0.9 - 1.1 [facility] Comment on above: Performed By: #### P TINR #### [address] [place] [address] PT Coag (PPP) [Time] 23.6 s High 9.7 - 12.7 [facility] Comment on above: Performed By: #### P TINR #### [address] [place] [address] PT/INRon 12-23-2018 INR Coag (PPP) [Relative time] 2.7 {INR} High 0.9 - 1.1 [facility] Comment on above: Performed By: #### P TINR #### [address] [place] [address] PT Coag (PPP) [Time] 31.5 s High 9.7 - 12.7 [facility] Comment on above: Performed By: #### P TINR #### [address] [place] [address] PT/INRon 10-28-2018 INR Coag (PPP) [Relative time] 3.6 {INR} High 0.9 - 1.1 [facility] Comment on above: Performed By: #### P TINR #### [address] [place] [address] PT Coag (PPP) [Time] 41.6 s High 9.7 - 12.7 [facility] Comment on above: Performed By: #### P TINR #### [address] [place] [address] PT/INRon 08-25-2018 INR Coag (PPP) [Relative time] 1.1 {INR} Normal 0.9 - 1.1 [facility] Comment on above: Performed By: #### P TINR #### [address] [address] PT Coag (PPP) [Time] 12.6 s Normal 9.7 - 12.7 [facility] Comment on above: Performed By: #### P TINR #### [address] [address] PT/INRon 08-11-2018 INR Coag (PPP) [Relative time] 1.0 {INR} Normal 0.9 - 1.1 [facility] Comment on above: Performed By: #### P TINR #### [address] [address] PT Coag (PPP) [Time] 11.7 s Normal 9.7 - 12.7 [facility] Comment on above: Performed By: #### P TINR #### [address] [address] Vital Signs Date Time Vital Sign Value Performing Clinician Facility 07-29-2023 17:44-0400 Diastolic blood pressure 73 mm[Hg] DO Tatianna Schwerer Work Phone: [facility] 07-29-2023 17:44-0400 Heart rate 82 /min DO Tatianna Schwerer Work Phone: [facility] 07-29-2023 17:44-0400 Respiratory rate 17 /min DO Tatianna Schwerer Work Phone: [facility] 07-29-2023 17:44-0400 SaO2% (BldA) [Mass fraction] 95 % DO Tatianna Schwerer Work Phone: [facility] 07-29-2023 17:44-0400 Systolic blood pressure 130 mm[Hg] DO Tatianna Schwerer Work Phone: [facility] 07-29-2023 17:23-0400 Body temperature 98.6 [degF] DO Tatianna Schwerer Work Phone: [facility] 07-29-2023 17:23-0400 Inhaled oxygen flow rate 2 L/min DO Tatianna Schwerer Work Phone: [facility] 07-29-2023 10:14-0400 Body height 182.88 cm DO Tatianna Schwerer Work Phone: [facility] 07-29-2023 10:14-0400 Body weight 111.13 kg DO Tatianna Schwerer Work Phone: [facility] 01-09-2023 11:00-0400 Body height 185.42 cm Franny Rosey Other [facility] Other 01-09-2023 11:00-0400 Body mass index (BMI) [Ratio] 31.79 kg/m2 Franny Rosey Other [facility] Other 01-09-2023 11:00-0400 Body temperature 97 [degF] Franny Rosey Other [facility] Other 01-09-2023 11:00-0400 Body weight 109.32 kg Franny Rosey Other [facility] Other 01-09-2023 11:00-0400 Diastolic blood pressure 76 mm[Hg] Franny Rosey Other [facility] Other 01-09-2023 11:00-0400 Respiratory rate 20 /min Franny Rosey Other [facility] [facility] Other 01-09-2023 11:00-0400 SaO2% (BldA) [Mass fraction] Franny Rosey Other [facility] [facility] Other 01-09-2023 11:00-0400 Systolic blood pressure 128 mm[Hg] Franny Currie Other [employer] Other 08-06-2022 09:58-0400 Body height 182.88 cm Tatianna Ivy Schwerer Work Phone: [facility] 250 DO Work Phone: 08-06-2022 09:58-0400 Body mass index (BMI) [Ratio] 33.5 kg/m2 Tatianna E Schwerer Work Phone: [facility] 250 DO Work Phone: 08-06-2022 09:58-0400 Body surface area Derived from formula 2.33 m2 Tatianna Cata Schwerer Work Phone: [facility] 250 DO Work Phone: 08-06-2022 09:58-0400 Body weight 112.04 kg Tatianna E Schwerer Work Phone: [facility] 250 DO Work Phone: 08-06-2022 09:58-0400 Diastolic blood pressure 78 mm[Hg] Tatianna E Schwerer Work Phone: [facility] 250 DO Work Phone: 08-06-2022 09:58-0400 Heart rate 52 /min Tatianna E Schwerer Work Phone: [facility] 250 DO Work Phone: 08-06-2022 09:58-0400 Systolic blood pressure 124 mm[Hg] Tatianna E Schwerer Work Phone: [facility] 250 DO Work Phone: 01-29-2022 10:30-0500 Body height 185.42 cm Ori Young Other [employer] [facility] Other 01-29-2022 10:30-0500 Body mass index (BMI) [Ratio] 32.58 kg/m2 Ori Young Other [employer] [facility] Other 01-29-2022 10:30-0500 Body weight 112.04 kg Ori Young Other [facility] [facility] Other 01-23-2022 14:00-0400 Body mass index (BMI) [Ratio] 32.61 kg/m2 Tatianna Schwerer Other [facility] [facility] Other 01-23-2022 14:00-0400 Body weight 112.13 kg Tatianna Schwerer Other [facility] Other 01-23-2022 14:00-0400 Diastolic blood pressure 90 mm[Hg] Tatianna Schwerer Other [facility] [facility] Other 01-23-2022 14:00-0400 Systolic blood pressure 140 mm[Hg] Tatianna Schwerer Other [facility] [facility] Other 01-23-2022 11:30-0400 Body height 185.42 cm Franny Rosey Other [employer] [facility] Other 01-23-2022 11:30-0400 Body mass index (BMI) [Ratio] 32.58 kg/m2 Franny Rosey Other [facility] [facility] Other 01-23-2022 11:30-0400 Body temperature 96.5 [degF] Franny Rosey Other [employer] [facility] Other 01-23-2022 11:30-0400 Body weight 112.04 kg Franny Rosey Other [facility] [employer] Other 01-23-2022 11:30-0400 Diastolic blood pressure 83 mm[Hg] Franny Rosey Other [employer] [facility] Other 01-23-2022 11:30-0400 Respiratory rate 20 /min Franny Rosey Other [employer] [facility] Other 01-23-2022 11:30-0400 SaO2% (BldA) [Mass fraction] Franny Rosey Other [employer] [facility] Other 01-23-2022 11:30-0400 Systolic blood pressure 132 mm[Hg] Franny Rosey Other [employer] [facility] Other 11-13-2021 11:05-0400 Diastolic blood pressure 59 mm[Hg] DO Tatianna Schwerer Work Phone: [facility] 11-13-2021 11:05-0400 Heart rate 71 /min DO Tatianna Schwerer Work Phone: [facility] 11-13-2021 11:05-0400 Respiratory rate 18 /min DO Tatianna Schwerer Work Phone: [facility] 11-13-2021 11:05-0400 SaO2% (BldA) [Mass fraction] 100 % DO Tatianna Schwerer Work Phone: [facility] 11-13-2021 11:05-0400 Systolic blood pressure 117 mm[Hg] DO Tatianna Schwerer Work Phone: [facility] 11-13-2021 09:21-0400 Body height 182.88 cm DO Tatianna Schwerer Work Phone: [facility] 11-13-2021 09:21-0400 Body temperature 98 [degF] DO Tatianna Schwerer Work Phone: [facility] 11-13-2021 09:21-0400 Body weight 108.86 kg DO Tatianna Schwerer Work Phone: [facility] 11-13-2021 09:21-0400 Inhaled oxygen flow rate 3 L/min DO Tatianna Schwerer Work Phone: [facility] 10-17-2021 15:30-0400 Body height 185.42 cm Tatianna Schwerer Other [employer] [facility] Other 10-17-2021 15:30-0400 Body mass index (BMI) [Ratio] 32.12 kg/m2 Tatianna Schwerer Other [employer] [facility] Other 10-17-2021 15:30-0400 Body temperature 96 [degF] Tatianna Schwerer Other [employer] [facility] Other 10-17-2021 15:30-0400 Body weight 110.45 kg Tatianna Schwerer Other [employer] [facility] Other 10-17-2021 15:30-0400 Diastolic blood pressure 80 mm[Hg] Tatianna Schwerer Other [employer] [facility] Other 10-17-2021 15:30-0400 SaO2% (BldA) [Mass fraction] Tatianna Schwerer Other [employer] [facility] Other 10-17-2021 15:30-0400 Systolic blood pressure 118 mm[Hg] Tatianna Schwerer Other [employer] [facility] Other 07-25-2021 11:30-0400 Body height 185.42 cm Franny Rosey Other [employer] [facility] Other 07-25-2021 11:30-0400 Body mass index (BMI) [Ratio] 32.98 kg/m2 Franny Rosey Other [facility] [facility] Other 07-25-2021 11:30-0400 Body temperature 96.8 [degF] Franny Rosey Other [employer] [facility] Other 07-25-2021 11:30-0400 Body weight 113.4 kg Franny Rosey Other [employer] [facility] Other 07-25-2021 11:30-0400 Diastolic blood pressure 75 mm[Hg] Franny Rosey Other [employer] [facility] Other 07-25-2021 11:30-0400 Respiratory rate 20 /min Franny Rosey Other [employer] [facility] Other 07-25-2021 11:30-0400 SaO2% (BldA) [Mass fraction] Franny Rosey Other [employer] [facility] Other 07-25-2021 11:30-0400 Systolic blood pressure 120 mm[Hg] Franny Rosey Other [employer] [facility] Other 07-11-2021 11:00-0400 Body height 182.88 cm Tatianna Yee Work Phone: [facility] [employer] 250 DO Work Phone: 07-11-2021 11:00-0400 Body mass index (BMI) [Ratio] 33.91 kg/m2 Tatianna Ivy Lucky Anterer Work Phone: [facility] 250 DO Work Phone: 07-11-2021 11:00-0400 Body surface area Derived from formula 2.34 m2 Tatianna Cata Schwerer Work Phone: [facility] 250 DO Work Phone: 07-11-2021 11:00-0400 Body weight 113.4 kg Tatianna E Schwerer Work Phone: [facility] 250 DO Work Phone: 07-11-2021 11:00-0400 Diastolic blood pressure 72 mm[Hg] Tatianna E Schwerer Work Phone: [facility] 250 DO Work Phone: 07-11-2021 11:00-0400 Heart rate 80 /min Tatianna Cata Schwerer Work Phone: [facility] 250 DO Work Phone: 07-11-2021 11:00-0400 Systolic blood pressure 108 mm[Hg] Tatianna Cata Schwerer Work Phone: [facility] 250 DO Work Phone: 01-24-2021 11:30-0400 Body height 185.42 cm Franny Rosey Other [employer] [facility] Other 01-24-2021 11:30-0400 Body mass index (BMI) [Ratio] 32.06 kg/m2 Franny Rosey Other [employer] [facility] Other 01-24-2021 11:30-0400 Body temperature 97.5 [degF] Franny Rosey Other [employer] [facility] Other 01-24-2021 11:30-0400 Body weight 110.22 kg Franny Rosey Other [employer] [facility] Other 01-24-2021 11:30-0400 Diastolic blood pressure 80 mm[Hg] Franny Rosey Other [facility] [employer] Other 01-24-2021 11:30-0400 Respiratory rate 20 /min Franny Rosey Other [employer] Other 01-24-2021 11:30-0400 SaO2% (BldA) [Mass fraction] Franny Rosey Other [facility] [facility] Other 01-24-2021 11:30-0400 Systolic blood pressure 127 mm[Hg] Franny Rosey Other [employer] Other Encounters Encounter Date Encounter Type Care Provider Facility Start: 07-29-2023 End: 07-29-2023 Emergency department patient visit Santy Mayfield Facility:[facility] Start: 07-29-2023 End: 07-29-2023 Emergency department patient visit DO Tatianna Yee Work Phone: [facility] Work Phone: Start: 06-18-2023 [facility] Start: 05-23-2023 End: 05-24-2023 ambulatory [facility] Facility:[facility] Start: 05-09-2023 End: 05-10-2023 ambulatory [facility] Facility:[facility] Start: 05-02-2023 Telephone encounter Tatianna Yee [facility] Start: 05-02-2023 End: 05-03-[address] [facility] Other Start: 04-25-2023 End: 04-25-2023 ambulatory Tatianna Yee Other [facility] Other Start: 04-25-2023 Telephone encounter Tatianna Schwerer [facility] [place] Start: 04-01-2023 End: 04-01-2023 ambulatory Tatianna Schwerer Other [facility] [facility] Other Start: 04-01-2023 Telephone encounter Tatianna Schwerer [facility] [place] Start: 03-28-2023 End: 03-29-2023 ambulatory Tatianna E Schwerer [facility] Start: 2023 End: 2023 ambulatory Tatianna Schwerer Other [employer] [facility] Other Start: 2023 Telephone encounter Tatianna Schwerer [facility] [place] Start: 03-07-2023 End: 2023 ambulatory Tatianna E Schwerer [facility] Start: 02-21-2023 Telephone encounter Tatianna Schwerer [facility] Start: 02-21-2023 End: 02-22-2023 ambulatory Tatianna E Schwerer [employer] Other Start: 01-22-2023 End: 01-22-2023 ambulatory Tatianna Schwerer Other [facility] Other Start: 01-22-2023 Telephone encounter Tatianna Schwerer [facility] [place] Start: 01-09-2023 End: 01-09-2023 ambulatory Franny Rosey Other [employer] [facility] Other Start: 01-09-2023 Office outpatient visit 25 minutes Franny Rosey [facility] Start: 12-06-2022 End: 12-07-2022 ambulatory Tatianna E Schwerer [facility] Start: 11-01-2022 ambulatory W CARIE GAN [facility] ity:[facility] Start: 10-23-2022 End: 10-24-2022 ambulatory W CARIE GAN [facility] Start: 09-27-2022 End: 09-28-2022 ambulatory Estrellita GAN [facility] Start: 09-14-2022 Rx Renewal Tatianna E Schw erer Work Phone: [facility] 250 DO Work Phone: Start: 08-29-2022 Rx Renewal Tatianna E Schw erer Work Phone: [facility] 250 DO Work Phone: Start: 08-09-2022 End: 08-10-2022 ambulatory None Provider [facility] Start: 08-06-2022 Office outpatient visit 25 minutes [facility]na E [facility] Work Phone: Start: 08-06-[address] Dannielle sloan [facility] Facility: Start: 07-11-2022 End: 07-11-2022 ambulatory Saran Slaughter Other [facility] [employer] Other Start: 07-11-2022 Telephone encounter Saran Jiménez [facility] Start: 05-25-2022 Chart Update Tatianna E Schw erer [facility] Work Phone: Start: 05-24-2022 End: 05-24-2022 ambulatory DO Tatianna E Schwerer Work Phone: [facility] Work Phone: Start: 05-24-2022 End: 05-24-2022 Patient encounter procedure DO Tatianna Schwerer Work Phone: [facility] [place] Work Phone: Start: 05-17-2022 Rx Renewal Tatianna E Schw erer Work Phone: [facility] 250 DO Work Phone: Start: 05-16-2022 Rx Renewal Tatianna E Schw erer Work Phone: [facility] 250 DO Work Phone: Start: 03-22-2022 Telephone encounter Tatianna E Schwerer Work Phone: [facility] 600 DO Work Phone: Start: 01-29-2022 Chart Update Tatianna E Schw erer Work Phone: [facility] 250 DO Work Phone: Start: 01-29-2022 End: 01-29-2022 Patient encounter procedure Ori Young [facility] Start: 01-29-2022 End: 01-29-2022 ambulatory DO Tatianna E Schwerer Work Phone: [employer] [facility] Other Start: 01-23-2022 End: 01-23-2022 ambulatory Franny Rosey Other [employer] Other Start: 01-23-2022 Office outpatient visit 25 minutes Franny Rosey [facility] Start: 01-23-2022 Patient encounter procedure Tatianna rBagar [facility] Start: 12-27-2021 End: 12-27-2021 ambulatory Tatianna Schwerer Other [employer] Other Start: 12-27-2021 Telephone encounter Tatianna Bragar [facility] Start: 12-06-2021 Chart Update [facility] E Schw [facility] Work Phone: Start: 12-04-2021 End: 12-04-2021 Patient encounter procedure DO Tatianna Schwerer Work Phone: [facility] [place] Start: 11-27-2021 End: 11-27-2021 ambulatory Tatianna Yee Other [employer] [facility] Other Start: 11-27-2021 Encounter by compute r link Tatianna Nakia [facility] [place] Start: 11-22-2021 Rx Renewal Tatiannaamber Laboy ereurdi Work Phone: -[facility] 250 DO Work Phone: Start: 11-14-2021 End: 11-14-2021 ambulatory Ori Young Other [employer] Other Start: 11-14-2021 Encounter by [employer] Ori Young [facility] G[facility]enter[facility] Start: 11-13-2021 End: 11-13-2021 Admission to same day surgery center DO Tatianna Yee Work Phone: [facility] Start: 11-09-2021 End: 11-09-2021 Patient encounter procedure DO Tatianna Yee Work Phone: [facility] Start: 10-23-2021 End: 10-23-2021 ambulatory Ori Young Other [employer] [facility] Other Start: 10-23-2021 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 encounter 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 Start: 10-20-2021 End: 10-20-2021 ambulatory Ori Yougn Other [employer] [facility] Other Start: 10-20-2021 Telephone encounter 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 Start: 10-17-2021 End: 10-17-2021 ambulatory Tatiannaamber Yee Other [employer] [facility] Other Start: 10-17-2021 Office outpatient visit 25 minutes Tatianna Schwerer [facility] Start: 09-19-2021 Rx Renewal Tatianna E Schw erer Work Phone: [facility] 250 DO Work Phone: Start: 08-01-2021 Rx Renewal Tatianna E Schw erer Work Phone: [facility] 250 DO Work Phone: Start: 07-25-2021 End: 07-25-2021 ambulatory Franny Rosey Other [employer] [facility] Other Start: 07-25-2021 Office outpatient visit 25 minutes Franny Rosey [facility] Start: 07-11-2021 Patient encounter procedure Tatianna Ivy Schwerer Work Phone: [facility] 250 DO Work Phone: Start: 06-26-2021 Rx Renewal Randy fairchild Work Phone: [facility] 250 DO Work Phone: Start: 03-15-2021 Patient encounter procedure Randy Santana Work Phone: [facility] 250 DO Work Phone: Start: 01-24-2021 End: 01-24-2021 ambulatory Franny Rosey Other [employer] Other Start: 01-24-2021 Office outpatient visit 25 minutes Franny Rosey [facility] Start: 06-17-2018 Patient encounter procedure DANNIELLE GAN Facility:[id number] Procedures Date Procedure Procedure Detail Performing Clinician Start: 07-29-2023 CT of hip DO Tatianna Schwerer Work Phone: Start: 07-29-2023 Duplex scan of lower limb veins DO Tatianna Schwerer Work Phone: Start: 07-29-2023 Plain X-ray of left hip DO Tatianna Schwerer Work Phone: Start: 11-13-2021 Esophagogastroduodenoscopy DO Tatianna Schwerer Work Phone: Appendectomy Randy Nice er Work Phone: Operation on colon Randy Higginbotham allchrist[employer] Work Phone: Tonsillectomy Randy Reynolds her Work Phone: Total colonoscopy Randy schumacher Work Phone: Comment on above: [id number]; Plan of Treatment Date Care Activity Detail Author Start: 08-12-2023 FUV, Provider: Dannielle Gan, Status: Pen, Time: 10:40 AM FUV, Provider: Dannielle Gan, Status: Pen, Time: 10:40 AM -[facility] 250 DO Work Phone: Start: 07-24-2022 FUV, Provider: Dannielle Gan, Status: Pen, Time: 11:10 AM FUV, Provider: Dannielle Gan, Status: Pen, Time: 11:10 AM -[facility] [employer] 250 DO Work Phone: Start: 11-13-2021 [facility] Start: 11-13-2021 Esophagogastroduodenoscopy DH EGD/Colonoscopy (Not Applicable) [facility] Start: 11-13-2021 End: 11-13-2021 Admission to same day surgery center Departed Surgical Day Care [facility] Start: 07-11-2021 FUV, Provider: Dannielle Gan, Status: Pen, Time: 10:45 AM FUV, Provider: Dannielle Gan, Status: Pen, Time: 10:45 AM -[facility] 250 DO Work Phone: Patient Education [facility] Work Phone: Patient referral [facility] Work Phone: Immunizations Immunization Date Immunization Notes Care Provider Fa raquel 01-23-2022 Prevnar 20 Franny Rosey Other [facility] 01-23-2022 influenza, high dose seasonal, preservative-free Franny Rosey Other [facility] [employer] Other 01-23-2022 Fluzone High-Dose Quadrivalent 0.7 ML Intramuscular Suspension Prefilled Syringe Tatianna E Schwerer Work Phone: [facility] 250 DO Work Phone: 01-23-2022 influenza virus vaccine, unspecified formulation DO Tatianna Schwerer Work Phone: [facility] 01-27-2021 Moderna COVID-19 Vaccine 100 MCG/0.5ML Intramuscular Suspension Tatianna E Schwerer Work Phone: [facility] 12-13-2020 influenza virus vaccine, unspecified formulation DO Tatianna Schwerer Work Phone: [facility] 12-13-2020 influenza, high dose seasonal, preservative-free Franny Rosey Other [facility] [employer] Other 05-24-2020 COVID-19 Vaccine Moderna - Documentation Purposes Only Franny Rosey Other [facility] 04-26-2020 COVID-19 Vaccine Moderna - Documentation Purposes Only Franny Rosey Other [facility] 01-23-2020 influenza, seasonal, injectable Franny Rosey Other [facility] 11-24-2019 influenza virus vaccine, unspecified formulation Randy Santana Work Phone: [facility] 250 DO Work Phone: 01-20-2019 Seasonal trivalent influenza vaccine, adjuvanted, preservative free Tatianna E Schwerer Work Phone: [facility] 250 DO Work Phone: 02-09-2018 influenza virus vaccine, unspecified formulation Randy Lulu ReynoldsSantana Work Phone: [facility] 250 DO Work Phone: 04-11-2016 pneumococcal polysaccharide vaccine, 23 valent Randy Reynoldsher Work Phone: [place] [address] DO Work Phone: Payers Date Payer Category Payer Self-pay [id number] 2019 Medicare [id number] 2019 Unknown [id number] 2. [id number] 1942 Unknown [id number] 2.16.8 [id number] 1942 Unknown [id number] 2.16. 840.1.910032.3.579.2.356 1942 Unknown [id number] 2.16.8 40.1.547264.3.579.2.718 1942 Unknown [id number] 2.16.8 40.1.610684.3.579.2.718 1942 Unknown [id number] 2.16.8 40.1.434141.3.579.2.718 1942 Unknown [id number] 2.16.8 40.1.554148.3.579.2.718 1942 Unknown [id number] 2.16.8 40.1.175697.3.579.2.718 1942 Unknown [id number] 2.16.8 40.1.609004.3.579.2.718 1942 Unknown [id number] 2.16.8 40.1.474230.3.579.2.718 1942 Unknown [id number] 2.16.8 40.1.029148.3.579.2.718 1942 Unknown [id number] 2.16.8 40.1.322197.3.579.2.718 1942 Unknown [id number] 2.16.8 40.1.046883.3.579.2.718 1942 Unknown [id number] 2.16.8 40.1.343449.3.579.2.718 1942 Unknown [id number] 2.16.8 40.1.090503.3.579.2.718 Unknown [id number] Unknown Unknown [id number] 2.16.8 40.1.460355.3.579.2.531 Social History Date Type Detail Facility Consumes alcohol Consumes alcohol -Luis F [facility] 250 DO Work Phone: Comment on above: 1 drink daily; 1-2 cups coffee; Quit: 02/2019; Sex Assigned At Sex Assigned At Bir th [employer] Other Start: 11-13-2021 End: 11-13-2021 Tobacco smoking status COIS Ex-smoker (finding) [facility] Start: 1940 Sex Assigned At Male F [facility] Start: 07-29-2023 Tobacco smoking status [facility] Never smoked tobacco (finding) [facility] Goals Date Patient Goal Desired Activity /State Clinical Notes 01-24-2021 to 01-22-2023 Note Date & Type Note Facility 01-22-2023 Evaluation note Encounter Date Diagnosis Assessment Notes Dec, Atrial fibrillation, unspecified type (ICD-10 - I48.91) [employer] [facility] Other 10-18-2023 Evaluation note* Encounter Date Diagnosis Assessment Notes Treatment Notes Treatment Clinical Notes Dec, 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 [employer] Other 04-19-2023 Evaluation note* Encounter Date Diagnosis Assessment Notes Treatment Notes Treatment Clinical Notes Jun, Dysphagia, unspecified type (ICD-10 - R13.10) [employer] Other 11-07-2022 Evaluation note* Encounter Date Diagnosis Assessment Notes Treatment Notes Treatment Clinical Notes Jan, Dysphagia, unspecified type (ICD-10 - R13.10) Start Omeprazole 40mg every morning Pt to call the office in 2-3 months with symptom update [employer] Other 11-01-2022 Evaluation note* Encounter Date Diagnosis Assessment Notes Treatment Notes Treatment Clinical Notes Jan, 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 [employer] Other 11-01-2022 Evaluation note* Encounter Date Diagnosis Assessment Notes Treatment Notes Treatment Clinical Notes Jan, Medicare annual wellness visit, initial (ICD-10 - Z00.00) Personalized health advice was given to the beneficiary including a written plan for screenings discussed and provided. Advanced care planning reviewed and/or information given as requested. Additional counseling was provided here today in regards to, ( ). The above visit was performed by Sara Vasquez LPN, IV-WILL, under direct supervision of Dr. Tatianna Yee DO. Document reviewed and amended by provider signed below. Jan, Type 2 diabetes mellitus without complication, without long-term current use of insulin (ICD-10 - E11.9) sugar is okay. continue to monitor in the spring. Jan, Atrial fibrillation, unspecified type (ICD-10 - I48.91) Jan, Essential tremor (ICD-10 - G25.0) doing well with klonipin. will continue. oarrs appropriate. [employer] Other 09-05-2022 Evaluation note* Encounter Date Diagnosis Assessment Notes Treatment Notes Treatment Clinical Notes Nov, Left foot pain (ICD-10 - M79.672) [employer] Other 08-01-2022 Evaluation note* Encounter Date Diagnosis Assessment Notes Treatment Notes Treatment Clinical Notes Oct, Dysphagia, unspecified type (ICD-10 - R13.10) Oct, Screen for colon cancer (ICD-10 - Z12.11) [facility] Other 07-29-2022 Evaluation note* Encounter Date Diagnosis Assessment Notes Treatment Notes Treatment Clinical Notes Sep, Dysphagia, unspecified type (ICD-10 - R13.10) Sep, Encounter for screening colonoscopy (ICD-10 - Z12.11) [facility] Other 07-26-2022 Evaluation note* Encounter Date Diagnosis Assessment Notes Treatment Notes Treatment Clinical Notes Sep, Type 2 diabetes mellitus without complication, without long-term current use of insulin (ICD-10 - E11.9) Last A1c was 6.7. He is diet controlled. We will continue to monitor roughly every 6 months. Sep, Dysphagia, unspecified type (ICD-10 - R13.10) Last visit we talked about this issue as well we did discuss referral to GI for EGD he declined at that time but now is ready. We will send referral he is also due for colonoscopy. Sep, Colon cancer screening (ICD-10 - Z12.11) See above. Sep, Essential tremor (ICD-10 - G25.0) He has essential tremors that he uses clonazepam for. He is a very poor historian in this regard. He reports he has been on clonazepam for over 30 years he does not take it daily since he can go years without it. He reports the other day he was on a couple coffee and started shaking really bad with his right hand. He then started back on his clonazepam that was last written in July 2020. I did discuss with him that better alternatives and different ways of treating with her medications. He is already on metoprolol succinate point adding propranolol. We did discuss primidone. Per up-to-date clonazepam is not improved treatment for essential tremors. He would prefer to stay on clonazepam as he knows that it works he he has been for many years. I did make him aware of the risk of addiction and abuse as this is a controlled medication. He agrees with this plan today I will give him clonazepam today and he will follow in 3 months. Sep, Dyslipidemia (ICD-10 - E78.5) We will update labs prior to next visit. Sep, Essential hypertension (ICD-10 - I10) Controlled the office today. Sep, Atrial fibrillation, unspecified type (ICD-10 - I48.91) Sep, Other Patient was giv en a written hand out of important bullet points of what we had talked about in today's office visit with reminders of ordered items, new or changed prescriptions, and follow-up timing. Patient was instructed if there are any questions/concerns to call the office between now and next office visit. Patient had all questions/concerns that were relayed to me in the office visit today discussed/addressed . Patient denied further questions at conclusion of office visit. 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 Recommend stopping at your [employer] company today for mask refit. [employer] Other Evaluation noteNo [employer] Other Evaluation noteNo assessment information available [facility] Work Phone: History general Narrative - Reported* Type Description Date Medical History COPD, severe..........oxygen 3L Medical History HYPERKALEMIA Medical History METABOLIC ALKALOSIS Medical History A-FIB Medical History BOWEL OBSTRUCTION Medical History GOUT Medical History HYPERLIPIDEMIA Medical History HYPERTENSION Medical History sleep apnea Medical History Chronic Hypercapnic Respiratory Failure Surgical History Partial Colectomy 2010 Surgical History tonsilectomy 12 y/o Surgical History right hand 2 & 3 digit sx Surgical History Dr Monroy-- 2009 Surgical History partial ileectomy 2009 Hospitalization History SEE ABOVE [employer] Other Hish[facility]u general Narrative - Reported* Type Description Date Medical History COPD, severe..........oxygen 3L Medical History HYPERKALEMIA Medical History METABOLIC ALKALOSIS Medical History A-FIB Medical History BOWEL OBSTRUCTION Medical History GOUT Medical History HYPERLIPIDEMIA Medical History HYPERTENSION Medical History sleep apnea Medical History Chronic Hypercapnic Respiratory Failure Medical History asthma Surgical History Partial Colectomy 2010 Surgical History tonsilectomy 12 y/o Surgical History right hand 2 & 3 digit sx Surgical History Dr Monroy-- 2009 Surgical History partial ileectomy 2009 Hospitalization History SEE ABOVE [employer] Other History of Present illness Narrative* Patient returns in follow-up of problems as noted. In the interim he is done well from a cardiologystandpoint. He is tolerating his permanent atrial fibrillation with no dyspnea. He does have some problems with leg edema but I believe it is multifactorial including atrial fibrillation, venous and/or lymphatic impairment, COPD with pulmonary hypertension. In light of this we suspect that improvement in the edema is difficult to achieve by fixing 1 of these problems and instead we recommend intensify diuretic therapy. His offers that he has not been using the diuretics and as a consequence we recommended that he use them at least part of the time. * His biggest problem appears to be chronic dyspnea related to advanced COPD. He is oxygen dependent and arrives today on oxygen therapy. We did advocate the merits of weight loss as a means to improvesome of his respiratory symptomatology. -[facility] 250 DO Work Phone: Hospital Discharge instructions Additional Instructions Follow up with your primary care doctor Return to the ED if you develop worsening [facility] Work Phone: Summary Purpose Family History No Family History Records FoundUnknown Family Member Name Dates Details Family history of cardiac di sorder: Mother(V17.49, Z82.49) Status:Active Unknown Family Member Name Dates Details Family history of cardiac di sorder: Mother(V17.49, Z82.49) Status:Active Unknown Family Member Name Dates Details Family history of cardiac di sorder: Mother(V17.49, Z82.49) Status:Active Unknown Family Member Name Dates Details Family history of cardiac di sorder: Mother(V17.49, Z82.49) Status:Active Unknown Family Member Name Dates Details Family history of cardiac di sorder: Mother(V17.49, Z82.49) Status:Active Unknown Family Member Name Dates Details Family history of cardiac di sorder: Mother(V17.49, Z82.49) Status:Active Unknown Family Member Name Dates Details Family history of cardiac di sorder: Mother(V17.49, Z82.49) Status:Active Unknown Family Member Name Dates Details Family history of cardiac di sorder: Mother(V17.49, Z82.49) Status:Active Relationship Condition Age at Onset Recorded Date/T masood Not Specified Pulmonary emphysema Unknown Unknown Family Member Name Dates Details Family history of cardiac di sorder: Mother(V17.49, Z82.49) Status:Active Unknown Family Member Name Dates Details Family history of cardiac di sorder: Mother(V17.49, Z82.49) Status:Active Unknown Family Member Name Dates Details Family history of cardiac di sorder: Mother(V17.49, Z82.49) Status:Active Unknown Family Member Name Dates Details Family history of cardiac di sorder: Mother(V17.49, Z82.49) Status:Active Unknown Family Member Name Dates Details Family history of cardiac di sorder: Mother(V17.49, Z82.49) Status:Active Unknown Family Member Name Dates Details Family history of cardiac di sorder: Mother(V17.49, Z82.49) Status:Active Unknown Family Member Name Dates Details Family history of cardiac di sorder: Mother(V17.49, Z82.49) Status:Active Unknown Family Member Name Dates Details Family history of cardiac di sorder: Mother(V17.49, Z82.49) Status:Active Unknown Family Member Name Dates Details Family history of cardiac di sorder: Mother(V17.49, Z82.49) Status:Active Unknown Family Member Name Dates Details Family history of cardiac di sorder: Mother(V17.49, Z82.49) Status:Active Relationship Condition Age at Onset Recorded Date/T masood Not Specified Pulmonary emphysema Unknown family member Coronary artery disease Unknown father Heart disease Unknown Unknown Coronary artery disease Unknown family member Unknown Not Specified Heart disease Unknown Advance Directives No Advanced Directives Records Found Advance Directive Response Recorded Date/ Time Advance Directives Yes December 26, 2016 12:55pm Advance Directive Response Recorded Date/ Time Advance Directives Yes December 26, 2016 11:55am Chief Complaint ELINOR FLANAGAN is being seen for a 10 month follow-up of.ELINOR FLANAGAN is being seen for an annual follow-up of. Reason for Referral Reason dysphagia -likely ne ed EGD sounds like stricture, due for colonoscopy as well Diagnosis 1 Dysphagia, unspecifi ed type (R13.10) Diagnosis 2 Colon cancer screeni ng (Z12.11) Referral Organization [facility] Joseph Dunlap Referring Provider First Name Tatianna Referring Provider Last Name Nakia Referring Provider Specialty Family Medi cine Referred Organization Unknown Facility Referred Provider Specialty Gastroentero logy Referral Priority Routine Chief Complaint and Reason for Visit Chief Complaint dysphagia, colonosco py screening, E11.9 E78.5 dysphagia, colonoscopy screening Chief Complaint dysphagia, colonosco py screening, E11.9 E78.5 dysphagia, colonoscopy screening I48.21 Chief Complaint dysphagia, colonosco py screening, E11.9 E78.5 dysphagia, colonoscopy screening I48.21 I48.21 Chief Complaint pt/inr Chief Complaint lt hip pain, nki Additional Source Comments (unrecognized sect ion and content) No Status Records FoundNo Status Records FoundNo Status Records FoundNo Status Records FoundNo Status Records FoundNo Status Records Found INFORMATION SOURCE (unrecogn ized section and content) DATE CREATED AUTHOR 06/19/2018 [facility] DATE CREATED AUTHOR AUTHOR'S ORGANIZ ATION [facility]07/[facility] DATE CREATED AUTHOR AUTHOR'S ORGANIZ ATION 08/06/2022 [facility] DATE CREATED AUTHOR AUTHOR'S ORGANIZ ATION 08/07/2022 [employer] DATE CREATED AUTHOR AUTHOR'S ORGANIZ ATION 08/01/2023 [facility] DATE CREATED AUTHOR AUTHOR'S ORGANIZ ATION 08/09/[address] 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 Hypercapnic Resp Failure, Sleep Apnea6 mo f/u Asthma w COPD, Sleep ApneaDISCUSS CLONAZEPAM, EATING ISSUESEMAIL PPWCOVID TEST ORDERTest resultsMedicationEGD/COLON REPORT6 mo f/u Couch, Allergic Rhinitis, Diatal Hernia, GERDMCAWVPT COMPLAINING OF DYSPHAGIARefills-Qhfzfpczlp14 month f/uPT/INRNo InformationPT/INRlabsPT/INRINR Care Teams (unrecognized sec tion and content) Team Status: Inactive Member Role Status Dates Tatianna Yee , DO Primary Care Provider, Other P rovider Active Ori Young MD Attending Provider Active Team Status: Inactive Member Role Status Dates Tatianna Yee , DO Primary Care Provider Active Ori Young MD Attending Provider Active Team Status: Active Member Role Status Dates Taitanna Yee , DO Primary Care Provider Active Team Status: Inactive Member Role Status Dates Tatianna Yee , DO Primary Care Provider Active Dannielle Gan MD Attending Provider Active Team Status: Inactive Member Role Status Dates Tatianna Yee , DO Primary Care Provider Active Start: July 29, 2023 End: July 29, 2023 Santy Mayfield , DO Emergency Provider Active Sta rt: July 29, 2023 End: July 29, 2023 Goals (unrecognized section and content) Goals may be documented in a n alternate section FOR RECORDS PERTAINING TO PATIENTS WHO ARE OR HAVE BEEN ENROLLED IN A CHEMICAL DEPENDENCY/SUBSTANCEABUSE PROGRAM, SOME INFORMATION MAY BE OMITTED. This clinical summary was aggregated from multiple sources. Caution should be exercised in using it in the provision of clinical care. This summary normalizes information from multiple sources, and as a consequence, information in this document may materially change the coding, format and clinical context of patient data. In addition, data may be omitted in some cases. CLINICAL DECISIONS SHOULD BE BASED ON THE PRIMARY CLINICAL RECORDS. [facility] [employer] [facility]. provides no warranty or guarantee of the accuracy or completeness of information in this document.
[2023-08-10 21:40] LABS: Prothrombin Time 25.9 sec (9.0-11.6)
== END 2023-08-10 21:13 | disposition home or self-care (01) ==
LOC: LAB 21:12
PROVIDERS: PCP Family Medicine; Visit Provider Family Medicine
DX: Z79.01 Long term (current) use of anticoagulants (principal)
CPT/HCPCS: 36415; 85610